=== PATIENT | female | born 1975 | race Caucasian/White ===

== ENCOUNTER → 2017-02-15 | Outpatient (CLI) | payer BC, MEDICAID, OTHER ==
[~2017-02-15] MED LIST: HYDR-757 PO; PREN1TAB39 PO
--- NOTE | 2017-02-19 14:03 | Diagnostic Imaging Report ---
EXAMINATION: Bilateral screening mammogram 2D views with tomosynthesis. The current study was also evaluated with a Computer Aided Detection (CAD) system. INDICATION: Screening. PERSONAL HISTORY: No current complaints stated on the questionnaire. COMPARISON: None. This is a baseline study. FINDINGS: The breasts are composed of scattered fibroglandular densities. There are occasional benign-appearing calcifications. No mass, architectural distortion, or suspicious cluster of calcifications. IMPRESSION: No mammographic evidence of malignancy. Annual screening mammograms are recommended. ACR BI-RADS Category 2: Benign findings. Result letter will be mailed to the patient. Note: At least 10% of breast cancer is not imaged by mammography. Dictated by: Dictated on workstation # [id number]
== END ==
LOC: RAD 14:31
PROVIDERS: ATTEND Nurse Practitioner Family
DX: Z12.31 Encounter for screening mammogram for malignant neoplasm of breast (principal)
CPT/HCPCS: 77067

== ENCOUNTER 2018-07-11 08:28 | Inpatient (IN) | payer SELFPAY ==
[~2018-07-11] VITALS: Ht 154.9 cm; Wt 122.0 kg
[2018-07-11] MEDS ORDERED: NS IV 500 ML 500 ML IV ONE (08:44)
[2018-07-11] MEDS ORDERED: NS IV 1000 ML 1,000 ML IV SCH (08:44)
[2018-07-11] MEDS ORDERED: ONDANSETRON 4 MG/2 ML (SDV) Z0FRAN IV PRN (08:45)
[2018-07-11] MEDS ORDERED: KETOROLAC 30 MG/ML VIAL IVP ONE (08:45)
[2018-07-11] MEDS ORDERED: cefTRIAXone FOR IV USE 1,000 MG in WATER (STERILE) FOR INJECTION 10 ML IV ONE (08:45)
--- NOTE | 2018-07-11 08:53 | ED GU-Female ---
General Chief Complaint: - Urinary Stated Complaint: LOWER ABD/BACK PAIN Source: patient Exam Limitations: no limitations History of Present Illness Date Seen by Provider: Jul 11, 2018 Time Seen by Provider: 08:40 Initial Comments The patient presents to ER by private conveyance with chief complaint of 5 days of left lower quadrant inguinal pain radiating around from her left flank. She is having dysuria, nausea and severe pain. The pain is coming and going worse with movement. She has a history of kidney stones with her last one being about 10 years ago after she had to have lithotripsy. She went to her doctor a few days ago and was put on antibiotic told she had a severe UTI 5 days she's completed those antibiotics but still does not feel any better. She denies any diarrhea or constipation. Allergies and Home Medications Allergies Coded Allergies: clindamycin (Unverified Allergy, Unknown, 07/11/18) Home Medications Nitrofurantoin Monohyd/M-Cryst 100 Mg Capsule, 1 TAB PO BID, (Reported) Patient Home Medication List Home Medication List Reviewed: Yes Review of Systems Review of Systems Constitutional: chills; No fever; malaise EENTM: No ear discharge, No ear pain Respiratory: No cough, No wheezing Cardiovascular: No chest pain, No edema Gastrointestinal: see HPI, abdominal pain; No constipation, No diarrhea; nausea , vomiting Genitourinary: denies discharge, denies dysuria : No Musculoskeletal: see HPI; No back pain, No joint pain Past Lrytszi-Estpos-Kpcowg Hx Patient Social History Alcohol Use: Denies Use Recreational Drug Use: No Smoking Status: Never a Smoker Recent Foreign Travel: No Contact w/Someone Who Travel: No Seasonal Allergies Seasonal Allergies: No Past Medical History Reproductive Disorders: No Physical Exam Vital Signs Vital Signs - First Documented 07/11/18 08:35 Temp 100.7 Pulse 131 Resp 24 B/P (MAP) 125/67 (86) Pulse Ox 96 Capillary Refill : Height, Weight, BMI Height: 5'3" Weight: 200lbs. oz. 90.003899rb; BMI Method:Stated General Appearance: WD/WN, mild distress HEENT: PERRL/EOMI, pharynx normal Cardiovascular: normal peripheral pulses, regular rate, rhythm, no edema, tachycardia Respiratory: lungs clear, normal breath sounds, no respiratory distress, no accessory muscle use Gastrointestinal: normal bowel sounds, soft, tenderness (suprapubic and left lower quadrant tenderness to palpation) Extremities: normal range of motion, non-tender, normal inspection, normal capillary refill Neurologic/Psychiatric: alert, normal mood/affect, oriented x 3 Skin: normal color, warm/dry Focused Exam Lactate Level 07/11/18 08:45: Lactic Acid Level 1.46 Lactic Acid Level Laboratory Tests Test 07/11/18 08:45 Lactic Acid Level 1.46 MMOL/L (0.50-2.00) Progress/Results/Core Measures Suspected Sepsis SIRS Temperature: Pulse: Respiratory Rate: Laboratory Tests 07/11/18 08:45: White Blood Count 31.8*H Blood Pressure / Mean: 07/11/18 08:45: Lactic Acid Level 1.46 Laboratory Tests 07/11/18 08:45: Creatinine 0.75, INR Comment 1.1, Platelet Count 412H, Total Bilirubin 1.0 Results/Orders Lab Results Laboratory Tests Test 07/11/18 08:45 Range/Units White Blood Count 31.8 *H 4.3-11.0 10^3/uL Red Blood Count 4.50 4.35-5.85 10^6/uL Hemoglobin 12.1 11.5-16.0 G/DL Hematocrit 37 35-52 % Mean Corpuscular Volume 83 80-99 FL Mean Corpuscular Hemoglobin 27 25-34 PG Mean Corpuscular Hemoglobin Concent 32 32-36 G/DL Red Cell Distribution Width 14.8 H 10.0-14.5 % Platelet Count 412 H 130-400 10^3/uL Mean Platelet Volume 9.3 7.4-10.4 FL Neutrophils (%) (Auto) 87 H 42-75 % Lymphocytes (%) (Auto) 5 L 12-44 % Monocytes (%) (Auto) 8 0-12 % Eosinophils (%) (Auto) 0 0-10 % Basophils (%) (Auto) 0 0-10 % Neutrophils # (Auto) 27.5 H 1.8-7.8 X 10^3 Lymphocytes # (Auto) 1.7 1.0-4.0 X 10^3 Monocytes # (Auto) 2.6 H 0.0-1.0 X 10^3 Eosinophils # (Auto) 0.0 0.0-0.3 10^3/uL Basophils # (Auto) 0.0 0.0-0.1 10^3/uL Neutrophils % (Manual) 91 % Lymphocytes % (Manual) 5 % Monocytes % (Manual) 4 % Eosinophils % (Manual) 0 % Basophils % (Manual) 0 % Band Neutrophils 0 % Blood Morphology Comment NORMAL Prothrombin Time 14.0 12.2-14.7 SEC INR Comment 1.1 0.8-1.4 Activated Partial Thromboplast Time 37 H 24-35 SEC Urine Color YELLOW Urine Clarity CLEAR Urine pH 7 5-9 Urine Specific [place] 1.005 L 1.016-1.022 Urine Protein 2+ H NEGATIVE Urine Glucose (UA) NEGATIVE NEGATIVE Urine Ketones 3+ H NEGATIVE Urine Nitrite NEGATIVE NEGATIVE Urine Bilirubin NEGATIVE NEGATIVE Urine Urobilinogen NORMAL NORMAL MG/DL Urine Leukocyte Esterase 1+ H NEGATIVE Urine RBC (Auto) 5+ H NEGATIVE Urine RBC 5-10 H /HPF Urine WBC RARE /HPF Urine Squamous Epithelial Cells 2-5 /HPF Urine Crystals NONE /LPF Urine Bacteria NEGATIVE /HPF Urine Casts NONE /LPF Urine Mucus NEGATIVE /LPF Urine Culture Indicated CULTURE PENDING Sodium Level 133 L 135-145 MMOL/L Potassium Level 3.8 3.6-5.0 MMOL/L Chloride Level 98 98-107 MMOL/L Carbon Dioxide Level 23 21-32 MMOL/L Anion Gap 12 5-14 MMOL/L Blood Urea Nitrogen 6 L 7-18 MG/DL Creatinine 0.75 0.60-1.30 MG/DL Estimat Glomerular Filtration Rate > 60 BUN/Creatinine Ratio 8 Glucose Level 162 H 70-105 MG/DL Lactic Acid Level 1.46 0.50-2.00 MMOL/L Calcium Level 9.3 8.5-10.1 MG/DL Corrected Calcium 9.5 8.5-10.1 MG/DL Total Bilirubin 1.0 0.1-1.0 MG/DL Aspartate Amino Transf (AST/SGOT) 12 5-34 U/L Alanine Aminotransferase (ALT/SGPT) 10 0-55 U/L Alkaline Phosphatase 81 40-136 U/L Total Protein 7.5 6.4-8.2 GM/DL Albumin 3.7 3.2-4.5 GM/DL My Orders Orders - CHRISTOPH GIBBS Ua Culture If Indicated (07/11/18 08:34) Urine Bedside (07/11/18 08:34) Ketorolac Injection (Toradol Injection) (07/11/18 08:45) Ct Abd/Pelvis Wo(Kidney Stone) (07/11/18 08:44) Abdomen/Kub 1view (07/11/18 08:44) Cbc With Automated Diff (07/11/18 08:44) Comprehensive Metabolic Panel (07/11/18 08:44) Blood Culture (07/11/18 08:44) Urine Culture (07/11/18 08:44) Protime With Inr (07/11/18 08:44) Partial Thromboplastin Time (07/11/18 08:44) Saline Lock/Iv-Start (07/11/18 08:44) Saline Lock/Iv-Start (07/11/18 08:44) Vital Signs Adult Sepsis Patie Q15M (07/11/18 08:44) Ondansetron Injection (Zofran Injectio (07/11/18 08:45) O2 (07/11/18 08:44) Remove Rings In Anticipation O (07/11/18 08:44) Lactic Acid Analyzer (07/11/18 08:44) Ns Iv 1000 Ml (Sodium Chloride 0.9%) (07/11/18 08:44) Ceftriaxone For Iv Use (Rocephin For I (07/11/18 08:45) Saline Lock/Iv-Start (07/11/18 08:44) Ns Iv 500 Ml (Sodium Chloride 0.9%) (07/11/18 08:44) Manual Differential (07/11/18 08:45) Piperacillin/Tazobactam (Bulk) (Zosyn In (07/11/18 09:30) Medications Given in ED Current Medications Medications Dose Ordered Sig/Carmen Route Start Time Stop Time Status Last Admin Dose Admin Ketorolac Tromethamine 30 mg ONCE ONCE IVP 07/11/18 08:45 07/11/18 08:49 DC 07/11/18 09:02 30 MG Ondansetron HCl 4 mg PRN PRN IV 07/11/18 08:45 07/11/18 09:03 DC 07/11/18 09:02 4 MG Piperacillin Sod/ Tazobactam Sod 4.5 gm/Sodium Chloride 120 ml @ 240 mls/hr ONCE ONCE IV 07/11/18 09:30 07/11/18 09:59 DC 07/11/18 09:42 240 MLS/HR Sodium Chloride 500 ml @ 0 mls/hr Q0M ONCE IV 07/11/18 08:44 07/11/18 08:49 DC 07/11/18 09:45 500 MLS/HR Vital Signs/I&O 07/11/18 08:35 Temp 100.7 Pulse 131 Resp 24 B/P (MAP) 125/67 (86) Pulse Ox 96 Capillary Refill : Progress Note : Time: Progress Note Kidney stone versus pyelonephritis. Get a CT scan, abdominal x-ray, septic workup. We adjusted her body weight to 146 pounds based on an ideal body weight adjustment. This puts a 20 mL/kg bolus at 1500 cc. The plan was initially to give Rocephin but we are going to switch this to Zosyn as it appears to be an intra-abdominal abscess. Diagnostic Imaging Diagonstic Imaging: Xray Plain Films/CT/US/NM/MRI: abdomen (kub) Comments [facility], [place] NAME: SAMMY BRADFORD Michelle [facility] REC#: [id number] PT STATUS: REG ER : 1975 PHYSICIAN: CHRISTOPH GIBBS MD ADMIT DATE: 07/11/18/ER Draft Date of Exam:07/11/18 ABDOMEN/KUB 1VIEW Supine abdomen at 913 hours. INDICATION: Abdominal pain. 2 supine views were obtained. FINDINGS: There is a 4.8 MM calcification overlying the left pelvis and a 3.5 MM calculus overlying the right pelvis. There is also a 5 MM calculus overlying the superior pole of the left kidney and a 2.3 MM calculus overlying the superior pole of the right kidney. None of these calcifications were evident on the prior exam of 07/09/2007. It is possible that the calcifications overlying the kidneys are intrarenal and that the calcifications in the pelvis are within the ureters. Reportedly, CT of the abdomen or pelvis is pending for further study. There is gas in both large and small bowel in a nonspecific fashion. There is no sign of bowel obstruction. There is no mass or organomegaly appreciated. The osseous structures are intact. IMPRESSION: There are calcifications overlying the kidneys in the expected paths of the ureters. Reportedly, CT of the abdomen and pelvis is pending for further study. Dictated on workstation # [id number] Dict: 07/11/18918 Trans: 07/11/18932 [id number] Interpreted by: VAMSI HENDRICKS MD Electronically signed by: Reviewed: Reviewed by Me Diagonstic Imaging: CT (kidney stone study noncontrast) Plain Films/CT/US/NM/MRI: abdomen, pelvis Comments There is a phlegmon of inflammation and at the level of the left side of the uterus and ovary as well as the sigmoid colon. There is diverticula on the sigmoid colon and some free air which would indicate a possible perforated diverticulitis versus tubo-ovarian abscess. There are kidney stones but no ureteral stones. Reviewed: Reviewed by Me, Discussed w/Radiologist (Isaias Romo) Consults Consults : Consulting Physician: EDNA WILLIAM MD Consults Notes Discussed the case with Dr. William surgery nurse and he would come by and see the patient as soon as he is available. 1030: Discussed the case after he is reviewed the images. Dr. Romo from radiology does not feel he could put a pigtail in because is not mature enough yet. He will see the patient up on the floor we will admit to him on IV fluids, antibiotics, pain meds. Departure Communication (Admissions) Time/Spoke to Admitting Phy: 10:30 Dr. William accepts the patient on IV fluids, antibiotics, pain medicines and will see the patient. Impression Primary Impression: Perforation and abscess of large intestine concurrent with and due to diverticulitis Additional Impression: Sepsis Qualified Codes: A41.9 - Sepsis, unspecified organism Disposition: ADMITTED INPATIENT Condition: Stable Admissions Decision to Admit Reason: Admit from ER (General) Decision to Admit/Date: Jul 11, 2018 Time/Decision to Admit Time: 09:32 Departure-Patient Inst. Referrals: [facility] [place] (PCP) Primary Care Physician CHRISTOPH GIBBS Jul 11, 2018 08:52
[2018-07-11 09:02] LABS: BASOPHILS % (AUTO) 0 % (0-10); EOSINOPHILS % (AUTO) 0 % (0-10); HEMATOCRIT 37 % (35-52); HEMOGLOBIN 12.1 G/DL (11.5-16.0); LYMPHOCYTES # (AUTO) 1.7 X 10^3 (1.0-4.0); LYMPHOCYTES % (AUTO) 5 % (12-44); MEAN CORPUSCULAR HEMOGLOBIN 27 PG (25-34); MEAN CORPUSCULAR HGB CONC 32 G/DL (32-36); MEAN CORPUSCULAR VOLUME 83 FL (80-99); MEAN PLATELET VOLUME 9.3 FL (7.4-10.4); MONOCYTES # (AUTO) 2.6 X 10^3 (0.0-1.0); MONOCYTES % (AUTO) 8 % (0-12); NEUTROPHILS # (AUTO) 27.5 X 10^3 (1.8-7.8); NEUTROPHILS % (AUTO) 87 % (42-75); PLATELET COUNT 412 10^3/uL (130-400); RED CELL DISTRIBUTION WIDTH 14.8 % (10.0-14.5)
[2018-07-11 09:04] LABS: WHITE BLOOD COUNT 31.8 10^3/uL (4.3-11.0)
[2018-07-11 09:07] LABS: BILIRUBIN,URINE NEGATIVE (NEGATIVE); GLUCOSE, URINE (UA) NEGATIVE (NEGATIVE); KETONES,URINE 3+ (NEGATIVE); LEUKOCYTE ESTERASE ,URINE 1+ (NEGATIVE); NITRITE,URINE NEGATIVE (NEGATIVE); PH,URINE 7 (5-9); PROTEIN,URINE 2+ (NEGATIVE); UROBILINOGEN,URINE NORMAL (NORMAL)
[2018-07-11 09:19] LABS: BAND NEUTROPHILS 0 %; BASOPHILS % (MANUAL) 0 %; EOSINOPHILS % (MANUAL) 0 %; INR 1.1 (0.8-1.4); LYMPHOCYTES % (MANUAL) 5 %; MONOCYTES % (MANUAL) 4 %; NEUTROPHILS % (MANUAL) 91 %; RBC MORPH NORMAL
[2018-07-11 09:22] LABS: ALANINE AMINOTRANSFERASE 10 U/L (0-55); ALBUMIN 3.7 GM/DL (3.2-4.5); ALKALINE PHOSPHATASE 81 U/L (40-136); BUN/CREATININE RATIO 8; CALCIUM 9.3 MG/DL (8.5-10.1); CARBON DIOXIDE 23 MMOL/L (21-32); CHLORIDE 98 MMOL/L (98-107); CREATININE SERUM 0.75 MG/DL (0.60-1.30); GFR ESTIMATED > 60; GLUCOSE 162 MG/DL (70-105); POTASSIUM 3.8 MMOL/L (3.6-5.0); SODIUM 133 MMOL/L (135-145); TOTAL PROTEIN 7.5 GM/DL (6.4-8.2)
[2018-07-11 09:23] LABS: BACTERIA,URINE NEGATIVE /HPF; CLARITY,URINE CLEAR; COLOR,URINE YELLOW; WBC,URINE RARE /HPF
[2018-07-11] MEDS ORDERED: PIPERACILLIN/TAZOBACTAM (BULK) 4.5 GM in NS (IVPB) 100 ML IV ONE (09:30)
--- NOTE | 2018-07-11 09:34 | Diagnostic Imaging Report ---
Supine abdomen at 913 hours. INDICATION: Abdominal pain. 2 supine views were obtained. FINDINGS: There is a 4.8 MM calcification overlying the left pelvis and a 3.5 MM calculus overlying the right pelvis. There is also a 5 MM calculus overlying the superior pole of the left kidney and a 2.3 MM calculus overlying the superior pole of the right kidney. None of these calcifications were evident on the prior exam of 07/09/2007. It is possible that the calcifications overlying the kidneys are intrarenal and that the calcifications in the pelvis are within the ureters. Reportedly, CT of the abdomen or pelvis is pending for further study. There is gas in both large and small bowel in a nonspecific fashion. There is no sign of bowel obstruction. There is no mass or organomegaly appreciated. The osseous structures are intact. IMPRESSION: There are calcifications overlying the kidneys and the expected paths of the ureters. Reportedly, CT of the abdomen and pelvis is pending for further study. Dictated by: Dictated on workstation # [id number]
[2018-07-11] MEDS ORDERED: NITR-65 PO (09:53)
[2018-07-11] MEDS ORDERED: PHEN-639 PO (09:53)
--- NOTE | 2018-07-11 09:54 | Diagnostic Imaging Report ---
PROCEDURE: CT urinary tract, rule out kidney stone. TECHNIQUE: Multiple contiguous axial images were obtained through the abdomen and pelvis without the use of intravenous contrast. Auto Exposure Controls were utilized during the CT exam to meet ALARA standards for radiation dose reduction. INDICATION: Left lower abdominal pain radiating to the back. The patient does have a history of kidney stones. Correlation is made with prior CT from 06/13/2007. The lung bases are clear of acute infiltrates. The liver and gallbladder are unremarkable. No biliary duct dilatation is seen. The pancreas and spleen are unremarkable. No adrenal mass is detected. Bilateral nonobstructing renal calculi are noted, the largest in the upper pole left kidney measuring approximately 6 mm. No definite ureteral calculi or hydronephrosis is seen. No bladder calculi identified. Aorta is nonaneurysmal. Bowel loops are normal caliber. Marked inflammatory changes are identified in the midline and left hemipelvis. There are some diverticuli within the sigmoid colon. Along the left aspect of the uterine fundus, there is an area of rounded soft tissue which contains some small air bubbles. This measures 4.7 x 3.6 cm. There are additional small air bubbles which are extraluminal located between the uterus and the sigmoid. Marked surrounding inflammatory changes are seen. Inflammatory changes extend deep into the left pelvis. The left ovary is not definitely identified. Right ovary is unremarkable. There is no free fluid identified. IMPRESSION: 1. Bilateral nonobstructing nephrolithiasis. 2. Marked inflammatory changes in the pelvis, as described with small gas bubbles present. While this may merely represent acute diverticulitis with microperforation and phlegmon formation adjacent to the uterine fundus, other etiology would include tubo-ovarian abscess with small gas-forming organisms creating small air bubbles with some adjacent secondary inflammatory changes involving the sigmoid. No well-formed fluid collection is identified at this time. Dictated by: Dictated on workstation # [id number]
--- OUTSIDE RECORDS SUMMARY | 2018-07-11 11:36 | XMS REPORT ---
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 [id number] [place] [address] Feb, Viral upper respiratory tract infection J06.9 and BMI 50.0- 59.9, adult Z68.43 [id number] [place] [id number] August, Low sodium levels E87.1 and Lipid screening Z13.220 [address] [place] [address] [id number] August, Polydipsia R63.1 ; History of gestational diabetes Z86.32 ; Morbid (severe ) obesity due to excess calories E66.01 ; Body mass index (BMI) of 50-59.9 in adult Z68.43 ; Polyphagia R63.2 ; Frequent urination R35.0 and BMI 50.0-59.9, adult Z68.[address] [facility] [address] [id number] [id number] Jun, Strep throat J02.0 and Cough R05 [facility] [address] [address] May, 2018 BMI 50.0-59.9, adult Z68.43 ; Sore throat J02.9 and Strep throat J02.0 [facility] [id number] [id number] Jan, 2017 Well woman exam with routine gynecological exam Z01.419 ; Screening breast examination Z12.31 ; High risk sexual behavior Z72.51 ; Other obesity due to excess calories E66.09 ; Body mass index (BMI) of 50-59.9 in adult Z68.43 ; Tobacco abuse Z72.0 and Tobacco abuse counseling Z71.6 [facility] [id number] [place] [address] May, Sore throat J02.9 [facility] [id number] [place] [address]67 May, [facility] [id number] [place] [address]159[address] Feb, [facility] [id number] [place] [address]5814- [address]26 Jun, [facility] [id number] [place] [address]12[address] 8072 Apr, Ankle pain, left M25.572 [facility] [id number] [place] [address] Apr, [facility] [id number] [place] [address] Apr, Ankle pain, left M25.572 [facility] [id number] [place] [address] 68974- 1340 Dec, ASCUS with positive high risk HPV cervical 795.01 [id number] [place] [address]0982- 8[address] 16 Dec, 2014 Gestational diabetes mellitus, delivered 648.81 [id number] [place] [address]343[address] 14 Dec, 2014 Routine follow-up V24.2 ; General counselling and advice on contraception V25.09 and Gestational diabetes mellitus, delivered 648.81 [place] [id number] [place] [address]31[address] Nov, Oligohydramnios in second trimester 658.03 ; Rupture, membranes, premature 658.10 ; Gestational diabetes 648.80 and Supervision of high-risk of elderly multigravida V23.82 [address] [id number] [place] [address]17[address] 4[address] Oct, Supervision of high-risk of elderly multigravida V23.82 and premature rupture of membranes (PPROM) with unknown onset of labor 658.10 [address] [id number] [place] [address] 03043[address] 9469 Oct, Supervision of high-risk of elderly multigravida V23.82 and premature rupture of membranes (PPROM) with unknown onset of labor 658.10 [place] [id number] [place] [address] 30843[address] 1666 Oct, Supervision of high-risk of elderly multigravida V23.82 ; TDAP DX V06.1 ; Oligohydramnios in second trimester 658.03 ; premature rupture of membranes (PPROM) with unknown onset of labor 658.10 and Gestational diabetes 648.80 [address] [place] [id number] [place] [address]68- 4706 Oct, Oligohydramnios in second trimester 658.03 ; premature rupture of membranes (PPROM) with unknown onset of labor 658.10 ; Supervision of high-risk of elderly multigravida V23.82 and Gestational diabetes 648.80 [facility] [address] [address] Sep, [facility] [id number] [place] [address] 85604- 1096 Sep, Abnormal glucose tolerance in 648.80 [facility] [address] [place] [address] 87051- 4721 Sep, Oligohydramnios in second trimester 658.03 ; Rupture, membranes, premature 658.10 and Supervision of high-risk of elderly multigravida V23.82 [facility] [address] [place] [address] 37111- 7799 Sep, [facility] [id number] [place] [address]86- 2005 Sep, [address] [id number] [place] [address] 85732- 0486 Sep, [facility] [address] [place] [address] 72263- 1114 Sep, [facility] [address] [place] [address] 40382- 5640 Sep, Supervision of high-risk of elderly multigravida V23.82 ; Oligohydramnios in second trimester 658.03 and premature rupture of membranes (PPROM) with unknown onset of labor 658.10 [address] [place] [address] 08187- 8863 August, Supervision of high-risk of elderly multigravida V23.82 [facility] [address] [address] Jul, [facility] [address] [place] [address] 38368- 3911 Jul, [facility] [address] [address] Jun, [facility] [place] [facility] [address] [id number] [place] [address] Jun, [facility] [place] [facility] [address] [id number] [place] [address] Jun, [facility] [place] [facility] [address] [id number] [place] [address] Jun, [facility] [place] [facility] [address] [id number] [place] [address]- 4708 Jun, [facility] [place] [facility] [address] [id number] [place] [address] Jun, [facility] [place] [facility] [address] [id number] [place] [address]- 5330 Jun, [facility] [place] [facility] [address] [facility] [id number] [place] [address] Jun, [facility] [place] [facility] [address] [id number] [place] [address]- 65[address] Jun, [facility] [place] [facility] [address] [id number] [place] [address] 3310 May, [facility] [place] [facility] [address] [id number] [place] [address]- 2292 May, [facility] [place] [facility] [address] [facility] [id number] [place] [address]- 2573 May, [facility] [place] [facility] [address] [id number] [place] [address]- 6543 May, [facility] [place] [facility] [address] [id number] [place] [address]- 5066 May, [facility] [place] [facility] [address] [id number] [place] [address]- 4699 May, [facility] [place] [facility] [address] [facility] [id number] [place] [address]- 47[address] May, [facility] [place] [facility] [address] [facility] [id number] [address] May, 2014 [facility] [address] [facility] [id number] [address] May, 2014 [facility] [place] [facility] [address] [facility] [id number] [address] May, 2014 [facility] [address] [facility] [id number] [address] May, 2014 [facility] [place] [facility] [address] [facility] [id number] [address] May, 2014 [facility] [address] [facility] [id number] [address] May, 2014 [facility] [address] [id number] [id number] Apr, [facility] [address] [address] Apr, [facility] [address] [id number] [place] [id number] Nov, [facility] [address] [id number] [place] [id number] Apr, [facility] [address] [facility] [id number] [place] [id number] Apr, [facility] [place] [facility] [address] [address] Jan, [facility] [place] [facility] [address] [facility] [id number] [address] Jan, [facility] [address] [id number] [place] [id number] Jan, [facility] [address] [id number] RIVER[place] [id number] Dec, [facility] [address] [id number] [place] [id number] Nov, [facility] [address] [id number] [place] [id number] Oct, [facility] [place] [facility] [id number] [address] Mar, [facility] [id number] [address] Mar, [facility] [address] [address] Mar, [facility] [address] [address]67 Sep, [facility] [address] [address] May, [facility] [address] [place] [address] 97450- 6251 Mar, [facility] [address] [address] May, IMMUNIZATIONS Vaccine Route Administration Date Status DEXAMETHASONE 4MG/ML (PER 1 MG) IM Intramuscular Mar 11, 2018 Administered DEPO MEDROL 40 MG/ML IM Intramuscular Mar 11, 2018 Administered SOCIAL HISTORY Never Assessed REASON FOR VISIT sore throat; swallowing hurts on the left side/feels raw - JORDAN Mosley, Taking Tylenol and NyQuil PLAN OF CARE Activity Details Follow Up if not improving with PCP or reg follow up Reason: VITAL SIGNS Height 61 in 2018-03-11 Weight 271.0 lbs 2018-03-11 Temperature 98.1 degrees Fahrenheit 2018-03-11 Heart Rate 80 bpm 2018-03-11 Respiratory Rate 2018-03-11 BMI 51.20 kg/m2 2018-03-11 Blood pressure systolic 130 mmHg 2018-03-11 Blood pressure diastolic 80 mmHg 2018-03-11 MEDICATIONS Medication Instructions Dosage Frequency Start Date End Date Duration Status Tylenol Cold/Flu Severe 3-29-727-325 MG Orally Four times a day 2 tablets as needed 6h Active NyQuil Cold & Flu Active RESULTS No Results PROCEDURES Procedure Date Ordered Result Body Site DEPO MEDROL 40 MG/ML Mar 11, 2018 DEXAMETHASONE 4MG/ML (PER 1 MG) Mar 11, 2018 THER/PROPH/DIAG INJ, SC/IM Mar 11, 2018 INSTRUCTIONS MEDICATIONS ADMINISTERED No Known Medications MEDICAL (GENERAL) HISTORY Type Description Date Medical History hx of Gestational DM Surgical History tubal ligation Surgical History Kidney stones 2006 Hospitalization History child Hospitalization History flu with tiago Ackerman 1992
--- OUTSIDE RECORDS SUMMARY | 2018-07-11 11:37 | XMS REPORT ---
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
--- OUTSIDE RECORDS SUMMARY | 2018-07-11 11:37 | XMS REPORT ---
Author Author KELLY CENTENO eClinicalWorks Address Unknown Phone Unavailable Care Team Providers Care Consulting Technical Director Name Role Phone KELLY CENTENO CP Unavailable Allergies, Adverse Reactions, Alerts Substance Reaction Event Type N.K.D.A. 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 Assessment Routine follow-up V24.2 Active Problem Gestational diabetes mellitus, delivered 648.81 Active Assessment General counselling and advice on contraception V25.09 Active Assessment Gestational diabetes mellitus, delivered 648.81 Active Medications No Known Medications Procedures Procedure Coding System Code Date Office Visit, Est Pt., Level 3 CPT-4 88201 Jan 03, 2015 URINE TEST CPT-4 91084 Jan 03, 2015 Vital Signs Date/Time: Jan 03, 2015 Temperature 98.0 F Weight 261.5 lbs Height 61 in BMI 49.40 Index Blood Pressure Diastolic 76 mmHg Blood Pressure Systolic 130 mmHg Results No Known Results Summary Purpose eClinicalWorks Submission
--- OUTSIDE RECORDS SUMMARY | 2018-07-11 11:37 | XMS REPORT ---
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 204240223 Problem Morbid (severe) obesity due to excess calories E66.01 Active 81610643111470 Problem Polydipsia R63.1 Active 52250804 Problem Body mass index (BMI) of 50-59.9 in adult Z68.43 Active 209019557 Problem Other obesity due to excess calories E66.09 Active 68370630583293 Problem Polyphagia R63.2 Active 535394087 Problem History of gestational diabetes Z86.32 Active 990172985 ALLERGIES Substance Reaction Event Type Date Status Clindamycin HCl hives Drug Allergy Jan, Active ENCOUNTERS Encounter Location Date Diagnosis [facility] [address] [facility] [id number] [id number] August, [address] [id number][place] [id number] August, Polydipsia R63.1 ; History of gestational diabetes Z86.32 ; Morbid (severe ) obesity due to excess calories E66.01 ; Body mass index (BMI) of 50-59.9 in adult Z68.43 ; Polyphagia R63.[address] [facility] [address] [id number] [id number] Jun, Strep throat J02.0 and Cough R05 [facility] [address] [facility] [id number] [address] 07 Feb, 2018 BMI 50.0-59.9, adult Z68.43 ; Sore throat J02.9 and Strep throat J02.0 [facility] [id number] [address] Jan, Well woman exam with routine gynecological exam Z01.419 ; Screening breast examination Z12.31 ; High risk sexual behavior Z72.51 ; Other obesity due to excess calories E66.09 ; Body mass index (BMI) of 50-59.9 in adult Z68.43 ; Tobacco abuse Z72.0 and Tobacco abuse counseling Z71.6 [facility] [id number] [place] [address]47 May, Sore throat J02.9 [place] [id number] [place] [address] 36461- 4748 May, [place] [id number] [place] [address] 89607- 3253 Feb, [facility] [id number] [place] [address] 50333- 8295 Jun, [facility] [id number] [place] [address] 67266- 9799 Apr, Ankle pain, left M25.572 [facility] [id number] [place] [address]94 [address]0696 Apr, [facility] [id number] [place] [address] 21298 [address]6508 Apr, Ankle pain, left M25.572 [facility] [id number] [place] [address] 10096- 5789 21 Dec, 2014 ASCUS with positive high risk HPV cervical 795.01 [place] [id number] [place] [address] 05151- 2864 16 Dec, 2014 Gestational diabetes mellitus, delivered 648.81 [place] [address] [address]- 1652 Dec, Routine follow-up V24.2 ; General counselling and advice on contraception V25.09 and Gestational diabetes mellitus, delivered 648.[address] [address] Nov, Oligohydramnios in second trimester 658.03 ; Rupture, membranes, premature 658.10 ; Gestational diabetes 648.80 and Supervision of high-risk of elderly multigravida V23.[address] [address]- [address]058 Oct, Supervision of high-risk of elderly multigravida V23.82 and premature rupture of membranes (PPROM) with unknown onset of labor 658.[address] [address]- [address]33 Oct, Supervision of high-risk of elderly multigravida V23.82 and premature rupture of membranes (PPROM) with unknown onset of labor 658.[address] [address]74- 4505 Oct, Supervision of high-risk of elderly multigravida V23.82 ; TDAP DX V06.1 ; Oligohydramnios in second trimester 658.03 ; premature rupture of membranes (PPROM) with unknown onset of labor 658.10 and Gestational diabetes 648.[address] [place] [id number] [place] [address] 20413- 2267 Oct, Oligohydramnios in second trimester 658.03 ; premature rupture of membranes (PPROM) with unknown onset of labor 658.10 ; Supervision of high-risk of elderly multigravida V23.82 and Gestational diabetes 648.80 [place] [id number] [place] [address] 50190- 6579 Sep, [address] 33068- 8502 Sep, Abnormal glucose tolerance in 648.80 [place] [address]00565100[place] [address] Sep, Oligohydramnios in second trimester 658.03 ; Rupture, membranes, premature 658.10 and Supervision of high-risk of elderly multigravida V23.82 [facility] [address]00565100[place] [address] 80[address] Sep, [facility] [id number] [place] [address] 01504- 5613 Sep, [facility] [address]00565100[place] [address] 9290 Sep, [facility] [address] [place] [address] 22855- 6851 Sep, [facility] [address] [place] [address] 83313- 2881 Sep, Supervision of high-risk of elderly multigravida V23.82 ; Oligohydramnios in second trimester 658.03 and premature rupture of membranes (PPROM) with unknown onset of labor 658.10 [facility] [address]00565100[place] [address] August, Supervision of high-risk of elderly multigravida V23.82 [facility] [address]00565100[place] [address] 4248 Jul, [facility] [address]005[address]100[place] [address] 89[address] Jul, [facility] [address]00565100[place] [address] 6646 Jun, [facility] [address] [id number] [address] 2810 Jun, [facility] [address]00565100[place] [address] 3860 Jun, [facility] [address] [id number] [address] 5130 Jun, [facility] [place] [facility] [address] [id number] [place] [address] 15[address] Jun, [facility] [place] [facility] [address] [facility] [id number] [place] [address]- 6363 Jun, [facility] [place] [facility] [address] [facility] [id number] [place] [address]- 2203 Jun, [facility] [place] [facility] [address] [id number] [place] [address]- 5097 Jun, [facility] [place] [facility] [address] [id number] [place] [address]- 8911 Jun, [facility] [place] [facility] [address] [facility] [id number] [place] [address]- 1996 May, 2014 [facility] [place] [facility] [address] [facility] [id number] [place] [address] 1952 May, 2014 [facility] [place] [facility] [address] [facility] [id number] [place] [address]- 8754 May, 2014 [facility] [place] [facility] [address] [facility] [id number] [place] [address]- 5675 May, 2014 [facility] [place] [facility] [address] [facility] [id number] [place] [address]- 5607 May, 2014 [facility] [place] [facility] [address] [facility] [id number] [place] [address]- 2622 May, 2014 [facility] [place] [facility] [address] [facility] [id number] [address]- 5585 May, 2014 [facility] [place] [facility] [address] [facility] [id number] [place] [address]- 5177 May, 2014 [facility] [place] [facility] [address] [facility] [id number] [place] [address]- 6536 May, 2014 [facility] [place] [facility] [address] [facility] [id number] [place] [address]- 7078 May, [facility] [address] [facility] [id number] [place] [address]- 0425 May, [facility] [place] [facility] [address] [facility] [id number] [place] [address]- 8011 May, [facility] [place] [facility] [address] [facility] [id number] [place] [address]- 4132 May, [facility] [address] [facility] [id number][place] [id number] Apr, [facility] [address] [facility] [id number] [address]- 5025 Apr, [facility] [id number] [place] [id number] Nov, [facility] [id number] [place] [id number] Apr, [facility] [id number] [place] [address] [id number] Apr, [facility] [address] [facility] [id number] [place] [address] 2386 Jan, [facility] [address] [address]- 0576 Jan, [facility] [id number][place] [address] Jan, [facility] [address] [id number][place] [id number] Dec, [facility] [address] [facility] [id number][place] [phone] Nov, [facility] [address] [facility] [id number][place] [id number] Oct, [facility] [place] [facility] [address] [facility] [id number] [place] [address]- 6543 Mar, [facility] [place] [facility] [address] [facility] [id number] [place] [address]- 0893 Mar, [facility] [place] [facility] [address] [address]- 8326 Mar, [facility] [address] [facility] [id number] [place] [address]- 2546 Sep, [facility] [address] [facility] [id number] [place] [address]- 2546 May, [facility] [address] [facility] [id number] [place] [address]- 2546 Mar, [facility] [address] [facility] [id number] [place] [address]- 2546 May, IMMUNIZATIONS No Known Immunizations SOCIAL HISTORY Never Assessed REASON FOR VISIT Breast exam, PAP Denise RN PLAN OF CARE Activity Details Follow Up 4 Weeks and prn Reason:lab review Pending Test ThinPrep Imaging Pap and HPV mRNA E6/E7 VITAL SIGNS Height 61 in 2017-02-12 Weight 274.8 lbs 2017-02-12 Temperature 97.2 degrees Fahrenheit 2017-02-12 Heart Rate 84 bpm 2017-02-12 Respiratory Rate 18 2017-02-12 BMI 51.92 kg/m2 2017-02-12 Blood pressure systolic 128 mmHg 2017-02-12 Blood pressure diastolic 68 mmHg 2017-02-12 MEDICATIONS Unknown Medications RESULTS No Results PROCEDURES Procedure Date Ordered Result Body Site CHYLMD TRACH, DNA, AMP PROBE Feb 12, 2017 N.GONORRHOEAE, DNA, AMP PROB Feb 12, 2017 VENIPUNCT, ROUTINE* Feb 12, 2017 COMPLETE CBC W/AUTO DIFF WBC Feb 12, 2017 COMPREHEN METABOLIC PANEL Feb 12, 2017 TRICHOMONAS ASSAY W/OPTIC Feb 12, 2017 Bacterial Vaginosis In House Feb 12, 2017 LIPID PANEL Feb 12, 2017 ASSAY THYROID STIM HORMONE Feb 12, 2017 CULTURE, BACTERIA, OTHER Feb 12, 2017 SPECIMEN HANDLING Feb 12, 2017 INSTRUCTIONS MEDICATIONS ADMINISTERED No Known Medications MEDICAL (GENERAL) HISTORY Type Description Date Medical History hx of Gestational DM Surgical History tubal ligation Surgical History Kidney stones 2006 Hospitalization History child Hospitalization History flu with tiago Ackerman 1992
--- OUTSIDE RECORDS SUMMARY | 2018-07-11 11:37 | XMS REPORT ---
Author Author SOULEYMANE DE LA CRUZ Organization 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 603790637 Problem Morbid (severe) obesity due to excess calories E66.01 Active 13989300147621 Problem Polydipsia R63.1 Active 04451245 Problem Body mass index (BMI) of 50-59.9 in adult Z68.43 Active 083965725 Problem Other obesity due to excess calories E66.09 Active 35811439222069 Problem Polyphagia R63.2 Active 793558979 Problem History of gestational diabetes Z86.32 Active 410192288 ALLERGIES Substance Reaction Event Type Date Status Clindamycin HCl hives Drug Allergy August, Active ENCOUNTERS Encounter Location Date Diagnosis [address] [id number] [id number] August, Low sodium levels E87.1 and Lipid screening Z13.220 [address]00565[address] [id number] August, Polydipsia R63.1 ; History of gestational diabetes Z86.32 ; Morbid (severe ) obesity due to excess calories E66.01 ; Body mass index (BMI) of 50-59.9 in adult Z68.43 ; Polyphagia R63.2 ; Frequent urination R35.0 and BMI 50.0-59.9, adult Z68.[address] [facility] [address] [id number] [id number] Jun, Strep throat J02.0 and Cough R05 [facility] [address] [id number], [place] [address] 07 May, 2018 BMI 50.0-59.9, adult Z68.43 ; Sore throat J02.9 and Strep throat J02.0 [facility] [id number], [place] [address] 24 Jan, 2017 Well woman exam with routine gynecological exam Z01.419 ; Screening breast examination Z12.31 ; High risk sexual behavior Z72.51 ; Other obesity due to excess calories E66.09 ; Body mass index (BMI) of 50-59.9 in adult Z68.43 ; Tobacco abuse Z72.0 and Tobacco abuse counseling Z71.6 [facility] [address] [place] [address]75 -6848 22 May, 2016 Sore throat J02.9 [place] [address] [id number] [place] [address] 46529- 5981 May, [facility] [id number] [place] [address] 85774- 0081 Feb, [facility] [place] [id number] [place] [address] 29238- 1926 Jun, [facility] [place] [id number] [place] [address] 36341- 7239 Apr, Ankle pain, left M25.572 [facility] [id number] [place] [address] 37579 -7748 14 Apr, 2015 [facility] [address] [place] [address] 48458 -1719 Apr, Ankle pain, left M25.572 [facility] [place] [id number] [place] [address] 13343- 3860 21 Dec, 2014 ASCUS with positive high risk HPV cervical 795.01 [facility] [place] [id number] [place] [address] 86189- 2539 16 Dec, 2014 Gestational diabetes mellitus, delivered 648.81 [place] [id number] [place] [address] 47412- 2242 14 Dec, 2014 Routine follow-up V24.2 ; General counselling and advice on contraception V25.09 and Gestational diabetes mellitus, delivered 648.81 [place] [id number] [place] [address] 50998- 3576 Nov, Oligohydramnios in second trimester 658.03 ; Rupture, membranes, premature 658.10 ; Gestational diabetes 648.80 and Supervision of high-risk of elderly multigravida V23.82 [place] [id number] [place] [address] 23363- 8624 Oct, Supervision of high-risk of elderly multigravida V23.82 and premature rupture of membranes (PPROM) with unknown onset of labor 658.10 [place] [id number] [place] [address] 59373- 9756 Oct, Supervision of high-risk of elderly multigravida V23.82 and premature rupture of membranes (PPROM) with unknown onset of labor 658.10 [place] [id number] [place] [address] 21325- 7907 Oct, Supervision of high-risk of elderly multigravida V23.82 ; TDAP DX V06.1 ; Oligohydramnios in second trimester 658.03 ; premature rupture of membranes (PPROM) with unknown onset of labor 658.10 and Gestational diabetes 648.80 [place] [address] [place] [address] 91385- 7486 Oct, Oligohydramnios in second trimester 658.03 ; premature rupture of membranes (PPROM) with unknown onset of labor 658.10 ; Supervision of high-risk of elderly multigravida V23.82 and Gestational diabetes 648.80 [place] [id number] [place] [address] 44581- 7969 Sep, [place] [address] [place] [address]- 7672 Sep, Abnormal glucose tolerance in 648.80 [facility] [place] [id number] [place] [address] 16754- 4358 Sep, Oligohydramnios in second trimester 658.03 ; Rupture, membranes, premature 658.10 and Supervision of high-risk of elderly multigravida V23.82 [facility] [place] [id number] [place] [address] 42142- 7569 Sep, [facility] [place] [id number] [place] [address] 75121- 9181 Sep, [facility] [place] [id number] [place] [address] 73383- 3723 Sep, [facility] [place] [id number] [place] [address] 95667- 5180 Sep, [facility] [place] [id number] [place] [address] 93611- 6852 Sep, Supervision of high-risk of elderly multigravida V23.82 ; Oligohydramnios in second trimester 658.03 and premature rupture of membranes (PPROM) with unknown onset of labor 658.10 [facility] [place] [address], [place] [address]- 3688 August, Supervision of high-risk of elderly multigravida V23.82 [facility] [place] [address] [place] [address] 81490- 3169 Jul, [facility] [place] [address] [place] [address] 67167- 4853 Jul, [facility] [place] [id number] [place] [address] [id number]- 7989 Jun, [facility] [place] [address], [place] [address]- 5555 Jun, [facility] [place] [id number] [place] [address] 96556- 0284 Jun, [facility] [place] [facility] [address] [id number] [place] [address]- 1411 Jun, [facility] [place] [facility] [address] [id number] [place] [address]- 3019 Jun, [facility] [place] [facility] [address] [facility] [id number] [place] [address]- 8085 Jun, [facility] [place] [facility] [address] [facility] [id number] [place] [address]- 7245 Jun, [facility] [place] [facility] [address] [id number] [place] [address]- 5804 Jun, [facility] [place] [facility] [address] [facility] [id number] [place] [address]- 3821 Jun, [facility] [place] [facility] [address] [facility] [id number] [place] [address]- 2817 May, [facility] [place] [facility] [address] [facility] [id number] [place] [address]- 0765 May, [facility] [place] [facility] [address] [facility] [id number] [place] [address]- 8191 May, [facility] [place] [facility] [address] [facility] [id number] [place] [address]- 0242 May, [facility] [place] [facility] [address] [facility] [id number] [place] [address]- 3407 May, 2014 [facility] [place] [facility] [address] [facility] [id number], [place] [address]- 2843 May, 2014 [facility] [place] [facility] [address] [facility] [id number], [place] [address]- 8167 May, 2014 [facility] [place] [facility] [address] [facility] [id number], [place] [address]- 9895 May, 2014 [facility] [place] [facility] [address] [facility] [id number], [place] [address]- 8011 May, 2014 [facility] [place] [facility] [address] [facility] [id number] [place] [address]- 9702 May, 2014 [facility] [place] [facility] [address] [facility] [id number] [place] [address]- 7631 May, 2014 [facility] [place] [facility] [address] [facility] [id number] [place] [address]- 4417 May, 2014 [facility] [place] [facility] [address] [id number], [place] [address]- 5210 May, [facility] [address] [facility] [id number] [id number] Apr, [facility] [address], [place] [address]- 0475 Apr, [facility] [address] [id number], [place] [id number] Nov, [facility] [id number] [place] [address] [id number] Apr, [facility] [address] [id number][place] [id number] Apr, [facility] [address], [place] [address]- 9709 Jan, [facility] [address], [place] [address]- 2498 Jan, [facility] [address] [id number], [place] [id number] Jan, [facility] [address] [id number][place] [id number] Dec, [facility] [address] [id number], [place] [id number] Nov, [facility] [address] [facility] [id number][place] [id number] Oct, [facility] [place] [facility] [address] [facility] [id number], [place] [address] Mar, [facility] [id number], [place] [address] Mar, [facility], [place] [address] [facility] [id number] [place] [address] Mar, [facility], [place] [address] [facility] [id number][place] [address] Sep, [facility], [place] [address] [facility] [id number], [place] [address] May, [facility], [place] [address] [facility] [id number][place] [address] Mar, [facility], [place] [address] [facility] [id number][place] [address] May, IMMUNIZATIONS No Known Immunizations SOCIAL HISTORY Never Assessed REASON FOR VISIT woke up this am, stating that she "felt weird". She had had gestational diabetes 2-3 years ago, so she checked her blood sugar at 7:45 am and it was 78. She thought this was to low, so she ate several pieces of candy. Checked it again at 9 am and it was 141. Still does feel good. Also wanting more contour testing strips. keo Bernardo PLAN OF CARE Activity Details Follow Up 1-2 weeks to [facility] Reason: VITAL SIGNS Height 61 in 2017-09-04 Weight 277.4 lbs 2017-09-04 Temperature 98.2 degrees Fahrenheit 2017-09-04 Heart Rate 86 bpm 2017-09-04 Respiratory Rate 16 2017-09-04 BMI 52.41 kg/m2 2017-09-04 Blood pressure systolic 132 mmHg 2017-09-04 Blood pressure diastolic 80 mmHg 2017-09-04 MEDICATIONS Unknown Medications RESULTS No Results PROCEDURES Procedure Date Ordered Result Body Site URINALYSIS, AUTO, W/O SCOPE September 04, 2017 Hemoglobin Test Send Out 0 dollar September 04, 2017 URINE CULTURE/COLONY COUNT September 04, 2017 VENIPUNCT, ROUTINE* September 04, 2017 LIPID PANEL September 04, 2017 COMPLETE CBC W/AUTO DIFF WBC September 04, 2017 COMPREHEN METABOLIC PANEL September 04, 2017 ASSAY THYROID STIM HORMONE September 04, 2017 INSTRUCTIONS MEDICATIONS ADMINISTERED No Known Medications MEDICAL (GENERAL) HISTORY Type Description Date Medical History hx of Gestational DM Surgical History tubal ligation Surgical History Kidney stones 2007 Hospitalization History child Hospitalization History flu with tiago Ackerman Jinny
--- OUTSIDE RECORDS SUMMARY | 2018-07-11 11:37 | XMS REPORT ---
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 Active 579964523 Problem Morbid (severe) obesity due to excess calories E66.01 Active 62241581510471 Problem Polydipsia R63.1 Active 92847127 Problem Body mass index (BMI) of 50-59.9 in adult Z68.43 Active 527398251 Problem Other obesity due to excess calories E66.09 Active 05350963200131 Problem Polyphagia R63.2 Active 931983091 Problem History of gestational diabetes Z86.32 Active 270361589 ALLERGIES Substance Reaction Event Type Date Status Clindamycin HCl hives Drug Allergy Jun, Active ENCOUNTERS Encounter Location Date Diagnosis [address] [id number] [id number] August, Low sodium levels E87.1 and Lipid screening Z13.220 [facility] [address] [id number] [address] August, Polydipsia R63.1 ; History of gestational diabetes Z86.32 ; Morbid (severe ) obesity due to excess calories E66.01 ; Body mass index (BMI) of 50-59.9 in adult Z68.43 ; Polyphagia R63.2 ; Frequent urination R35.0 and BMI 50.0-59.9, adult Z68.43 [facility] [address] [id number] [id number] Jun, Strep throat J02.0 and Cough R05 [facility] [address] [id number], [place] [address] 07 May, 2018 BMI 50.0-59.9, adult Z68.43 ; Sore throat J02.9 and Strep throat J02.0 [facility] [address] [id number] [address] 24 Jan, 2017 Well woman exam with routine gynecological exam Z01.419 ; Screening breast examination Z12.31 ; High risk sexual behavior Z72.51 ; Other obesity due to excess calories E66.09 ; Body mass index (BMI) of 50-59.9 in adult Z68.43 ; Tobacco abuse Z72.0 and Tobacco abuse counseling Z71.6 [facility] [address] [place] [address]60 -0419 May, Sore throat J02.9 [id number] [place] [address] 10051- 9014 May, [place] [id number] [place] [address] 04376- 6229 Feb, [facility] [id number] [place] [address] 37828- 7704 Jun, [place] [id number] [place] [address] 15626- 1722 Apr, Ankle pain, left M25.572 [facility] [place] [id number] [place] [address] 23391 -0673 Apr, [facility] [address] [place] [address] 23134 -0370 Apr, Ankle pain, left M25.572 [place] [address] 8[address]72- 1197 Dec, ASCUS with positive high risk HPV cervical 795.01 [place] [id number] [place] [address] 76762- 2419 16 Dec, 2014 Gestational diabetes mellitus, delivered 648.81 [place] [id number] [place] [address] 30914- 4250 14 Dec, 2014 Routine follow-up V24.2 ; General counselling and advice on contraception V25.09 and Gestational diabetes mellitus, delivered 648.81 [place] [id number] [place] [address] 66043- 2545 Nov, Oligohydramnios in second trimester 658.03 ; Rupture, membranes, premature 658.10 ; Gestational diabetes 648.80 and Supervision of high-risk of elderly multigravida V23.82 [place] [id number] [place] [address] 10725- 9346 Oct, Supervision of high-risk of elderly multigravida V23.82 and premature rupture of membranes (PPROM) with unknown onset of labor 658.10 [place] [id number] [place] [address] 40803- 0643 Oct, Supervision of high-risk of elderly multigravida V23.82 and premature rupture of membranes (PPROM) with unknown onset of labor 658.10 [place] [id number] [place] [address] 93679- 6242 Oct, Supervision of high-risk of elderly multigravida V23.82 ; TDAP DX V06.1 ; Oligohydramnios in second trimester 658.03 ; premature rupture of membranes (PPROM) with unknown onset of labor 658.10 and Gestational diabetes 648.80 [place] [address] [place] [address] 82086- 0626 Oct, Oligohydramnios in second trimester 658.03 ; premature rupture of membranes (PPROM) with unknown onset of labor 658.10 ; Supervision of high-risk of elderly multigravida V23.82 and Gestational diabetes 648.80 [place] [id number] [place] [address] 44913- 1758 Sep, [place] [address] 18661- 0172 Sep, Abnormal glucose tolerance in 648.80 [facility] [address] [place] [address] 10074- 1300 Sep, Oligohydramnios in second trimester 658.03 ; Rupture, membranes, premature 658.10 and Supervision of high-risk of elderly multigravida V23.82 [facility] [address] [place] [address] 42971- 1194 Sep, [facility] [id number] [place] [address] 51408- 8504 Sep, [facility] [id number] [place] [address] 51244- 5011 Sep, [facility] [id number] [place] [address] 78735- 4983 Sep, [facility] [id number] [place] [address] 42380- 6412 Sep, Supervision of high-risk of elderly multigravida V23.82 ; Oligohydramnios in second trimester 658.03 and premature rupture of membranes (PPROM) with unknown onset of labor 658.10 [facility] [address] [place] [address] 96756- 0967 August, Supervision of high-risk of elderly multigravida V23.82 [facility] [address], [place] [address] Jul, [facility] [address] [place] [address] 00593- 7976 Jul, [facility] [id number] [place] [address] 590456- 9212 Jun, [facility] [address], [place] [address] 7[address] Jun, [facility] [id number] [place] [address] 91650- 3519 Jun, [facility] [place] [facility] [address] [id number] [place] [address]- 9926 Jun, [facility] [place] [facility] [address] [id number] [place] [address]- 2322 Jun, [facility] [place] [facility] [address] [id number] [place] [address]- 9530 Jun, [facility] [place] [facility] [address] [id number] [place] [address]- 2030 Jun, [facility] [place] [facility] [address] [id number] [place] [address]- 4548 Jun, [facility] [place] [facility] [address] [id number] [place] [address]- 8236 Jun, [facility] [place] [facility] [address] [facility] [id number] [place] [address]- 5110 May, [facility] [place] [facility] [address] [id number] [place] [address]- 7896 May, [facility] [place] [facility] [address] [id number] [place] [address]- 8022 May, [facility] [place] [facility] [address] [facility] [id number] [place] [address]- 6993 May, [facility] [place] [facility] [address] [facility] [id number] [place] [address]- 2255 May, 2014 [facility] [place] [facility] [address] [id number] [place] [address]- 2971 May, 2014 [facility] [place] [facility] [address] [id number] [place] [address]- 8069 May, 2014 [facility] [place] [facility] [address] [facility] [id number] [place] [address]- 7317 May, 2014 [facility] [place] [facility] [address] [facility] [id number] [place] 9413 May, 2014 [facility] [place] [facility] [address] [facility] [id number], [place] [address]- 8246 May, 2014 [facility] [place] [facility] [address] [facility] [id number] [place] [address]- 6416 May, 2014 [facility] [place] [facility] [address] [facility] [id number] [place] [address]- 7890 May, 2014 [facility] [place] [facility] [address] [facility] [id number] [place] [address]- 6935 May, 2014 [facility] [address] [id number] [address] Apr, [facility] [address] [facility] [id number] [place] [address]- 9686 Apr, [facility] [address] [id number][place] [address] Nov, [facility] [address] [id number][place] [address] Apr, [facility] [address] [id number][place] [address] Apr, [facility] [address] [facility] [id number], [place] [address]- 4746 Jan, [facility] [place] [facility] [address] [facility] [id number], [place] [address]- 2546 Jan, [facility] [address] [id number][place] [address] Jan, [facility] [address] [id number], [place] [address] Dec, [facility] [address] [id number], [place] [id number] Nov, [facility] [address] [id number] [place] [address] Oct, [facility] [place] [facility] [address] [facility] [id number], [place] [address]- 2546 Mar, [facility] [place] [facility] [address] [facility] [id number], [place] [address]- 8922 Mar, [facility] [address] [facility] [id number][place] [address]- 3366 Mar, [facility] [address] [id number], [place] [address] 2546 Sep, [facility] [address] [facility] [id number], [place] [address] 2546 May, [facility] [address] [facility] [id number], [place] [address] 2546 Mar, [facility] [address] [facility] [id number], [place] [address]- 7996 May, IMMUNIZATIONS No Known Immunizations SOCIAL HISTORY Never Assessed REASON FOR VISIT sore throat, body aches daniella grubbs PLAN OF CARE Activity Details Follow Up prn Reason: VITAL SIGNS Height 61 in 2017-07-01 Weight 284.9 lbs 2017-07-01 Temperature 100.9 degrees Fahrenheit 2017-07-01 Heart Rate 97 bpm 2017-07-01 Respiratory Rate 20 2017-07-01 Oximetry 94 % 2017-07-01 BMI 53.83 kg/m2 2017-07-01 Blood pressure systolic 163 mmHg 2017-07-01 Blood pressure diastolic 79 mmHg 2017-07-01 MEDICATIONS Medication Instructions Dosage Frequency Start Date End Date Duration Status Augmentin 875-125 MG Orally every 12 hrs 1 tablet 12h Jun,Jun 10 day(s) Active PredniSONE 20 mg Orally Once a day 2 tablet 24h Jun, Jun, 05 days Active Amoxicillin 500 MG Orally every 12 hrs 1 capsule 12h 10 day(s) Not- Taking RESULTS Name Result Date Reference Range STREP A (IN HOUSE) STREP A POS Control POS Lot # [id number] Exp date 10/2019 PROCEDURES Procedure Date Ordered Result Body Site STREP A ASSAY W/OPTIC July 01, 2017 INSTRUCTIONS MEDICATIONS ADMINISTERED No Known Medications MEDICAL (GENERAL) HISTORY Type Description Date Medical History hx of Gestational DM Surgical History tubal ligation Surgical History Kidney stones 2006 Hospitalization History child Hospitalization History flu with tiago Ackerman 1992
--- OUTSIDE RECORDS SUMMARY | 2018-07-11 11:37 | XMS REPORT ---
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
--- OUTSIDE RECORDS SUMMARY | 2018-07-11 11:37 | XMS REPORT ---
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 Active 864893501 Problem Morbid (severe) obesity due to excess calories E66.01 Active 91110748745606 Problem Polydipsia R63.1 Active 85016155 Problem Body mass index (BMI) of 50-59.9 in adult Z68.43 Active 416130889 Problem Other obesity due to excess calories E66.09 Active 93128618242143 Problem Polyphagia R63.2 Active 284050176 Problem History of gestational diabetes Z86.32 Active 431546033 ALLERGIES No Information ENCOUNTERS Encounter Location Date Diagnosis [address] [id number] August, Low sodium levels E87.1 and Lipid screening Z13.220 [address] [address] August, Polydipsia R63.1 ; History of gestational diabetes Z86.32 ; Morbid (severe ) obesity due to excess calories E66.01 ; Body mass index (BMI) of 50-59.9 in adult Z68.43 ; Polyphagia R63.2 ; Frequent urination R35.0 and BMI 50.0-59.9, adult Z68.43 [facility] [address] [id number] [id number] Jun, Strep throat J02.0 and Cough R05 [facility] [address] [address] 07 May, 2018 BMI 50.0-59.9, adult Z68.43 ; Sore throat J02.9 and Strep throat J02.0 [facility] [address] [id number] [address] 24 Jan, 2017 Well woman exam with routine gynecological exam Z01.419 ; Screening breast examination Z12.31 ; High risk sexual behavior Z72.51 ; Other obesity due to excess calories E66.09 ; Body mass index (BMI) of 50-59.9 in adult Z68.43 ; Tobacco abuse Z72.0 and Tobacco abuse counseling Z71.[address] [facility] [address] [place] [address] 35227 -6052 May, Sore throat J02.9 [place] [id number] [place] [address] 50452- 4247 May, [facility] [id number] [place] [address] 28526- 9774 Feb, [facility] [id number] [place] [address] 05072- 3385 Jun, [facility] [id number] [place] [address] 47157- 4300 Apr, Ankle pain, left M25.572 [facility] [address] [place] [address] 83861 -8990 Apr, [facility] [id number] [place] [address] 87806 -9698 Apr, Ankle pain, left M25.572 [facility] [id number] [place] [address] 67469- 8917 21 Dec, 2014 ASCUS with positive high risk HPV cervical 795.01 [place] [address] [place] [address] 86449- 4829 16 Dec, 2014 Gestational diabetes mellitus, delivered 648.81 [place] [id number] [place] [address] 41354- 9235 Dec, Routine follow-up V24.2 ; General counselling and advice on contraception V25.09 and Gestational diabetes mellitus, delivered 648.81 [place] [id number] [place] [address] 82094- 3415 Nov, Oligohydramnios in second trimester 658.03 ; Rupture, membranes, premature 658.10 ; Gestational diabetes 648.80 and Supervision of high-risk of elderly multigravida V23.82 [place] [id number] [place] [address] 54590- 5612 Oct, Supervision of high-risk of elderly multigravida V23.82 and premature rupture of membranes (PPROM) with unknown onset of labor 658.10 [id number] [place] [address] 82469- 6150 Oct, Supervision of high-risk of elderly multigravida V23.82 and premature rupture of membranes (PPROM) with unknown onset of labor 658.10 [id number] [place] [address] 15261- 3535 Oct, Supervision of high-risk of elderly multigravida V23.82 ; TDAP DX V06.1 ; Oligohydramnios in second trimester 658.03 ; premature rupture of membranes (PPROM) with unknown onset of labor 658.10 and Gestational diabetes 648.80 [place] [id number] [place] [address] 94687- 8894 Oct, Oligohydramnios in second trimester 658.03 ; premature rupture of membranes (PPROM) with unknown onset of labor 658.10 ; Supervision of high-risk of elderly multigravida V23.82 and Gestational diabetes 648.80 [place] [id number] [place] [address] 01266- 1658 Sep, [address] [address]08- 1731 Sep, Abnormal glucose tolerance in 648.80 [facility] [address] [address]- 4796 Sep, Oligohydramnios in second trimester 658.03 ; Rupture, membranes, premature 658.10 and Supervision of high-risk of elderly multigravida V23.82 [facility] [address] [id number] [address]- 6764 Sep, [facility] [id number] [place] [address] 70228- 5052 Sep, [facility] [id number] [place] [address] 73562- 9187 Sep, [facility] [id number] [place] [address] 37938- 1133 Sep, [facility] [id number] [place] [address] 55947- 1636 Sep, Supervision of high-risk of elderly multigravida V23.82 ; Oligohydramnios in second trimester 658.03 and premature rupture of membranes (PPROM) with unknown onset of labor 658.10 [facility] [id number] [place] [address] 15280- 2406 August, Supervision of high-risk of elderly multigravida V23.82 [facility] [address] [address]- 6144 Jul, [facility] [address] [place] [address] 93849- 1464 Jul, [facility] [id number] [place] [address] 83370- 1594 Jun, [facility] [id number] [place] [address] 43014- 1020 Jun, [facility] [address] [id number] [address]- 7710 Jun, [facility] [place] [facility] [address] [id number] [place] [address]- 9953 Jun, [facility] [place] [facility] [address] [id number] [place] [address]- 0119 Jun, [facility] [place] [facility] [address] [id number] [place] [address]- 5686 Jun, [facility] [place] [facility] [address] [id number] [place] [address]- 3132 Jun, [facility] [place] [facility] [address] [id number] [place] [address]- 2231 Jun, [facility] [place] [facility] [address] [id number] [place] [address]- 1251 Jun, [facility] [place] [facility] [address] [id number] [place] [address]- 2684 May, [facility] [place] [facility] [address] [id number] [place] [address]- 3953 May, [facility] [place] [facility] [address] [id number] [place] [address]- 9251 May, [facility] [place] [facility] [address] [facility] [id number] [place] [address]- 1785 May, [facility] [place] [facility] [address] [facility] [id number] [place] [address]- 3192 May, [facility] [place] [facility] [address] [id number] [place] [address]- 8096 May, 2014 [facility] [place] [facility] [address] [id number] [place] [address]- 2547 May, [facility] [place] [facility] [address] [id number] [place] [address]- 3389 May, [facility] [place] [facility] [address] [facility] [id number] [place] 1412 May, 2014 [facility] [place] [facility] [address] [id number] [place] [address]- 9262 May, [facility] [place] [facility] [address] [address]- 9059 May, [facility] [place] [facility] [address] [id number] [address]- 5794 May, [facility] [place] [facility] [address] [address]- 1852 May, [facility] [address] [id number] [address] Apr, [facility] [place] [facility] [address] [address]- 7036 Apr, [facility] [address] [id number] [address] Nov, [facility] [id number] [place] [address] Apr, [facility] [id number] [address] Apr, [facility] [place] [facility] [address] [address]- 2067 Jan, [facility] [place] [facility] [address] [address]- 4754 Jan, [facility] [address] [id number] [place] [address] Jan, [facility] [id number] [place] [address] Dec, [facility] [id number] [place] [address] Nov, [facility] [address] [id number] [place] [address] Oct, [facility] [place] [facility] [address] [id number] [address]- 3818 Mar, [facility] [place] [facility] [id number] [address] Mar, [facility] [address] [id number] [id number] Mar, [facility] [id number] [address] Sep, [facility] [id number] [address] May, [facility] [id number] [address] Mar, [facility] [id number] [address] May, 2008 IMMUNIZATIONS No Known Immunizations SOCIAL HISTORY Never Assessed REASON FOR VISIT phone call PLAN OF CARE VITAL SIGNS MEDICATIONS Unknown Medications RESULTS No Results PROCEDURES No Known procedures INSTRUCTIONS MEDICATIONS ADMINISTERED No Known Medications MEDICAL (GENERAL) HISTORY Type Description Date Medical History hx of Gestational DM Surgical History tubal ligation Surgical History Kidney stones 2006 Hospitalization History child Hospitalization History flu with tiago Ackerman 1992
--- OUTSIDE RECORDS SUMMARY | 2018-07-11 11:37 | XMS REPORT ---
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 Active 410276439 ALLERGIES Substance Reaction Event Type Date Status Clindamycin HCl hives Drug Allergy May, Active SOCIAL HISTORY Never Assessed PLAN OF CARE VITAL SIGNS Height 61 in 2016-06-13 Weight 275.2 lbs 2016-06-13 Temperature 97.6 degrees Fahrenheit 2016-06-13 Heart Rate 96 bpm 2016-06-13 Respiratory Rate 20 2016-06-13 BMI 51.99 kg/m2 2016-06-13 Blood pressure systolic 120 mmHg 2016-06-13 Blood pressure diastolic 60 mmHg 2016-06-13 MEDICATIONS Medication Instructions Dosage Frequency Start Date End Date Duration Status Amoxicillin 500 mg Orally 3 times a day 1 capsule 8h May, Jun, 10 day(s) Active RESULTS Name Result Date Reference Range STREP A (IN HOUSE) 2016-06-13 STREP A positive Control + Lot # [id number] Exp date [id number] PROCEDURES Procedure Date Ordered Result Body Site STREP A ASSAY W/OPTIC Jun 13, 2016 IMMUNIZATIONS No Known Immunizations MEDICAL (GENERAL) HISTORY Type Description Date Medical History hx of Gestational DM Surgical History tubal ligation Surgical History Kidney stones 2006 Hospitalization History child Hospitalization History flu with tiago Ackerman 1992
--- OUTSIDE RECORDS SUMMARY | 2018-07-11 11:37 | XMS REPORT ---
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
--- OUTSIDE RECORDS SUMMARY | 2018-07-11 11:37 | XMS REPORT ---
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
--- OUTSIDE RECORDS SUMMARY | 2018-07-11 11:38 | XMS REPORT ---
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
--- NOTE | 2018-07-11 11:45 | NUR ---
Sammy Bradford] admitted to room 409-1, with an admitting diagnosis of diverticulitis, on 07/11/18 from ED via wheelchair, accompanied by staff .SAMMY BRADFORD introduced to surroundings, call light, bed controls, phone, TV, temperature control, lights, meal times, smoking policy, visitor policy, side rail policy, bathrooms and showers. Patient Rights given to patient in the handbook. SAMMY BRADFORD verbalizes understanding that [facility] is not responsible for the loss or damage to any personal effects or valuables that are kept in the patients possession during their hospitalization. The following Patient Care Plans were discussed with the : Discharge Planning, medications, pain management, and dehydration. SAMMY BRADFORD verbalizes understanding of Interdisciplinary Patient Education. Patient and/or family were informed about the Rapid Response Team and its purpose.
[2018-07-11 11:54] VITALS: BP 98/70
[2018-07-11] MEDS ORDERED: fentaNYL INJECTION 100 MCG/2 ML AMP IV PRN (12:30)
[2018-07-11] MEDS ORDERED: CATHETER FLUSH 10 ML SYR IV PRN (12:30)
[2018-07-11] MEDS ORDERED: KETOROLAC 15 MG/ML VIAL IV PRN (12:30)
[2018-07-11] MEDS: LACTATED RINGERS 1,000 ML IV SCH ×2 (12:35→18:52)
[2018-07-11] MEDS: fentaNYL INJECTION 100 MCG/2 ML AMP IV PRN ×2 (14:31→19:52)
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
[2018-07-11 15:20] VITALS: BP 125/79
[2018-07-11] MEDS: PIPERACILLIN/TAZO 4.5 GM/NS 100 ML IV SCH ×2 (16:46)
[2018-07-11 19:28] VITALS: BP 123/57
[2018-07-11] MEDS ORDERED: ACETAMINOPHEN 325 MG TABLET ONE (19:48)
[2018-07-11] MEDS: ACETAMINOPHEN 325 MG TABLET PO PRN (19:52)
[2018-07-12] VITALS (7 sets, daily range): BP systolic 111–136; BP diastolic 55–83
[2018-07-12] MEDS: PIPERACILLIN/TAZO 4.5 GM/NS 100 ML IV SCH ×6 (00:24→16:09)
[2018-07-12] MEDS: LACTATED RINGERS 1,000 ML IV SCH ×4 (01:21→20:37)
[2018-07-12] MEDS: fentaNYL INJECTION 100 MCG/2 ML AMP IV PRN ×4 (04:33→19:50)
--- NOTE | 2018-07-12 04:49 | NUR ---
pt removed her ring, placed it in her wallet, & requested the items be locked up the financial compliance manager her room.
[2018-07-12 06:19] LABS: BASOPHILS % (AUTO) 0 % (0-10); EOSINOPHILS % (AUTO) 0 % (0-10); HEMATOCRIT 32 % (35-52); HEMOGLOBIN 9.9 G/DL (11.5-16.0); LYMPHOCYTES # (AUTO) 2.2 X 10^3 (1.0-4.0); LYMPHOCYTES % (AUTO) 10 % (12-44); MEAN CORPUSCULAR HEMOGLOBIN 27 PG (25-34); MEAN CORPUSCULAR HGB CONC 31 G/DL (32-36); MEAN CORPUSCULAR VOLUME 86 FL (80-99); MEAN PLATELET VOLUME 9.8 FL (7.4-10.4); MONOCYTES % (AUTO) 9 % (0-12); NEUTROPHILS # (AUTO) 17.8 X 10^3 (1.8-7.8); NEUTROPHILS % (AUTO) 81 % (42-75); PLATELET COUNT 301 10^3/uL (130-400); RED CELL DISTRIBUTION WIDTH 14.7 % (10.0-14.5); WHITE BLOOD COUNT 22.1 10^3/uL (4.3-11.0)
[2018-07-12 06:39] LABS: BUN/CREATININE RATIO 8; CALCIUM 8.7 MG/DL (8.5-10.1); CARBON DIOXIDE 23 MMOL/L (21-32); CHLORIDE 104 MMOL/L (98-107); CREATININE SERUM 0.61 MG/DL (0.60-1.30); GFR ESTIMATED > 60; GLUCOSE 107 MG/DL (70-105); POTASSIUM 3.8 MMOL/L (3.6-5.0); SODIUM 135 MMOL/L (135-145)
[2018-07-12] MEDS: ACETAMINOPHEN 325 MG TABLET PO PRN ×2 (07:51→14:50)
--- NOTE | 2018-07-12 11:02 | Progress Note (SOAP) ---
Subjective Date Seen by a Provider: Jul 12, 2018 Time Seen by a Provider: 09:10 Subjective/Events-last exam patient reports pain over the left lower quadrant of the abdomen. Temperature zeke to 10 1F last night, currently afebrile. Review of Systems General: Chills HEENT: No Head Aches, No Eye Pain, No Ear Pain, No Dysphasia, No Sinus Congestion, No Post Nasal Drip, No Sore Throat Pulmonary: No Dyspnea, No Cough, No Pleuritic Chest Pain Cardiovascular: No: Chest Pain, Palpitations, Orthopnea, Paroxysmal Noc. Dyspnea, Edema, Lt Headedness Gastrointestinal: Abdominal Pain Genitourinary: Frequency Musculoskeletal: No: other, neck pain, shoulder pain, arm pain, back pain, hand pain, leg pain, foot pain Neurological: No: Weakness, Numbness, Incoordination, Change in speech, Confusion, Seizures, Other Focused Exam Lactate Level 07/11/18 08:45: Lactic Acid Level 1.46 Objective Exam Vital Signs Date Time Temp Pulse Resp B/P (MAP) Pulse Ox O2 Delivery O2 Flow Rate FiO2 07/12/18 08:00 101.4 100 20 136/83 (100) 95 Room Air 07/12/18 04:48 100.1 104 20 113/62 (79) 93 Room Air 07/12/18 00:41 98.6 94 20 111/55 (73) 92 Room Air 07/11/18 20:30 100.0 07/11/18 20:00 Room Air 07/11/18 19:52 101.0 07/11/18 19:28 101.8 112 18 123/57 (79) 94 Room Air 07/11/18 15:20 102.0 112 18 125/79 (94) 95 Room Air 07/11/18 11:54 98.2 103 18 98/70 (79) 93 Room Air 07/11/18 11:45 93 Room Air 07/11/18 11:26 98.1 91 18 125/67 (86) 96 I & O 07/12/18 07:00 Intake Total 4280 ml Balance 4280 ml Capillary Refill : Less Than 3 Seconds General Appearance: No Apparent Distress Neck: Normal Inspection Respiratory: Lungs Clear Cardiovascular: Regular Rate, Rhythm Gastrointestinal: tenderness Extremity: Normal Inspection Neurologic/Psychiatric: Alert, Oriented x3 Skin: Warm/Dry Other comments tenderness over the left lower quadrant. Results Lab Laboratory Tests 07/12/18 05:43: White Blood Count 22.1H, Red Blood Count 3.69L, Hemoglobin 9.9L, Hematocrit 32L , Mean Corpuscular Volume 86, Mean Corpuscular Hemoglobin 27, Mean Corpuscular Hemoglobin Concent 31L, Red Cell Distribution Width 14.7H, Platelet Count 301, Mean Platelet Volume 9.8, Neutrophils (%) (Auto) 81H, Lymphocytes (%) (Auto) 10L , Monocytes (%) (Auto) 9, Eosinophils (%) (Auto) 0, Basophils (%) (Auto) 0, Neutrophils # (Auto) 17.8H, Lymphocytes # (Auto) 2.2, Monocytes # (Auto) 2.0H, Eosinophils # (Auto) 0.0, Basophils # (Auto) 0.0, Sodium Level 135, Potassium Level 3.8, Chloride Level 104, Carbon Dioxide Level 23, Anion Gap 8, Blood Urea Nitrogen 5L, Creatinine 0.61, Estimat Glomerular Filtration Rate > 60, BUN/ Creatinine Ratio 8, Glucose Level 107H, Calcium Level 8.7 Assessment/Plan Assessment/Plan Assess & Plan/Chief Complaint lady with possible pericolic abscess. White cell count decreasing. CT will be repeated with rectal and IV contrast on Saturday Final Diagnosis pericolic abscess Clinical Quality Measures Admission Status Admission Dx Lady with leucocytosis and possibly a pericolic abscess in evolution. Will continue IV antibiotis and repeat CT with rectal and IV contrast following the weekend. DVT/VTE Risk/Contraindication: Risk Factor Score Per Nursin RFS Level Per Nursing on Admit: 4+=Very High EDNA WILLIAM MD Jul 12, 2018 11:02
--- NOTE | 2018-07-12 20:10 | NUR ---
PT TEMP 102.1. NOTIFIED AND NEW ORDERS RECEIVED
[2018-07-12] MEDS: IBUPROFEN TABLET 200 MG TAB PO PRN (20:34)
[2018-07-13] MEDS: PIPERACILLIN/TAZO 4.5 GM/NS 100 ML IV SCH ×8 (00:12→23:56)
[2018-07-13] MEDS: LACTATED RINGERS 1,000 ML IV SCH ×4 (02:50→20:45)
[2018-07-13] MEDS: fentaNYL INJECTION 100 MCG/2 ML AMP IV PRN ×8 (02:50→21:03)
[2018-07-13 04:20] VITALS: BP 125/83
[2018-07-13 08:00] VITALS: BP 139/79
[2018-07-13] MEDS: ACETAMINOPHEN 325 MG TABLET PO PRN ×3 (08:08→23:56)
[2018-07-13 11:13] LABS: BASOPHILS % (AUTO) 0 % (0-10); EOSINOPHILS # (AUTO) 0.1 10^3/uL (0.0-0.3); EOSINOPHILS % (AUTO) 0 % (0-10); HEMATOCRIT 28 % (35-52); HEMOGLOBIN 8.8 G/DL (11.5-16.0); LYMPHOCYTES # (AUTO) 2.4 X 10^3 (1.0-4.0); LYMPHOCYTES % (AUTO) 11 % (12-44); MEAN CORPUSCULAR HEMOGLOBIN 27 PG (25-34); MEAN CORPUSCULAR HGB CONC 31 G/DL (32-36); MEAN CORPUSCULAR VOLUME 86 FL (80-99); MEAN PLATELET VOLUME 9.6 FL (7.4-10.4); MONOCYTES # (AUTO) 1.7 X 10^3 (0.0-1.0); MONOCYTES % (AUTO) 8 % (0-12); NEUTROPHILS # (AUTO) 17.7 X 10^3 (1.8-7.8); NEUTROPHILS % (AUTO) 81 % (42-75); PLATELET COUNT 291 10^3/uL (130-400); RED CELL DISTRIBUTION WIDTH 14.8 % (10.0-14.5); WHITE BLOOD COUNT 21.9 10^3/uL (4.3-11.0)
[2018-07-13 12:00] VITALS: BP 144/73
--- NOTE | 2018-07-13 12:16 | Progress Note (SOAP) ---
Subjective Date Seen by a Provider: Jul 13, 2018 Time Seen by a Provider: 10:40 Subjective/Events-last exam Temperature spike to 101 overnight. Patient reports decreased abdominal pain. Having liquid bowel movements. Review of Systems General: No Chills, No Night Sweats, No Fatigue, No Malaise HEENT: No Head Aches, No Eye Pain, No Ear Pain, No Dysphasia, No Sinus Congestion, No Post Nasal Drip, No Sore Throat Pulmonary: No Dyspnea, No Cough, No Pleuritic Chest Pain Cardiovascular: No: Chest Pain, Palpitations, Orthopnea, Paroxysmal Noc. Dyspnea, Edema, Lt Headedness Gastrointestinal: No: Nausea, Vomiting, Abdominal Pain, Diarrhea, Constipation , Melena, Hematochezia Genitourinary: No Dysuria, No Frequency, No Incontinence, No Hematuria, No Retention Musculoskeletal: No: other, neck pain, shoulder pain, arm pain, back pain, hand pain, leg pain, foot pain Neurological: No: Weakness, Numbness, Incoordination, Change in speech, Confusion, Seizures, Other Focused Exam Lactate Level 07/11/18 08:45: Lactic Acid Level 1.46 Objective Exam Vital Signs Date Time Temp Pulse Resp B/P (MAP) Pulse Ox O2 Delivery O2 Flow Rate FiO2 07/13/18 08:08 101.4 07/13/18 08:00 101.4 100 18 139/79 (99) 96 Room Air 07/13/18 08:00 Room Air 07/13/18 04:20 99.2 99 18 125/83 (97) 95 Room Air 07/12/18 23:03 99.6 99 18 120/55 (76) 97 Room Air 07/12/18 22:42 100.0 07/12/18 21:10 101.6 07/12/18 20:34 102.1 07/12/18 20:00 Room Air 07/12/18 19:12 101.0 101 18 130/65 (86) 95 Room Air 07/12/18 15:57 100.6 106 20 133/61 (85) 93 Room Air 07/12/18 15:20 100.2 07/12/18 14:52 102.6 07/12/18 14:50 102.6 I & O 07/13/18 07:00 Intake Total 2214 ml Balance 2214 ml Capillary Refill : Less Than 3 Seconds General Appearance: No Apparent Distress HEENT: Normal ENT Inspection Neck: Normal Inspection Respiratory: Lungs Clear Cardiovascular: Regular Rate, Rhythm Gastrointestinal: tenderness Extremity: Normal Inspection Neurologic/Psychiatric: Alert, Oriented x3 Skin: Warm/Dry Other comments mild tenderness over the left lower quadrant Results Lab Laboratory Tests 07/13/18 10:52: White Blood Count 21.9H, Red Blood Count 3.26L, Hemoglobin 8.8L, Hematocrit 28L , Mean Corpuscular Volume 86, Mean Corpuscular Hemoglobin 27, Mean Corpuscular Hemoglobin Concent 31L, Red Cell Distribution Width 14.8H, Platelet Count 291, Mean Platelet Volume 9.6, Neutrophils (%) (Auto) 81H, Lymphocytes (%) (Auto) 11L , Monocytes (%) (Auto) 8, Eosinophils (%) (Auto) 0, Basophils (%) (Auto) 0, Neutrophils # (Auto) 17.7H, Lymphocytes # (Auto) 2.4, Monocytes # (Auto) 1.7H, Eosinophils # (Auto) 0.1, Basophils # (Auto) 0.0 Microbiology 07/11/18 Blood Culture - Preliminary, Resulted Coryneform bacteria See Comments 07/11/18 Urine Culture - Final, Complete 3 or more isolates Assessment/Plan Assessment/Plan Assess & Plan/Chief Complaint lady with possible pericolic abscess. White cell count decreasing. CT will be repeated with rectal and IV contrast on Saturday lady with pericolic abscess. Repeat CT scan pending. If a drainable abscess encountered, CT-guided percutaneous drainage would be arranged. Final Diagnosis pericolic abscess Clinical Quality Measures Admission Status Admission Dx Lady with leucocytosis and possibly a pericolic abscess in evolution. Will continue IV antibiotis and repeat CT with rectal and IV contrast following the weekend. DVT/VTE Risk/Contraindication: Risk Factor Score Per Nursin RFS Level Per Nursing on Admit: 4+=Very High EDNA WILLIAM MD Jul 13, 2018 12:16
--- NOTE | 2018-07-13 14:26 | Diagnostic Imaging Report ---
PROCEDURE: CT abdomen and pelvis with contrast. TECHNIQUE: Multiple contiguous axial images were obtained through the abdomen and pelvis after administration of intravenous contrast. Auto Exposure Controls were utilized during the CT exam to meet ALARA standards for radiation dose reduction. INDICATION: Paracolonic abscess. Pain. CORRELATION STUDY: 07/11/2018 FINDINGS: Marked inflammatory change of left lower quadrant is again demonstrated. This is again inseparable from the sigmoid colon as well as left adnexal structures. The amount of gas and fluid has increased from prior study. More superior component of fluid and gas measuring approximately 7.0 x 5.5 cm, previously measured 4.7 x 3.6 cm. The more anterior and inferior component measuring 5.8 x 5.7 cm. This is inseparable from the fundal aspect of the uterus. There is contrast within the adjacent colon. No definitive filling of this fluid collection with contrast. Calcification of the left adnexal region is present. The remainder of the gastrointestinal tract unremarkable. Lung bases are clear. There is low-attenuation throughout the liver parenchyma suggestive of hepatic steatosis without focal lesion. Gallbladder, spleen, pancreas, gallbladder and adrenal glands unremarkable. Kidneys normal enhancement. No hydronephrosis. There is been the development and/or progression of the central retroperitoneal and scattered mesenteric lymph nodes likely reactive. Apart from the abscess in the left lower quadrant, no significant free intraperitoneal air. Urinary bladder relatively decompressed. Os structures demonstrate no acute abnormality. IMPRESSION: 1. Marked inflammatory change of the left lower quadrant. The amount of gas and fluid most compatible with abscess formation appears increased in size from prior study. This again noted, blurs inseparably with the sigmoid colon and left adnexal structures. This could reflect ruptured acute diverticulitis. Tubo-ovarian abscess does definitely remain in the differential at this time. Dictated by: Dictated on workstation # [id number]
[2018-07-13 16:09] VITALS: BP 135/62
[2018-07-13 19:31] VITALS: BP 137/76
[2018-07-13] MEDS: ONDANSETRON 4 MG/2 ML (SDV) Z0FRAN IV PRN (19:55)
[2018-07-13] MEDS: IBUPROFEN TABLET 200 MG TAB PO PRN (19:56)
[2018-07-13 23:15] VITALS: BP 134/65
[2018-07-14] VITALS (11 sets, daily range): BP systolic 107–179; BP diastolic 59–100
[2018-07-14] MEDS: LACTATED RINGERS 1,000 ML IV SCH ×4 (03:10→22:28)
[2018-07-14] MEDS: fentaNYL INJECTION 100 MCG/2 ML AMP IV PRN ×8 (03:23→21:43)
[2018-07-14] MEDS: ACETAMINOPHEN 325 MG TABLET PO PRN (08:21)
[2018-07-14] MEDS: PIPERACILLIN/TAZO 4.5 GM/NS 100 ML IV SCH ×6 (08:22→23:46)
[2018-07-14] MEDS: ONDANSETRON 4 MG/2 ML (SDV) Z0FRAN IV PRN ×2 (08:35→14:08)
[2018-07-14 08:59] LABS: BASOPHILS % (AUTO) 0 % (0-10); EOSINOPHILS # (AUTO) 0.1 10^3/uL (0.0-0.3); EOSINOPHILS % (AUTO) 0 % (0-10); HEMATOCRIT 30 % (35-52); HEMOGLOBIN 9.2 G/DL (11.5-16.0); LYMPHOCYTES # (AUTO) 1.9 X 10^3 (1.0-4.0); LYMPHOCYTES % (AUTO) 8 % (12-44); MEAN CORPUSCULAR HEMOGLOBIN 27 PG (25-34); MEAN CORPUSCULAR HGB CONC 31 G/DL (32-36); MEAN CORPUSCULAR VOLUME 86 FL (80-99); MEAN PLATELET VOLUME 9.3 FL (7.4-10.4); MONOCYTES % (AUTO) 9 % (0-12); NEUTROPHILS # (AUTO) 19.1 X 10^3 (1.8-7.8); NEUTROPHILS % (AUTO) 83 % (42-75); PLATELET COUNT 307 10^3/uL (130-400); RED CELL DISTRIBUTION WIDTH 14.7 % (10.0-14.5); WHITE BLOOD COUNT 23.1 10^3/uL (4.3-11.0)
[2018-07-14] MEDS ORDERED: MIDAZOLAM 2 MG/2 ML (VERSED) VIAL IVP ONE (09:00)
[2018-07-14] MEDS ORDERED: fentaNYL INJECTION 100 MCG/2 ML AMP IVP ONE (09:00)
[2018-07-14] MEDS ORDERED: LIDOCAINE 1% INJ 20 ML 20 ML VIAL INJ ONE (09:00)
[2018-07-14 09:24] LABS: INR 1.3 (0.8-1.4); PROTHROMBIN TIME PATIENT 16.5 SEC (12.2-14.7)
--- NOTE | 2018-07-14 11:15 | NUR ---
Patient off floor at this time to CT.
--- NOTE | 2018-07-14 12:04 | Pre-Op Note & Conscious Sedat ---
Pre-Operative Progress Note H&P Reviewed The H&P was reviewed, patient examined and no changes noted. Date H&P Reviewed: Jul 14, 2018 Time H&P Reviewed: 10:00 Pre-Op Diagnosis: abdominal abscess Conscious Sedation Pre-Proced Time 10:00 ASA Score 2 For ASA 3 and 4: Consider anesthesia and medical clearance. Also, for patients with a history of failed moderate sedation consider anesthesia. Airway Lungs Heart ASA score ASA 1: a normal healthy patient ASA 2: a patient with a mild systemic disease (mid diabetes, controlled hypertension, obesity ASA 3: a patient with a severe systemic disease that limits activity (angina , COPD, prior Myocardial infarction) ASA 4: a patient with an incapacitating disease that is a constant threat to life (CHF, renal failure) ASA 5: a moribund patient not expected to survive 24 hrs. (ruptured aneurysm) ASA 6: a declared brain- patient whose organs are being harvested. For emergent operations, add the letter E after the classification Mallampati Classification Grade 2 Sedation Plan Analgesia, Amnesia, Plan communicated to team members, Discussed options with patient/fam, Discussed risks with patient/fam The patient is an appropriate candidate to undergo the planned procedure, sedation, and anesthesia. The patient immediately re-assessed prior to indication. EDITA CHANDRA MD Jul 14, 2018 12:04
--- NOTE | 2018-07-14 12:10 | NUR ---
Patient returned from CT, report received from Kayleen MAGALLANES. Drainage tube present with purulent drainage, op site covering on L lower abdomen.
[2018-07-14] MEDS ORDERED: PHEN-827 PO (12:16)
--- NOTE | 2018-07-14 12:16 | NUR ---
SPOKE WITH THE PATIENT ABOUT HER MEDICATIONS. SHE STATES SHE WAS ON MACROBID AND PYRIDIUM WHEN SHE WAS ADMITTED BUT SHE NORMALLY DOES NOT TAKE ANY MEDICATION ON A REGULAR BASIS. [facility] FILLED: 07-07-18 MACROBID 100MG BID X 7 DAYS 07-07-18 PYRIDIUM 200MG TID 06-30-18 AMOXIL 500MG Q12H X 10 DAYS (FINISHED)
--- NOTE | 2018-07-14 12:44 | Progress Note (SOAP) ---
Subjective Date Seen by a Provider: Jul 14, 2018 Time Seen by a Provider: 12:42 Subjective/Events-last exam temperature spikes. Pericolic abscess drained percutaneously under CT guidance by the radiologist. Patient reasonably comfortable. Review of Systems General: Chills HEENT: No Head Aches, No Eye Pain, No Ear Pain, No Dysphasia, No Sinus Congestion, No Post Nasal Drip, No Sore Throat Pulmonary: No Dyspnea, No Cough, No Pleuritic Chest Pain Cardiovascular: No: Chest Pain, Palpitations, Orthopnea, Paroxysmal Noc. Dyspnea, Edema, Lt Headedness Gastrointestinal: Abdominal Pain Genitourinary: No Dysuria, No Frequency, No Incontinence, No Hematuria, No Retention Musculoskeletal: No: other, neck pain, shoulder pain, arm pain, back pain, hand pain, leg pain, foot pain Neurological: No: Weakness, Numbness, Incoordination, Change in speech, Confusion, Seizures, Other Objective Exam Vital Signs Date Time Temp Pulse Resp B/P (MAP) Pulse Ox O2 Delivery O2 Flow Rate FiO2 07/14/18 11:54 99 12 168/91 96 Nasal Cannula 4.00 07/14/18 11:50 101 16 168/91 94 Nasal Cannula 4.00 07/14/18 11:45 106 17 171/70 96 Nasal Cannula 4.00 07/14/18 11:40 101 15 145/100 97 Nasal Cannula 4.00 07/14/18 11:35 99 21 143/78 97 Nasal Cannula 4.00 07/14/18 11:30 100 27 139/86 95 Nasal Cannula 4.00 07/14/18 08:21 101.4 07/14/18 08:00 Room Air 07/14/18 08:00 101.4 108 18 179/79 (112) 95 Room Air 07/14/18 04:30 97.8 88 20 126/59 (81) 97 Room Air 07/13/18 23:15 98.6 103 18 134/65 (88) 93 Room Air 07/13/18 20:45 100.9 07/13/18 20:00 Room Air 07/13/18 19:56 102.0 07/13/18 19:31 102.1 103 18 137/76 (96) 95 Room Air 07/13/18 16:21 100.8 07/13/18 16:09 100.8 107 16 135/62 (86) 94 Room Air 07/13/18 15:51 101.4 I & O 07/14/18 06:59 Intake Total 2960 ml Balance 2960 ml Capillary Refill : Less Than 3 Seconds General Appearance: Moderate Distress Neck: Normal Inspection Gastrointestinal: soft, tenderness Neurologic/Psychiatric: Alert, Oriented x3 Skin: Warm/Dry Other comments percutaneous drain coming out of the suprapubic region. Local tenderness around this. No evidence of peritonitis. Results Lab Laboratory Tests 07/14/18 08:50: White Blood Count 23.1H, Red Blood Count 3.45L, Hemoglobin 9.2L, Hematocrit 30L , Mean Corpuscular Volume 86, Mean Corpuscular Hemoglobin 27, Mean Corpuscular Hemoglobin Concent 31L, Red Cell Distribution Width 14.7H, Platelet Count 307, Mean Platelet Volume 9.3, Neutrophils (%) (Auto) 83H, Lymphocytes (%) (Auto) 8L , Monocytes (%) (Auto) 9, Eosinophils (%) (Auto) 0, Basophils (%) (Auto) 0, Neutrophils # (Auto) 19.1H, Lymphocytes # (Auto) 1.9, Monocytes # (Auto) 2.0H, Eosinophils # (Auto) 0.1, Basophils # (Auto) 0.0, Prothrombin Time 16.5H, INR Comment 1.3 Microbiology 07/11/18 Blood Culture - Preliminary, Resulted Coryneform bacteria See Comments 07/11/18 Urine Culture - Final, Complete 3 or more isolates Assessment/Plan Assessment/Plan Assess & Plan/Chief Complaint lady with possible pericolic abscess. White cell count decreasing. CT will be repeated with rectal and IV contrast on Saturday lady with pericolic abscess. Repeat CT scan pending. If a drainable abscess encountered, CT-guided percutaneous drainage would be arranged. lady with pericolic abscess, possibly due to diverticular disease. CT guided drainage completed. Will advance diet and continue antibiotics. Final Diagnosis pericolic abscess due to diverticular disease Clinical Quality Measures Admission Status Admission Dx Lady with leucocytosis and possibly a pericolic abscess in evolution. Will continue IV antibiotis and repeat CT with rectal and IV contrast following the weekend. DVT/VTE Risk/Contraindication: Risk Factor Score Per Nursin RFS Level Per Nursing on Admit: 4+=Very High EDAN WILLIAM MD Jul 14, 2018 12:44
--- NOTE | 2018-07-14 13:06 | Diagnostic Imaging Report ---
INDICATION: Abdominal abscess. Patient presents for CT-guided drain placement. TECHNIQUE: Patient was brought to the CT suite, placed on table in the supine position. Axial imaging through the abdomen and pelvis was performed to evaluate appropriate entry site. The procedure was performed utilizing conscious sedation with radiology nursing and constant patient monitoring. The patient was administered a total of 50 mcg of fentanyl intravenously and 1 mg of Versed intravenously. Total procedure time is 10 minutes. FINDINGS: Preliminary images again demonstrate two fluid collections in the midline/left paramidline of the pelvis. The most inferior gas and fluid collection is adjacent to the uterine fundus. Both collections likely communicate with one another. The more inferior component was percutaneously punctured with a Yueh needle. The needle was exchanged over an 0.35 guidewire. Tract was dilated with 6 [place] and 8 [place] dilators. An 8.5 [place] All-Purpose pigtail drain was then advanced over the wire into the fluid collection. Wire was removed. Pigtail was formed. The drainage catheter was placed to Janina drain. Small amount of purulent fluid was aspirated for laboratory analysis. IMPRESSION: Successful CT-guided percutaneous drain placement into the pelvic abscess, utilizing conscious sedation. Patient tolerated the procedure well. Dictated by: Dictated on workstation # [id number]
[2018-07-14] MEDS: HYDROcodone/APAP 5 MG/325 MG (LORTAB) TAB PO PRN ×2 (15:04→23:45)
[2018-07-14] MEDS ORDERED: FLU QUADRIvalent (5+ YOA) 2018-2019 (AFLURIA) 0.5 ML IM ONE (16:45)
[2018-07-14] MEDS: IBUPROFEN TABLET 200 MG TAB PO PRN (23:45)
[2018-07-15] VITALS (7 sets, daily range): BP systolic 69–137; BP diastolic 56–79
[2018-07-15] MEDS: LACTATED RINGERS 1,000 ML IV SCH ×2 (01:52→08:28)
[2018-07-15 06:11] LABS: BASOPHILS % (AUTO) 0 % (0-10); EOSINOPHILS % (AUTO) 0 % (0-10); HEMATOCRIT 30 % (35-52); HEMOGLOBIN 9.2 G/DL (11.5-16.0); LYMPHOCYTES % (AUTO) 16 % (12-44); MEAN CORPUSCULAR HEMOGLOBIN 26 PG (25-34); MEAN CORPUSCULAR HGB CONC 31 G/DL (32-36); MEAN CORPUSCULAR VOLUME 85 FL (80-99); MEAN PLATELET VOLUME 9.7 FL (7.4-10.4); MONOCYTES # (AUTO) 1.4 X 10^3 (0.0-1.0); MONOCYTES % (AUTO) 7 % (0-12); NEUTROPHILS # (AUTO) 14.2 X 10^3 (1.8-7.8); NEUTROPHILS % (AUTO) 76 % (42-75); PLATELET COUNT 334 10^3/uL (130-400); RED CELL DISTRIBUTION WIDTH 14.9 % (10.0-14.5); WHITE BLOOD COUNT 18.6 10^3/uL (4.3-11.0)
[2018-07-15] MEDS: PIPERACILLIN/TAZO 4.5 GM/NS 100 ML IV SCH ×6 (08:01→23:32)
[2018-07-15] MEDS: fentaNYL INJECTION 100 MCG/2 ML AMP IV PRN (08:09)
[2018-07-15] MEDS ORDERED: CATHETER FLUSH 10 ML SYR IV PRN (09:45)
[2018-07-15] MEDS: HYDROcodone/APAP 5 MG/325 MG (LORTAB) TAB PO PRN ×2 (12:10→15:59)
--- NOTE | 2018-07-15 13:07 | Progress Note-Standard ---
Standard Progress Note Progress Notes/Assess & Plan Date Seen by a Provider: Jul 15, 2018 Time Seen by a Provider: 12:15 Progress/Assessment & Plan suprapubic pain much improved. Temperature decreased to 99F. White cell count 18,000. Feculent and purulent output from the drain consistent with diverticular pericolic abscess. Drug sensitivity pending and antibiotics would be tailored accordingly. Education about managing the drain at home would be initiated. Possible discharge on oral antibiotics in 1-2 days. Final Diagnosis pericolic abscess EDNA WILLIAM MD Jul 15, 2018 13:07
[2018-07-15] MEDS: CATHETER FLUSH 10 ML SYR IV SCH ×2 (15:58→20:44)
[2018-07-15] MEDS: IBUPROFEN TABLET 200 MG TAB PO PRN (20:57)
[2018-07-16 00:20] VITALS: BP 102/66
[2018-07-16] MEDS: HYDROcodone/APAP 5 MG/325 MG (LORTAB) TAB PO PRN ×2 (03:58→15:06)
[2018-07-16 04:38] VITALS: BP 120/77
[2018-07-16] MEDS: CATHETER FLUSH 10 ML SYR IV SCH (05:23)
[2018-07-16 08:00] VITALS: BP 125/58
--- NOTE | 2018-07-16 10:44 | Progress Note (SOAP) ---
Subjective Date Seen by a Provider: Jul 16, 2018 Time Seen by a Provider: 10:39 Subjective/Events-last exam Fever and pain improved. Minimal output from the drain. Review of Systems General: Chills HEENT: Head Aches Pulmonary: Dyspnea Cardiovascular: No: Chest Pain, Palpitations, Orthopnea, Paroxysmal Noc. Dyspnea, Edema, Lt Headedness Gastrointestinal: Abdominal Pain Genitourinary: No Dysuria, No Frequency, No Incontinence, No Hematuria, No Retention Musculoskeletal: No: other, neck pain, shoulder pain, arm pain, back pain, hand pain, leg pain, foot pain Neurological: No: Weakness, Numbness, Incoordination, Change in speech, Confusion, Seizures, Other Objective Exam Vital Signs Date Time Temp Pulse Resp B/P (MAP) Pulse Ox O2 Delivery O2 Flow Rate FiO2 07/16/18 08:00 99.0 94 20 125/58 (80) 93 Room Air 07/16/18 04:38 99.1 93 20 120/77 (91) 93 Room Air 07/16/18 00:20 97.2 90 20 102/66 (78) 92 Room Air 07/15/18 21:30 100.0 07/15/18 20:57 100.7 07/15/18 20:00 Room Air 07/15/18 19:21 99.8 99 17 116/78 (91) 93 Room Air 07/15/18 16:30 99.8 07/15/18 16:06 99.1 103 18 69/56 (60) 93 Room Air 07/15/18 15:59 97.8 07/15/18 12:10 97.8 07/15/18 11:25 97.8 93 18 137/63 (87) 94 Room Air I & O 07/16/18 07:00 Intake Total 1700 ml Output Total 75 ml Balance 1625 ml Capillary Refill : Less Than 3 Seconds General Appearance: Anxious Neck: Normal Inspection Gastrointestinal: non tender, soft Neurologic/Psychiatric: Alert, Oriented x3 Skin: Warm/Dry Results Lab Microbiology 07/11/18 Blood Culture - Preliminary, Resulted Coryneform bacteria See Comments 07/11/18 Urine Culture - Final, Complete 3 or more isolates 07/14/18 Gram Stain - Final, Resulted 07/14/18 Anaerobic Culture, Resulted Pending 07/14/18 Surgical Culture - Preliminary, Resulted Usual Fecal Liseth Assessment/Plan Assessment/Plan Assess & Plan/Chief Complaint lady with possible pericolic abscess. White cell count decreasing. CT will be repeated with rectal and IV contrast on Saturday lady with pericolic abscess. Repeat CT scan pending. If a drainable abscess encountered, CT-guided percutaneous drainage would be arranged. lady with pericolic abscess, possibly due to diverticular disease. CT guided drainage completed. Will advance diet and continue antibiotics. Pericolic abscess due to diverticular disease. Could be discharged home today with oral antibiotics and education on J.P care. Her continued care has been transferred to Dr. Lopez consequent upon my departure and I've made her aware of the transition with reassurance that she would continue to receive the appropriate care. I've spoken to Dr. Lopez personally and he's agreed to take over her management. Final Diagnosis Pericolic abscess Clinical Quality Measures Admission Status Admission Dx Lady with leucocytosis and possibly a pericolic abscess in evolution. Will continue IV antibiotis and repeat CT with rectal and IV contrast following the weekend. DVT/VTE Risk/Contraindication: Risk Factor Score Per Nursin RFS Level Per Nursing on Admit: 4+=Very High EDNA WILLIAM MD Jul 16, 2018 10:44
[2018-07-16] MEDS ORDERED: ACHD5005 PO (10:48)
--- NOTE | 2018-07-16 10:48 | Discharge Summary ---
Diagnosis/Chief Complaint Date of Admission Jul 11, 2018 at 11:31 Date of Discharge 07/16/18 Discharge Date: Jul 16, 2018 Discharge Time: 14:00 Admission Diagnosis Admission Diagnosis Phlegmon in the LLQ of abdomen Discharge Diagnosis Pericolic abscess due to diverticular disease of sigmoid colon Reason Hospital Visit Suprapubic pain and fever, preceded by diarrhea of 5 days duration. No contrast CT shows a phlegmon around the sigmoid colon, adjacent to the left ovary. Follow up CT with contrast confirmed a pericolic abscess due to sigmoid diverticular disease. Managed by percutaneous drainage under CT guidance. Symptoms have improved with decrease of fever and leucocytosis. Education on managing the drain at home with documentation of accurate output given. Will f/ u with and be prepared for elective resection (one stage) Discharge Summary Discharge Physical Examination Allergies: Coded Allergies: clindamycin (Unverified Allergy, Unknown, 07/11/18) Vitals & I&Os Vital Signs Date Time Temp Pulse Resp B/P (MAP) Pulse Ox O2 Delivery O2 Flow Rate FiO2 07/16/18 08:00 99.0 94 20 125/58 (80) 93 Room Air 07/14/18 11:54 4.00 Hospital Course Labs (last 24 hrs) Laboratory Tests 07/11/18 08:45: White Blood Count 31.8*H, Red Blood Count 4.50, Hemoglobin 12.1, Hematocrit 37, Mean Corpuscular Volume 83, Mean Corpuscular Hemoglobin 27, Mean Corpuscular Hemoglobin Concent 32, Red Cell Distribution Width 14.8H, Platelet Count 412H, Mean Platelet Volume 9.3, Neutrophils (%) (Auto) 87H, Lymphocytes (%) (Auto) 5L , Monocytes (%) (Auto) 8, Eosinophils (%) (Auto) 0, Basophils (%) (Auto) 0, Neutrophils # (Auto) 27.5H, Lymphocytes # (Auto) 1.7, Monocytes # (Auto) 2.6H, Eosinophils # (Auto) 0.0, Basophils # (Auto) 0.0, Neutrophils % (Manual) 91, Lymphocytes % (Manual) 5, Monocytes % (Manual) 4, Eosinophils % (Manual) 0, Basophils % (Manual) 0, Band Neutrophils 0, Blood Morphology Comment NORMAL, Prothrombin Time 14.0, INR Comment 1.1, Activated Partial Thromboplast Time 37H , Urine Color YELLOW, Urine Clarity CLEAR, Urine pH 7, Urine Specific [place] 1.005L, Urine Protein 2+H, Urine Glucose (UA) NEGATIVE, Urine Ketones 3+H, Urine Nitrite NEGATIVE, Urine Bilirubin NEGATIVE, Urine Urobilinogen NORMAL, Urine Leukocyte Esterase 1+H, Urine RBC (Auto) 5+H, Urine RBC 5-10H, Urine WBC RARE, Urine Squamous Epithelial Cells 2-5, Urine Crystals NONE, Urine Bacteria NEGATIVE, Urine Casts NONE, Urine Mucus NEGATIVE, Urine Culture Indicated CULTURE PENDING, Sodium Level 133L, Potassium Level 3.8, Chloride Level 98, Carbon Dioxide Level 23, Anion Gap 12, Blood Urea Nitrogen 6L, Creatinine 0.75, Estimat Glomerular Filtration Rate > 60, BUN/Creatinine Ratio 8, Glucose Level 162H, Lactic Acid Level 1.46, Calcium Level 9.3, Corrected Calcium 9.5, Total Bilirubin 1.0, Aspartate Amino Transf (AST/SGOT) 12, Alanine Aminotransferase ( ALT/SGPT) 10, Alkaline Phosphatase 81, Total Protein 7.5, Albumin 3.7 07/11/18 11:31: Lab Scanned Report Referred Lab Report 07/12/18 05:43: White Blood Count 22.1H, Red Blood Count 3.69L, Hemoglobin 9.9L, Hematocrit 32L , Mean Corpuscular Volume 86, Mean Corpuscular Hemoglobin 27, Mean Corpuscular Hemoglobin Concent 31L, Red Cell Distribution Width 14.7H, Platelet Count 301, Mean Platelet Volume 9.8, Neutrophils (%) (Auto) 81H, Lymphocytes (%) (Auto) 10L , Monocytes (%) (Auto) 9, Eosinophils (%) (Auto) 0, Basophils (%) (Auto) 0, Neutrophils # (Auto) 17.8H, Lymphocytes # (Auto) 2.2, Monocytes # (Auto) 2.0H, Eosinophils # (Auto) 0.0, Basophils # (Auto) 0.0, Sodium Level 135, Potassium Level 3.8, Chloride Level 104, Carbon Dioxide Level 23, Anion Gap 8, Blood Urea Nitrogen 5L, Creatinine 0.61, Estimat Glomerular Filtration Rate > 60, BUN/ Creatinine Ratio 8, Glucose Level 107H, Calcium Level 8.7 07/13/18 10:52: White Blood Count 21.9H, Red Blood Count 3.26L, Hemoglobin 8.8L, Hematocrit 28L , Mean Corpuscular Volume 86, Mean Corpuscular Hemoglobin 27, Mean Corpuscular Hemoglobin Concent 31L, Red Cell Distribution Width 14.8H, Platelet Count 291, Mean Platelet Volume 9.6, Neutrophils (%) (Auto) 81H, Lymphocytes (%) (Auto) 11L , Monocytes (%) (Auto) 8, Eosinophils (%) (Auto) 0, Basophils (%) (Auto) 0, Neutrophils # (Auto) 17.7H, Lymphocytes # (Auto) 2.4, Monocytes # (Auto) 1.7H, Eosinophils # (Auto) 0.1, Basophils # (Auto) 0.0 07/14/18 08:50: White Blood Count 23.1H, Red Blood Count 3.45L, Hemoglobin 9.2L, Hematocrit 30L , Mean Corpuscular Volume 86, Mean Corpuscular Hemoglobin 27, Mean Corpuscular Hemoglobin Concent 31L, Red Cell Distribution Width 14.7H, Platelet Count 307, Mean Platelet Volume 9.3, Neutrophils (%) (Auto) 83H, Lymphocytes (%) (Auto) 8L , Monocytes (%) (Auto) 9, Eosinophils (%) (Auto) 0, Basophils (%) (Auto) 0, Neutrophils # (Auto) 19.1H, Lymphocytes # (Auto) 1.9, Monocytes # (Auto) 2.0H, Eosinophils # (Auto) 0.1, Basophils # (Auto) 0.0, Prothrombin Time 16.5H, INR Comment 1.3 07/15/18 05:30: White Blood Count 18.6H, Red Blood Count 3.49L, Hemoglobin 9.2L, Hematocrit 30L , Mean Corpuscular Volume 85, Mean Corpuscular Hemoglobin 26, Mean Corpuscular Hemoglobin Concent 31L, Red Cell Distribution Width 14.9H, Platelet Count 334, Mean Platelet Volume 9.7, Neutrophils (%) (Auto) 76H, Lymphocytes (%) (Auto) 16 , Monocytes (%) (Auto) 7, Eosinophils (%) (Auto) 0, Basophils (%) (Auto) 0, Neutrophils # (Auto) 14.2H, Lymphocytes # (Auto) 3.0, Monocytes # (Auto) 1.4H, Eosinophils # (Auto) 0.0, Basophils # (Auto) 0.0 Microbiology 07/11/18 Blood Culture - Preliminary, Resulted Coryneform bacteria See Comments 07/11/18 Urine Culture - Final, Complete 3 or more isolates 07/14/18 Gram Stain - Final, Resulted 07/14/18 Anaerobic Culture, Resulted Pending 07/14/18 Surgical Culture - Preliminary, Resulted Usual Fecal Liseth Pending Labs Microbiology Date/Time Source Procedure Growth Status 07/11/18 09:38 Peripheral Lt Ac Blood Culture - Preliminary Coryneform bacteria See Comments Resulted 07/11/18 08:45 Peripheral Rt Ac Blood Culture - Preliminary No growth Resulted 07/11/18 08:45 Urine Clean Catch Urine Culture - Final 3 or more isolates Complete 07/14/18 11:43 Abscess Diverticuli Gram Stain - Final Resulted 07/14/18 11:43 Abscess Diverticuli Anaerobic Culture Pending Resulted 07/14/18 11:43 Surgical Culture - Preliminary Usual Fecal Liseth Resulted Laboratory Tests 07/11/18 08:45: White Blood Count 31.8, Red Blood Count 4.50, Hemoglobin 12.1, Hematocrit 37, Mean Corpuscular Volume 83, Mean Corpuscular Hemoglobin 27, Mean Corpuscular Hemoglobin Concent 32, Red Cell Distribution Width 14.8, Platelet Count 412, Mean Platelet Volume 9.3, Neutrophils (%) (Auto) 87, Lymphocytes (%) (Auto) 5, Monocytes (%) (Auto) 8, Eosinophils (%) (Auto) 0, Basophils (%) (Auto) 0, Neutrophils # (Auto) 27.5, Lymphocytes # (Auto) 1.7, Monocytes # (Auto) 2.6, Eosinophils # (Auto) 0.0, Basophils # (Auto) 0.0, Neutrophils % (Manual) 91, Lymphocytes % (Manual) 5, Monocytes % (Manual) 4, Eosinophils % (Manual) 0, Basophils % (Manual) 0, Band Neutrophils 0, Blood Morphology Comment NORMAL, Prothrombin Time 14.0, INR Comment 1.1, Activated Partial Thromboplast Time 37, Urine Color YELLOW, Urine Clarity CLEAR, Urine pH 7, Urine Specific [place] 1.005, Urine Protein 2+, Urine Glucose (UA) NEGATIVE, Urine Ketones 3+, Urine Nitrite NEGATIVE, Urine Bilirubin NEGATIVE, Urine Urobilinogen NORMAL, Urine Leukocyte Esterase 1+, Urine RBC (Auto) 5+, Urine RBC 5-10, Urine WBC RARE, Urine Squamous Epithelial Cells 2-5, Urine Crystals NONE, Urine Bacteria NEGATIVE, Urine Casts NONE, Urine Mucus NEGATIVE, Urine Culture Indicated CULTURE PENDING, Sodium Level 133, Potassium Level 3.8, Chloride Level 98, Carbon Dioxide Level 23, Anion Gap 12, Blood Urea Nitrogen 6, Creatinine 0.75, Estimat Glomerular Filtration Rate > 60, BUN/Creatinine Ratio 8, Glucose Level 162, Lactic Acid Level 1.46, Calcium Level 9.3, Corrected Calcium 9.5, Total Bilirubin 1.0, Aspartate Amino Transf (AST/SGOT) 12, Alanine Aminotransferase ( ALT/SGPT) 10, Alkaline Phosphatase 81, Total Protein 7.5, Albumin 3.7 07/11/18 11:31: Lab Scanned Report Referred Lab Report 07/12/18 05:43: White Blood Count 22.1, Red Blood Count 3.69, Hemoglobin 9.9, Hematocrit 32, Mean Corpuscular Volume 86, Mean Corpuscular Hemoglobin 27, Mean Corpuscular Hemoglobin Concent 31, Red Cell Distribution Width 14.7, Platelet Count 301, Mean Platelet Volume 9.8, Neutrophils (%) (Auto) 81, Lymphocytes (%) (Auto) 10, Monocytes (%) (Auto) 9, Eosinophils (%) (Auto) 0, Basophils (%) (Auto) 0, Neutrophils # (Auto) 17.8, Lymphocytes # (Auto) 2.2, Monocytes # (Auto) 2.0, Eosinophils # (Auto) 0.0, Basophils # (Auto) 0.0, Sodium Level 135, Potassium Level 3.8, Chloride Level 104, Carbon Dioxide Level 23, Anion Gap 8, Blood Urea Nitrogen 5, Creatinine 0.61, Estimat Glomerular Filtration Rate > 60, BUN/ Creatinine Ratio 8, Glucose Level 107, Calcium Level 8.7 07/13/18 10:52: White Blood Count 21.9, Red Blood Count 3.26, Hemoglobin 8.8, Hematocrit 28, Mean Corpuscular Volume 86, Mean Corpuscular Hemoglobin 27, Mean Corpuscular Hemoglobin Concent 31, Red Cell Distribution Width 14.8, Platelet Count 291, Mean Platelet Volume 9.6, Neutrophils (%) (Auto) 81, Lymphocytes (%) (Auto) 11, Monocytes (%) (Auto) 8, Eosinophils (%) (Auto) 0, Basophils (%) (Auto) 0, Neutrophils # (Auto) 17.7, Lymphocytes # (Auto) 2.4, Monocytes # (Auto) 1.7, Eosinophils # (Auto) 0.1, Basophils # (Auto) 0.0 07/14/18 08:50: White Blood Count 23.1, Red Blood Count 3.45, Hemoglobin 9.2, Hematocrit 30, Mean Corpuscular Volume 86, Mean Corpuscular Hemoglobin 27, Mean Corpuscular Hemoglobin Concent 31, Red Cell Distribution Width 14.7, Platelet Count 307, Mean Platelet Volume 9.3, Neutrophils (%) (Auto) 83, Lymphocytes (%) (Auto) 8, Monocytes (%) (Auto) 9, Eosinophils (%) (Auto) 0, Basophils (%) (Auto) 0, Neutrophils # (Auto) 19.1, Lymphocytes # (Auto) 1.9, Monocytes # (Auto) 2.0, Eosinophils # (Auto) 0.1, Basophils # (Auto) 0.0, Prothrombin Time 16.5, INR Comment 1.3 07/15/18 05:30: White Blood Count 18.6, Red Blood Count 3.49, Hemoglobin 9.2, Hematocrit 30, Mean Corpuscular Volume 85, Mean Corpuscular Hemoglobin 26, Mean Corpuscular Hemoglobin Concent 31, Red Cell Distribution Width 14.9, Platelet Count 334, Mean Platelet Volume 9.7, Neutrophils (%) (Auto) 76, Lymphocytes (%) (Auto) 16, Monocytes (%) (Auto) 7, Eosinophils (%) (Auto) 0, Basophils (%) (Auto) 0, Neutrophils # (Auto) 14.2, Lymphocytes # (Auto) 3.0, Monocytes # (Auto) 1.4, Eosinophils # (Auto) 0.0, Basophils # (Auto) 0.0 Discharge Home Medications: Active Scripts Active Reported Phenazopyridine HCl 200 Mg Tablet 200 Mg PO TID PRN FILLED 07-07-18 Macrobid 100 mg Capsule (Nitrofurantoin Monohyd/M-Cryst) 100 Mg Capsule 1 Tab PO BID 7 Days 7 DAY SUPPLY FILLED 07-07-18 Instructions to patient/family Please see electronic discharge instructions given to patient. Clinical Quality Measures DVT/VTE Risk/Contraindication: Risk Factor Score Per Nursin RFS Level Per Nursing on Admit: 4+=Very High EDNA WILLIAM MD Jul 16, 2018 10:47
[2018-07-16] MEDS ORDERED: AMOX-358 PO (10:49)
--- NOTE | 2018-07-16 10:50 | Discharge Inst-Simple/Standard ---
Discharge Inst-Standard Discharge Medications New, Converted or Re-Newed RX: RX on Chart Patient Instructions/Follow Up Plan of Care/Instructions/FU: Education on J.P care. August show. F/U with Dr. Lopez on Saturday, the 22 of July Activity as Tolerated: Yes Discharge Diet: Soft Diet EDNA WILLIAM MD Jul 16, 2018 10:50
[2018-07-16 11:01] LABS: BASOPHILS # (AUTO) 0.1 10^3/uL (0.0-0.1); BASOPHILS % (AUTO) 1 % (0-10); EOSINOPHILS # (AUTO) 0.2 10^3/uL (0.0-0.3); EOSINOPHILS % (AUTO) 1 % (0-10); HEMATOCRIT 30 % (35-52); HEMOGLOBIN 9.1 G/DL (11.5-16.0); LYMPHOCYTES # (AUTO) 2.6 X 10^3 (1.0-4.0); LYMPHOCYTES % (AUTO) 16 % (12-44); MEAN CORPUSCULAR HEMOGLOBIN 26 PG (25-34); MEAN CORPUSCULAR HGB CONC 31 G/DL (32-36); MEAN CORPUSCULAR VOLUME 86 FL (80-99); MEAN PLATELET VOLUME 9.6 FL (7.4-10.4); MONOCYTES # (AUTO) 1.1 X 10^3 (0.0-1.0); MONOCYTES % (AUTO) 7 % (0-12); NEUTROPHILS # (AUTO) 12.2 X 10^3 (1.8-7.8); NEUTROPHILS % (AUTO) 76 % (42-75); PLATELET COUNT 354 10^3/uL (130-400); RED CELL DISTRIBUTION WIDTH 14.9 % (10.0-14.5); WHITE BLOOD COUNT 16.1 10^3/uL (4.3-11.0)
[2018-07-16] MEDS: PIPERACILLIN/TAZO 4.5 GM/NS 100 ML IV SCH ×2 (11:15)
[2018-07-16] MEDS: IBUPROFEN TABLET 200 MG TAB PO PRN (11:23)
[2018-07-16 12:00] VITALS: BP 148/66
--- NOTE | 2018-07-17 10:23 | Physician Query Clarification ---
PQ-Conflicting Diagnosis Admission/Discharge Admission Date: Jul 11, 2018 at 11:31 Discharge Date: Jul 16, 2018 at 14:35 The medical record reflects the following clinical scenario: History/Risk Factors: abscess Clinical Findings: elevated WBC Treatment: IV fluids, antibiotics Question: Do you agree with the impression of the sepsis per Dr. Clark? Please document a response below. PHYSICIAN RESPONSE Do you agree w/Consulting Dx?: Yes In responding to this query, please exercise your independent professional judgment. The purpose of this communication is to more accurately reflect the complexity of your patients condition. The fact that a question is asked does not imply that any particular answer is desired or expected. Thank you for your timely response to this clarification. Requestors name: [ ] Phone # [ ] THIS PHYSICIAN QUERY FORM IS A PERMANENT PART OF THE MEDICAL RECORD HERACLIO PERRIN Jul 17, 2018 10:23 EDNA WILLIAM MD Jul 17, 2018 12:01
== END 2018-07-16 14:35 | disposition home or self-care (01) | DRG 872 ==
LOC: EDUNIT# 08:28 → ER 08:29 → 4TH 11:31
PROVIDERS: ADMIT Surgery; ATTEND Surgery
PROC: 0D9N30Z Drainage of Sigmoid Colon with Drainage Device, Percutaneous Approach (ICD-10-PCS; principal; 2018-07-14)
DX: A41.9 Sepsis, unspecified organism (principal); K57.20 Diverticulitis of large intestine with perforation and abscess without bleeding; K57.30 Diverticulosis of large intestine without perforation or abscess without bleeding; Z87.442 Personal history of urinary calculi; Z87.440 Personal history of urinary (tract) infections
CPT/HCPCS: 36415; 74018; 74176; 74177; 77012; 80048; 80053; 81000; 83605; 84703; 85007; 85025; 85027; 85610; 85730; 87040; 87070; 87075; 87076; 87088; 87185; 87205; 96361; 96374; 96375; 99156

== ENCOUNTER 2018-07-18 08:08 | Inpatient (IN) | payer SELFPAY ==
[~2018-07-18] VITALS: Ht 154.9 cm; Wt 128.5 kg
[~2018-07-18 08:08] MED LIST changes: +ACHD5005 PO; +AMOX-358 PO; +NITR-65 PO; +PHEN-639 PO; +PHEN-827 PO
--- OUTSIDE RECORDS SUMMARY | 2018-07-18 08:13 | XMS REPORT ---
Author Author Migration, Doctor Organization 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 629811748 Problem Gestational diabetes mellitus, delivered 648.81 Active 86019368 Problem Polydipsia R63.1 Active 42881111 Problem Morbid (severe) obesity due to excess calories E66.01 Active 32095164018746 Problem Other obesity due to excess calories E66.09 Active 50016713700237 Problem Body mass index (BMI) of 50-59.9 in adult Z68.43 Active 884314925 Problem History of gestational diabetes Z86.32 Active 910985813 Problem Polyphagia R63.2 Active 180832794 ALLERGIES No Information ENCOUNTERS Encounter Location Date Diagnosis [place] [id number] [place] [id number] Jun, Morbid obesity E66.01 and Acute cystitis with hematuria N30.01 [place] [id number] [place] [id number] Jun, Strep pharyngitis J02.0 ; Sore throat J02.9 ; Fever, unspecified R50.9 and Morbid obesity E66.01 [facility] [id number] [place] [address] Apr, Sore throat J02.9 and Acute nasopharyngitis J00 [facility] [address] [place] [id number] [place] [address] Feb, Viral upper respiratory tract infection J06.9 and BMI 50.0- 59.9, adult Z68.[address] [id number] August, Low sodium levels E87.1 and Lipid screening Z13.220 [facility] [address] [facility] [id number] [id number] August, 2018 Polydipsia R63.1 ; History of gestational diabetes Z86.32 ; Morbid (severe ) obesity due to excess calories E66.01 ; Body mass index (BMI) of 50-59.9 in adult Z68.43 ; Polyphagia R63.2 ; Frequent urination R35.0 and BMI 50.0-59.9, adult Z68.[address] [id number] [id number] Jun, Strep throat J02.0 and Cough R05 [facility] [place] [id number] [place] [address] 07 May, 2018 BMI 50.0-59.9, adult Z68.43 ; Sore throat J02.9 and Strep throat J02.0 [facility] [address] [facility] [id number] [id number] Jan, 2017 Well woman exam with routine gynecological exam Z01.419 ; Screening breast examination Z12.31 ; High risk sexual behavior Z72.51 ; Other obesity due to excess calories E66.09 ; Body mass index (BMI) of 50-59.9 in adult Z68.43 ; Tobacco abuse Z72.0 and Tobacco abuse counseling Z71.6 [facility] [address] [place] [address] May, Sore throat J02.9 [place] [address] [place] [id number] [place] [address] May, [place] [address] [place] [id number] [place] [address] Feb, [place] [address] [address] Jun, [place] [address] [place] [id number] [place] [address] Apr, Ankle pain, left M25.572 [facility] [address] [place] [address]58 [address] 14 Apr, 2015 [facility] [address] [place] [id number] [place] [address] Apr, Ankle pain, left M25.572 [place] [address] [place] [id number] [place] [address] 36992- 8[address] 21 Dec, 2014 ASCUS with positive high risk HPV cervical 795.01 [place] [address] [place] [id number] [place] [address]69- 46[address] 16 Dec, 2014 Gestational diabetes mellitus, delivered 648.81 [place] [address] [address] 14 Dec, 2014 Routine follow-up V24.2 ; General counselling and advice on contraception V25.09 and Gestational diabetes mellitus, delivered 648.81 [place] [address] [address] Nov, Oligohydramnios in second trimester 658.03 ; Rupture, membranes, premature 658.10 ; Gestational diabetes 648.80 and Supervision of high-risk of elderly multigravida V23.82 [place] [address] [place] [id number] [place] [address]68[address] Oct, Supervision of high-risk of elderly multigravida V23.82 and premature rupture of membranes (PPROM) with unknown onset of labor 658.10 [place] [address] [place] [id number] [place] [address] Oct, Supervision of high-risk of elderly multigravida V23.82 and premature rupture of membranes (PPROM) with unknown onset of labor 658.10 [place] [address] [place] [id number] [place] [address] 7985 Oct, Supervision of high-risk of elderly multigravida V23.82 ; TDAP DX V06.1 ; Oligohydramnios in second trimester 658.03 ; premature rupture of membranes (PPROM) with unknown onset of labor 658.10 and Gestational diabetes 648.80 [place] [address] [address] Oct, Oligohydramnios in second trimester 658.03 ; premature rupture of membranes (PPROM) with unknown onset of labor 658.10 ; Supervision of high-risk of elderly multigravida V23.82 and Gestational diabetes 648.80 [place] [address] [place] [address]07[address] Sep, [place] [address] [place] [id number] [place] [address]28- 9173 Sep, Abnormal glucose tolerance in 648.80 [place] [address] [place] [id number] [place] [address] Sep, Oligohydramnios in second trimester 658.03 ; Rupture, membranes, premature 658.10 and Supervision of high-risk of elderly multigravida V23.82 [place] [address] [place] [address]11- 3428 Sep, [place] [address] [place] [id number] [place] [address]25[address] Sep, [facility] [address] [address] Sep, [place] [address] [place] [id number] [place] [address] 86171[address] 8620 Sep, [facility] [address] [place] [address]703[address] Sep, Supervision of high-risk of elderly multigravida V23.82 ; Oligohydramnios in second trimester 658.03 and premature rupture of membranes (PPROM) with unknown onset of labor 658.10 [place] [address] [address] August, Supervision of high-risk of elderly multigravida V23.82 [facility] [place] [facility] [address] [id number] [place] [address] 14 Jul, 2014 [facility] [place] [facility] [address] [id number] [place] [address] Jul, [facility] [place] [facility] [address] [id number] [place] [address] 30 Jun, 2014 [facility] [place] [facility] [address] [id number] [place] [address] Jun, [facility] [place] [facility] [address] [id number] [place] [address] Jun, [facility] [place] [facility] [address] [id number] [place] [address] Jun, [facility] [place] [facility] [address] [facility] [id number] [place] [address] Jun, [facility] [place] [facility] [address] [facility] [id number] [place] [address] 7[address] Jun, [facility] [place] [facility] [address] [id number] [place] [address] 9[address] Jun, [facility] [place] [facility] [address] [facility] [id number] [place] [address]45 Jun, [facility] [place] [facility] [address] [id number] [place] [address] 5765 Jun, [facility] [place] [facility] [address] [id number], [place] [address] May, [facility] [place] [facility] [address] [id number] [place] [address] 555[address] May, [facility] [place] [facility] [address] [id number], [place] [address] May, [facility] [place] [facility] [address] [facility] [id number] [place] [address] 5130 May, [facility] [place] [facility] [address] [facility] [id number], [place] [address] May, 2014 [facility] [address] [facility] [id number] [place] [address] May, 2014 [facility] [place] [facility] [address] [facility] [id number] [place] May, 2014 [facility] [place] [facility] [address] [facility] [id number] [place] [address]- 2630 May, 2014 [facility] [place] [facility] [address] [facility] [id number] [place] [address]- 9[address] May, 2014 [facility] [place] [facility] [address] [facility] [id number] [place] [address]- 4768 May, 2014 [facility] [place] [facility] [address] [facility] [id number] [place] [address] 6086 May, 2014 [facility] [place] [facility] [address] [id number] [address] May, 2014 [facility] [address] [place] [id number] [address] May, [facility] [id number] [id number] Apr, [facility] [address] [facility] [id number], [place] [address] Apr, [facility] [address] [id number] [id number] Nov, [facility] [address] [id number] [id number] Apr, [facility] [address] [facility] [id number][place] [address] Apr, [facility] [place] [facility] [address] [facility] [id number], [place] [address] Jan, [facility] [place] [facility] [address] [facility] [id number], [place] [address] Jan, [facility] [address] [id number] [id number] Jan, [facility] [address] [id number] [id number] Dec, [facility] [address] [id number] [id number] Nov, [facility] [address] [id number] [address] Oct, [facility] [address], [place] [address] Mar, [facility] [address], [place] [address] Mar, [facility] [address] [place] [id number] [place] [address]- 8298 Mar, [facility] [address] [place] [id number] [place] [address]- 5775 Sep, [facility] [address], [place] [address] May, [facility] [address], [place] [address] Mar, [facility] [address] [address] May, IMMUNIZATIONS No Known Immunizations SOCIAL HISTORY Never Assessed REASON FOR VISIT EMR-[facility] [place] PLAN OF CARE VITAL SIGNS MEDICATIONS Unknown Medications RESULTS No Results PROCEDURES No Known procedures INSTRUCTIONS MEDICATIONS ADMINISTERED No Known Medications MEDICAL (GENERAL) HISTORY Type Description Date Medical History hx of Gestational DM Surgical History tubal ligation Surgical History Kidney stones 2007 Hospitalization History child Hospitalization History flu with tiago Ackerman 1992
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
[2018-07-18] MEDS ORDERED: ONDANSETRON 4 MG/2 ML (SDV) Z0FRAN IVP ONE (08:45)
[2018-07-18 09:12] LABS: BASOPHILS # (AUTO) 0.1 10^3/uL (0.0-0.1); BASOPHILS % (AUTO) 0 % (0-10); EOSINOPHILS # (AUTO) 0.1 10^3/uL (0.0-0.3); EOSINOPHILS % (AUTO) 0 % (0-10); HEMATOCRIT 32 % (35-52); HEMOGLOBIN 9.9 G/DL (11.5-16.0); LYMPHOCYTES # (AUTO) 2.4 X 10^3 (1.0-4.0); LYMPHOCYTES % (AUTO) 11 % (12-44); MEAN CORPUSCULAR HEMOGLOBIN 27 PG (25-34); MEAN CORPUSCULAR HGB CONC 31 G/DL (32-36); MEAN CORPUSCULAR VOLUME 85 FL (80-99); MEAN PLATELET VOLUME 9.3 FL (7.4-10.4); MONOCYTES # (AUTO) 2.1 X 10^3 (0.0-1.0); MONOCYTES % (AUTO) 10 % (0-12); NEUTROPHILS # (AUTO) 17.5 X 10^3 (1.8-7.8); NEUTROPHILS % (AUTO) 79 % (42-75); PLATELET COUNT 425 10^3/uL (130-400); RED CELL DISTRIBUTION WIDTH 15.2 % (10.0-14.5); WHITE BLOOD COUNT 22.2 10^3/uL (4.3-11.0)
[2018-07-18 09:24] LABS: INR 1.1 (0.8-1.4); PROTHROMBIN TIME PATIENT 14.9 SEC (12.2-14.7)
--- NOTE | 2018-07-18 09:34 | Diagnostic Imaging Report ---
INDICATION: Drain leaking and fever. TIME OF EXAMINATION: 9:15 AM. COMPARISON: No prior studies are available for comparison. FINDINGS: The heart size is normal. The pulmonary vascularity is unremarkable. The lungs are clear. No infiltrate, effusion, or pneumothorax is detected. IMPRESSION: No acute cardiopulmonary process is detected. Dictated by: Dictated on workstation # [id number]
[2018-07-18 09:36] LABS: ALANINE AMINOTRANSFERASE 11 U/L (0-55); ALBUMIN 2.8 GM/DL (3.2-4.5); ALKALINE PHOSPHATASE 56 U/L (40-136); BILIRUBIN,TOTAL 0.3 MG/DL (0.1-1.0); BUN/CREATININE RATIO 5; CALCIUM 8.5 MG/DL (8.5-10.1); CARBON DIOXIDE 30 MMOL/L (21-32); CHLORIDE 98 MMOL/L (98-107); CREATININE SERUM 0.62 MG/DL (0.60-1.30); GFR ESTIMATED > 60; GLUCOSE 117 MG/DL (70-105); POTASSIUM 3.1 MMOL/L (3.6-5.0); SODIUM 140 MMOL/L (135-145); TOTAL PROTEIN 6.9 GM/DL (6.4-8.2)
[2018-07-18 09:37] LABS: BAND NEUTROPHILS 7 %; BASOPHILS % (MANUAL) 0 %; EOSINOPHILS % (MANUAL) 0 %; LYMPHOCYTES % (MANUAL) 15 %; MONOCYTES % (MANUAL) 7 %; NEUTROPHILS % (MANUAL) 71 %
[2018-07-18 09:38] LABS: ANISOCYTOSIS SLIGHT
[2018-07-18] MEDS ORDERED: IOHEXOL 350 MG/ML 100 ML (OMNIPAQUE 350) VIAL IV ONE (09:45)
[2018-07-18] MEDS ORDERED: HOLD METFORMIN - RECEIVED CONTRAST 20 ML VIAL IV SCH (09:45)
[2018-07-18 09:47] LABS: BILIRUBIN,URINE NEGATIVE (NEGATIVE); CLARITY,URINE CLEAR; COLOR,URINE YELLOW; GLUCOSE, URINE (UA) NEGATIVE (NEGATIVE); KETONES,URINE 2+ (NEGATIVE); LEUKOCYTE ESTERASE ,URINE NEGATIVE (NEGATIVE); NITRITE,URINE NEGATIVE (NEGATIVE); PH,URINE 8 (5-9); PROTEIN,URINE NEGATIVE (NEGATIVE); UROBILINOGEN,URINE NORMAL (NORMAL)
[2018-07-18 09:54] LABS: BACTERIA,URINE NEGATIVE /HPF; RBC,URINE RARE /HPF; WBC,URINE 0-2 /HPF
[2018-07-18] MEDS ORDERED: AZITHROMYCIN 250 MG TAB (ZITHROMAX) PO ONE (10:00)
--- NOTE | 2018-07-18 10:19 | Diagnostic Imaging Report ---
PROCEDURE: CT abdomen and pelvis with contrast. TECHNIQUE: Multiple contiguous axial images were obtained through the abdomen and pelvis after administration of intravenous contrast. Auto Exposure Controls were utilized during the CT exam to meet ALARA standards for radiation dose reduction. INDICATION: Pelvic abscess, status post percutaneous drain placement. Patient presents to the ER and states her drain bag is leaking. COMPARISON: 07/13/2018 and 07/14/2018. FINDINGS: There has been development of small bilateral pleural effusions with some associated infiltrates or atelectasis in both bases. The liver and gallbladder are unremarkable. There is no biliary ductal dilatation. The pancreas and spleen are unremarkable. There no adrenal mass. A calculus in the upper pole of the left kidney is again seen. The right kidney is unremarkable. There is no hydronephrosis. The aorta is nonaneurysmal. The multiloculated gas and fluid collection in the left paramidline pelvis has improved. The more inferior component adjacent to the fundus of the uterus is approximately 3.6 x 2.8 cm compared with 5.8 x 5.7 cm. The pigtail drain is located within this inferior component. Just slightly more cephalad and posterior, there is a second component which contains some fluid and gas and is likely inseparable from the left ovary. This portion also has decreased in size measuring approximately 4.2 x 5.1 cm compared with 5.5 x 7.0 cm. A small amount of fluid in the left gutter is noted which was not present on the prior exam. Trace fluid between the uterus and bladder on the right side is also seen, not present on the prior exam. There is no free air. IMPRESSION: 1. Development of small bilateral pleural effusions and bibasilar infiltrate/atelectasis. 2. The pelvic gas and fluid collections have decreased in size since the prior CT from 07/13/2018, status post percutaneous drain placement. The percutaneous drain appears to be appropriately centered in the more inferior loculation. No new collection is seen. There is some minimal free fluid, as described. No bowel obstruction is identified. Dictated by: Dictated on workstation # [id number]
--- NOTE | 2018-07-18 11:34 | NUR ---
PT UPDATED THAT EVERYTHING WAS BACK ET WE WERE WAITING ON DR TO LOOK OVER EVERYTHING.
--- NOTE | 2018-07-18 11:41 | NUR ---
IN TALKING TO PT AT THIS TIME.
[2018-07-18] MEDS ORDERED: PIPERACILLIN/TAZOBACTAM (BULK) 4.5 GM in NS (IVPB) 100 ML IV ONE (11:45)
[2018-07-18] MEDS ORDERED: PIPERACILLIN/TAZO 4.5 GM VIAL (ZOSYN) IV ONE (11:58)
[2018-07-18] MEDS ORDERED: NS (IVPB) 100 ML ONE (11:58)
--- NOTE | 2018-07-18 12:13 | NUR ---
DR MCLAIN HERE TO SEE PT.
--- NOTE | 2018-07-18 12:19 | ED General ---
General Chief Complaint: Catheter/Drain/Tube Problems Stated Complaint: DRAIN BAG IS LEAKING Nursing Triage Note: ARRIVED VIA WC TO ROOM 07 WITH COMPLAINTS OF DRAIN LEAKING AND FEVER. Nursing Sepsis Screen: Possible Sepsis Risk Source of Information: Patient, Old Records Exam Limitations: No Limitations History of Present Illness Date Seen by Provider: Jul 18, 2018 Time Seen by Provider: 08:10 Initial Comments This 42-year-old woman presents to the emergency room with complaints of fever, drainage around a DANIEL drain from her abdomen, and abdominal pain. She had been admitted from July 11 through July 16. She had percutaneous drainage of an abscess from a sigmoid colon perforation. She reports her temperature at home has been up to 103.9 despite using Augmentin as prescribed. She is nauseated without vomiting. She continues to have a brown slightly purulent appearing drainage from her drain. There is some leaking around the periphery of the insertion site. Pain is worse with movement and deep inspiration. She has had some cough over the past couple days. Surgery was performed by Dr. William. She is to follow-up with Dr. Lopez. Allergies and Home Medications Allergies Coded Allergies: clindamycin (Unverified Allergy, Unknown, 07/18/18) Home Medications Amoxicillin/Potassium Clav 1 Each Tablet, 1 EACH PO Q12H Prescribed by: EDNA WILLIAM on 07/16/18 1049 Hydrocodone Bit/Acetaminophen 1 Tab Tab, 1-2 TAB PO Q6H PRN for PAIN-MODERATE Prescribed by: EDNA WILLIAM on 07/16/18 1048 Patient Home Medication List Home Medication List Reviewed: Yes Review of Systems Review of Systems Constitutional: see HPI EENTM: no symptoms reported Respiratory: no symptoms reported Cardiovascular: no symptoms reported Gastrointestinal: see HPI Genitourinary: no symptoms reported : No Musculoskeletal: no symptoms reported Skin: no symptoms reported Psychiatric/Neurological: No Symptoms Reported Hematologic/Lymphatic: No Symptoms Reported Immunological/Allergic: no symptoms reported Past Nuyvbqk-Hsosov-Zpuvwu Hx Past Med/Social Hx: Reviewed and Corrections made Patient Social History Alcohol Use: Denies Use Recreational Drug Use: No Smoking Status: Current Everyday Smoker Type Used: Cigarettes Recent Foreign Travel: No Contact w/Someone Who Travel: No Recent Infectious Disease Expo: No Recent Hopitalizations: No Seasonal Allergies Seasonal Allergies: No Past Medical History Surgeries: Yes Bowel Surgery, Tubal Ligation Respiratory: Yes Cardiac: No Neurological: No Reproductive Disorders: No Genitourinary: Yes Kidney Stones Gastrointestinal: No Musculoskeletal: No Endocrine: No HEENT: No Cancer: No Psychosocial: No Integumentary: No Blood Disorders: No Family Medical History Abdominal aortic aneurysm 19 MOTHER Asthma 19 FATHER G8 BROTHER Physical Exam Vital Signs Vital Signs - First Documented 07/18/18 07/18/18 07/18/18 08:20 13:10 18:22 Temp 100.2 Pulse 95 Resp 16 B/P (MAP) 139/75 (96) Pulse Ox 91 O2 Delivery Room Air O2 Flow Rate 2.00 FiO2 21 Capillary Refill : Less Than 3 Seconds Height, Weight, BMI Height: 5'1.00" Weight: 269lbs. 0.0oz. 122.538209sw; BMI Method:Stated General Appearance: WD/WN, Mild Distress HEENT: PERRL/EOMI, Normal ENT Inspection Neck: Normal Inspection Respiratory: Lungs Clear, Normal Breath Sounds, No Accessory Muscle Use, No Respiratory Distress, Other (mild splinting with respirations) Cardiovascular: No Edema, No Murmur, Tachycardia Gastrointestinal: Normal Bowel Sounds, Soft; No Distended; Tenderness ( generalized), Other (brown and slightly purulent appearing drainage in the and drain tube and collection canister. 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 Skin: Normal Color, Warm/Dry Focused Exam Lactate Level Lactic Acid Level Progress/Results/Core Measures Suspected Sepsis Recent Fever Within 48 Hours: Yes Infection Criteria Present: Suspected New Infection New/Unexplained Altered Menta: No Sepsis Screen: Possible Sepsis Risk SIRS Temperature:100.2 Pulse: 95 Respiratory Rate: 16 Laboratory Tests 07/19/18 04:50: White Blood Count 14.3H 07/20/18 06:05: White Blood Count 9.6 Blood Pressure 139 /75 Mean: 96 Laboratory Tests 07/19/18 04:50: Creatinine 0.57L, Platelet Count 396, Total Bilirubin 0.3 07/20/18 06:05: Creatinine 0.54L, Platelet Count 435H Results/Orders Lab Results Laboratory Tests Test 07/20/18 06:05 Range/Units White Blood Count 9.6 4.3-11.0 10^3/uL Red Blood Count 2.94 L 4.35-5.85 10^6/uL Hemoglobin 7.6 L 11.5-16.0 G/DL Hematocrit 25 L 35-52 % Mean Corpuscular Volume 86 80-99 FL Mean Corpuscular Hemoglobin 26 25-34 PG Mean Corpuscular Hemoglobin Concent 30 L 32-36 G/DL Red Cell Distribution Width 15.2 H 10.0-14.5 % Platelet Count 435 H 130-400 10^3/uL Mean Platelet Volume 9.5 7.4-10.4 FL Sodium Level 140 135-145 MMOL/L Potassium Level 3.2 L 3.6-5.0 MMOL/L Chloride Level 102 98-107 MMOL/L Carbon Dioxide Level 27 21-32 MMOL/L Anion Gap 11 5-14 MMOL/L Blood Urea Nitrogen 4 L 7-18 MG/DL Creatinine 0.54 L 0.60-1.30 MG/DL Estimat Glomerular Filtration Rate > 60 BUN/Creatinine Ratio 7 Glucose Level 91 70-105 MG/DL Calcium Level 8.1 L 8.5-10.1 MG/DL My Orders Medications Given in ED Vital Signs/I&O 07/21/18 07/21/18 07/21/18 07/21/18 15:17 16:00 19:50 21:06 Temp 98.8 Pulse 84 Resp 18 B/P (MAP) 152/70 (97) Pulse Ox 93 96 93 O2 Delivery Room Air Room Air Room Air Room Air 07/21/18 23:59 Temp 97.8 Pulse 92 Resp 20 B/P (MAP) 132/83 (99) Pulse Ox 95 O2 Delivery Room Air Capillary Refill : Less Than 3 Seconds Blood Pressure Mean: 96 Progress Note : Progress Note Septic workup was pursued. CT of the abdomen and pelvis was obtained and showed no discrete changes in the abdomen. There did appear to be some possible pneumonia developing in the lower lungs. Patient was started on Zosyn after collection of blood cultures. Dr. Lopez presented to the emergency room personally to assess the patient. He agreed to admit the patient and wrote orders. Diagnostic Imaging Diagonstic Imaging: CT Plain Films/CT/US/NM/MRI: abdomen, pelvis Comments CT abdomen and pelvis viewed by me and report reviewed. See report below: NAME: SAMMY BRADFORD [facility] REC#: [id number] PT STATUS: REG ER : 1975 PHYSICIAN: LAUREL GLASS MD ADMIT DATE: 07/18/18/ER Signed Date of Exam: 07/18/18 CT ABDOMEN/PELVIS W PROCEDURE: CT abdomen and pelvis with contrast. TECHNIQUE: Multiple contiguous axial images were obtained through the abdomen and pelvis after administration of intravenous contrast. Auto Exposure Controls were utilized during the CT exam to meet ALARA standards for radiation dose reduction. INDICATION: Pelvic abscess, status post percutaneous drain placement. Patient presents to the ER and states her drain bag is leaking. COMPARISON: 07/13/2018 and 07/14/2018. FINDINGS: There has been development of small bilateral pleural effusions with some associated infiltrates or atelectasis in both bases. The liver and gallbladder are unremarkable. There is no biliary ductal dilatation. The pancreas and spleen are unremarkable. There no adrenal mass. A calculus in the upper pole of the left kidney is again seen. The right kidney is unremarkable. There is no hydronephrosis. The aorta is nonaneurysmal. The multiloculated gas and fluid collection in the left paramidline pelvis has improved. The more inferior component adjacent to the fundus of the uterus is approximately 3.6 x 2.8 cm compared with 5.8 x 5.7 cm. The pigtail drain is located within this inferior component. Just slightly more cephalad and posterior, there is a second component which contains some fluid and gas and is likely inseparable from the left ovary. This portion also has decreased in size measuring approximately 4.2 x 5.1 cm compared with 5.5 x 7.0 cm. A small amount of fluid in the left gutter is noted which was not present on the prior exam. Trace fluid between the uterus and bladder on the right side is also seen, not present on the prior exam. There is no free air. IMPRESSION: 1. Development of small bilateral pleural effusions and bibasilar infiltrate/atelectasis. 2. The pelvic gas and fluid collections have decreased in size since the prior CT from 07/13/2018, status post percutaneous drain placement. The percutaneous drain appears to be appropriately centered in the more inferior loculation. No new collection is seen. There is some minimal free fluid, as described. No bowel obstruction is identified. Dictated by: Dictated on workstation # [id number] Dict: 07/18/18 1005 Trans: 07/18/18 1143 Interpreted by: EDITA CHANDRA MD Electronically signed by: EDITA CHANDRA MD 07/18/18 1143 Diagonstic Imaging: Xray Plain Films/CT/US/NM/MRI: chest Comments Chest x-ray viewed by me and report reviewed. See report below: NAME: SAMMY BRADFORD [facility] REC#: [id number] PT STATUS: ADM IN : 1975 PHYSICIAN: LAUREL GLASS MD ADMIT DATE: 07/18/18/ Signed Date of Exam: 07/18/18 CHEST 1 VIEW, AP/PA ONLY INDICATION: Drain leaking and fever. TIME OF EXAMINATION: 9:15 AM. COMPARISON: No prior studies are available for comparison. FINDINGS: The heart size is normal. The pulmonary vascularity is unremarkable. The lungs are clear. No infiltrate, effusion, or pneumothorax is detected. IMPRESSION: No acute cardiopulmonary process is detected. Dictated by: Dictated on workstation # [id number] Dict: 07/18/18 0931 Trans: 07/18/18 1500 Interpreted by: EDITA CHANDRA MD Electronically signed by: EDITA CHANDRA MD 07/18/18 1500 Departure Communication (Admissions) Time/Spoke to Admitting Phy: 12:00 Dr. Lopez Impression Primary Impression: Sepsis Qualified Codes: A41.9 - Sepsis, unspecified organism Additional Impressions: Pneumonia Qualified Codes: J18.1 - Lobar pneumonia, unspecified organism Bowel perforation Disposition: ADMITTED INPATIENT Condition: Improved Admissions Decision to Admit Reason: Admit from ER (General) Decision to Admit/Date: Aug 18, 2018 Time/Decision to Admit Time: 12:00 Departure-Patient Inst. Referrals: [facility] (PCP/Family) Primary Care Physician LAUREL GLASS MD Jul 18, 2018 12:19
[2018-07-18] MEDS ORDERED: PIPERACILLIN/TAZOBACTAM (BULK) 4.5 GM in NS (IVPB) 100 ML IV SCH (12:45)
[2018-07-18] MEDS ORDERED: morphine INJ 10 MG/ML 1ML (SYR OR VIAL) IVP PRN (12:45)
[2018-07-18] MEDS ORDERED: ONDANSETRON 4 MG/2 ML (SDV) Z0FRAN IVP PRN (12:45)
--- NOTE | 2018-07-18 12:50 | History & Physical-Surgical ---
History of Present Illness History of Present Illness Reason for visit/HPI HPI: Pt is a 42 yo female who was just discharged from the hospital after treatment for Abdominal abscess; while here she had CT and then drain placed. She had improved enough to go home and I believe she was just sent home yesterday. She states at home she was feeling weak and having abdominal pain with fever. She was also concerned about fluid coming out around the drain that was placed. She is hungry, but mostly thirsty and asking for something to drink. She rates her pain as 4-5 out of 10. Pain is suprapubic and LLQ. She has a cough, non-productive but is not having trouble breathing. She reports a temp at home of 103.9 and is nauseous. Date of Admission Jul 18, 2018 at 12:24 Time Seen by a Provider: 12:11 I consulted on this patient on 07/18/18 12:41 Attending Physician Mannie Lopez DO Admitting Physician [place] Consult Allergies and Home Medications Allergies Coded Allergies: clindamycin (Unverified Allergy, Unknown, 07/11/18) Home Medications Amoxicillin/Potassium Clav 1 Each Tablet, 1 EACH PO Q12H Prescribed by: EDNA WILLIAM on 07/16/18 1049 Hydrocodone Bit/Acetaminophen 1 Tab Tab, 1-2 TAB PO Q6H PRN for PAIN-MODERATE Prescribed by: EDNA WILLIAM on 07/16/18 1048 Patient Home Medication List Home Medication List Reviewed: Yes Past Kerrpbe-Froicb-Xhhgym Hx Patient Social History Alcohol Use: Denies Use Recreational Drug Use: No Smoking Status: Current Everyday Smoker Type Used: Cigarettes Recent Foreign Travel: No Contact w/Someone Who Travel: No Recent Infectious Disease Expo: No Recent Hopitalizations: No Seasonal Allergies Seasonal Allergies: No Surgeries History of Surgeries: Yes Surgeries: Bowel Surgery, Tubal Ligation Respiratory History of Respiratory Disorde: Yes Cardiovascular History of Cardiac Disorders: No Neurological History of Neurological Disord: No Reproductive System Hx Reproductive Disorders: No Genitourinary Genitourinary Disorders: Kidney Stones Gastrointestinal History of Gastrointestinal Di: No Musculoskeletal History of Musculoskeletal Dis: No Endocrine History of Endocrine Disorders: No HEENT History of HEENT Disorders: No Cancer History of Cancer: No Psychosocial History of Psychiatric Problem: No Integumentary History of Skin or Integumenta: No Blood Transfusions History of Blood Disorders: No Family Medical History Significant Family History: Asthma (father and brother) Family Medial History: Abdominal aortic aneurysm 19 MOTHER Asthma 19 FATHER G8 BROTHER Review of Systems Constitutional: chills, diaphoresis, malaise, weakness EENTM: No blurred vision, No dental problems, No mouth swelling, No epistaxis, No throat swelling Respiratory: cough; No dyspnea on exertion, No hemoptysis, No orthopnea, No phlegm Cardiovascular: No chest pain, No edema, No palpitations Gastrointestinal: abdominal pain, diarrhea; No hematemesis; nausea; No vomiting Genitourinary: No dysuria, No frequency, No hematuria Musculoskeletal: back pain, joint pain, muscle stiffness Skin: No change in color, No change in hair/nails Psychiatric/Neurological: Denies Anxiety, Denies Depressed, Denies Seizure, Denies Tremors pt denies any abnormal bleeding or bruising, no heat or cold intolerance Physical Exam Vital Signs Vital Signs - First Documented 07/18/18 08:20 Temp 100.2 Pulse 95 Resp 16 B/P (MAP) 139/75 (96) Pulse Ox 91 O2 Delivery Room Air Capillary Refill : Less Than 3 Seconds Height, Weight, BMI Height: 5'1.00" Weight: 269lbs. 0.0oz. [id number]; BMI Method:Stated General Appearance: Mild Distress, Obese Eyes: Bilateral Eye PERRL, Bilateral Eye EOMI HEENT: Pharynx Normal; No Pale Conjunctivae (L), No Pale Conjunctivae (R) Neck: Full Range of Motion, Supple; No Thyromegaly Respiratory: Chest Non Tender, No Accessory Muscle Use, Crackles (at bases), Decreased Breath Sounds (at bases) Cardiovascular: Regular Rate, Rhythm, No Edema, Normal Peripheral Pulses Gastrointestinal: Normal Bowel Sounds, No Organomegaly, Tenderness (LLQ and around drain site) Back: No CVA Tenderness, No Vertebral Tenderness Extremity: Normal Capillary Refill, Normal Inspection, Normal Range of Motion, Non Tender, No Calf Tenderness, No Pedal Edema Neurologic/Psychiatric: Alert, Oriented x3, No Motor/Sensory Deficits, Normal 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, 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 Skin: Normal Color, Warm/Dry Lymphatic: No Adenopathy (neck, axilla or groin) Data Review Labs Laboratory Tests 07/18/18 09:05: White Blood Count 22.2H, Red Blood Count 3.74L, Hemoglobin 9.9L, Hematocrit 32L , Mean Corpuscular Volume 85, Mean Corpuscular Hemoglobin 27, Mean Corpuscular Hemoglobin Concent 31L, Red Cell Distribution Width 15.2H, Platelet Count 425H, Mean Platelet Volume 9.3, Neutrophils (%) (Auto) 79H, Lymphocytes (%) (Auto) 11L , Monocytes (%) (Auto) 10, Eosinophils (%) (Auto) 0, Basophils (%) (Auto) 0, Neutrophils # (Auto) 17.5H, Lymphocytes # (Auto) 2.4, Monocytes # (Auto) 2.1H, Eosinophils # (Auto) 0.1, Basophils # (Auto) 0.1, Neutrophils % (Manual) 71, Lymphocytes % (Manual) 15, Monocytes % (Manual) 7, Eosinophils % (Manual) 0, Basophils % (Manual) 0, Band Neutrophils 7, Anisocytosis SLIGHT, Prothrombin Time 14.9H, INR Comment 1.1, Activated Partial Thromboplast Time 40H, Sodium Level 140, Potassium Level 3.1L, Chloride Level 98, Carbon Dioxide Level 30, Anion Gap 12, Blood Urea Nitrogen 3L, Creatinine 0.62, Estimat Glomerular Filtration Rate > 60, BUN/Creatinine Ratio 5, Glucose Level 117H, Lactic Acid Level 0.94, Calcium Level 8.5, Corrected Calcium 9.5, Total Bilirubin 0.3, Aspartate Amino Transf (AST/SGOT) 18, Alanine Aminotransferase (ALT/SGPT) 11, Alkaline Phosphatase 56, C-Reactive Protein High Sensitivity 24.52H, Total Protein 6.9, Albumin 2.8L 07/18/18 09:40: Urine Color YELLOW, Urine Clarity CLEAR, Urine pH 8, Urine Specific [place] 1.010L, Urine Protein NEGATIVE, Urine Glucose (UA) NEGATIVE, Urine Ketones 2+H, Urine Nitrite NEGATIVE, Urine Bilirubin NEGATIVE, Urine Urobilinogen NORMAL, Urine Leukocyte Esterase NEGATIVE, Urine RBC (Auto) 1+H, Urine RBC RARE, Urine WBC 0-2, Urine Squamous Epithelial Cells 2-5, Urine Crystals NONE, Urine Bacteria NEGATIVE, Urine Casts NONE, Urine Mucus NEGATIVE, Urine Culture Indicated NO Assessment/Plan Assessment/Plan Admission Diagonsis Pneumonia Sepsis Intrabdominal Abscess Admission Status: Inpatient Order (span 2 midnights) Reason for Inpatient Admission: Pt is going to need IV ABX for her pneumonia and to continue treatment of the abdominal abscess and she may need to go to the OR; all of which will take longer than 2 midnights Assessment/Plan Pneumonia Sepsis Intrabdominal Abscess Pt will be admitted with IV ABX, blood cultures pending, will order sputum culture, IV fluids, pain control, anti-emetics and can be on a clear liquid diet. I did discuss with the pt and her the 3 options 1) Treat medically and hopefully do 1 stage surgery as outpt 2) Diagnostic Laparoscopy with washout and drain placement, possible conversion to open 3) Straight open surgery with possible temporary Colostomy (I am still not convinced this is Diverticular could by Tubo-Ovarian abscess). She was told she will need to ambulate, use IS 10 x Q 1hour while awake and unfortunately just wait and hope her body starts fighting off infection better. If she gets worse will have to look at option 2 vs option 3. All questions answered to their satisfaction. MANNIE LOPEZ DO Jul 18, 2018 12:50
--- NOTE | 2018-07-18 12:51 | NUR ---
WATER GIVEN PER DR MCLAIN VERBAL ORDER
[2018-07-18] MEDS ORDERED: morphine INJ 10 MG/ML 1ML (SYR OR VIAL) ONE (12:57)
--- NOTE | 2018-07-18 12:58 | NUR ---
PATIENT RECENTLY DISCHARGED, REVIEWED MED REC MEDS WERE ORDERED AT THAT TIME.
--- NOTE | 2018-07-18 13:07 | NUR ---
TEMP 102.8 ET NOTIFIED..
[2018-07-18] MEDS ORDERED: ACETAMINOPHEN 500 MG TAB (TYLENOL) PO ONE (13:15)
--- NOTE | 2018-07-18 13:40 | NUR ---
ATTEMPT TO CALL 4TH FLOOR FOR REPORT ET NO ANSWER.
--- NOTE | 2018-07-18 13:46 | NUR ---
REPORT TAKEN FROM Marta SLATER RN AT THIS TIME. THIS RN WILL ASSUME CARE OF THIS PATIENT WHEN SHE ARRIVES TO 4TH FLOOR.
[2018-07-18 14:45] VITALS: BP 141/60
--- NOTE | 2018-07-18 15:08 | NUR ---
PERCUTANEOUS DRAIN FLUSHED WITH 50 MLS OF NORMAL SALINE PER DR. MCLAIN'S ORDERS. THIS RN WILL CONT TO MONITOR THIS PATIENT AND THE PATENCY OF THIS DRAIN.
[2018-07-18] MEDS: LACTATED RINGERS 1,000 ML IV SCH ×2 (15:26→23:04)
[2018-07-18] MEDS ORDERED: FLU QUADRIvalent (5+ YOA) 2018-2019 (AFLURIA) 0.5 ML IM ONE (15:30)
[2018-07-18] MEDS ORDERED: CATHETER FLUSH 10 ML SYR IV PRN (15:30)
[2018-07-18 16:00] VITALS: BP 141/60
[2018-07-18] MEDS: PIPERACILLIN/TAZOBACTAM (BULK) 4.5 GM in NS (IVPB) 100 ML IV SCH (17:40)
[2018-07-18 18:22] VITALS: BP 139/75
[2018-07-18] MEDS ORDERED: RT-ALBUTEROL/IPRATROPIUM 3 ML (DUONEB) VIAL INH PRN (18:45)
[2018-07-18] MEDS: RT-ALBUTEROL/IPRATROPIUM 3 ML (DUONEB) VIAL INH SCH (19:38)
[2018-07-18 20:01] VITALS: BP 120/56
[2018-07-18] MEDS: morphine INJ 4 MG/ML 1 ML (VIAL/SYRINGE) IV PRN (22:23)
[2018-07-19] VITALS (7 sets, daily range): BP systolic 105–127; BP diastolic 53–81
[2018-07-19] MEDS: PIPERACILLIN/TAZOBACTAM (BULK) 4.5 GM in NS (IVPB) 100 ML IV SCH ×3 (01:05→17:10)
[2018-07-19] MEDS: morphine INJ 4 MG/ML 1 ML (VIAL/SYRINGE) IV PRN (03:53)
[2018-07-19] MEDS: LACTATED RINGERS 1,000 ML IV SCH ×2 (04:41→16:04)
[2018-07-19 05:04] LABS: BASOPHILS % (AUTO) 0 % (0-10); EOSINOPHILS # (AUTO) 0.2 10^3/uL (0.0-0.3); EOSINOPHILS % (AUTO) 1 % (0-10); HEMATOCRIT 25 % (35-52); LYMPHOCYTES # (AUTO) 2.4 X 10^3 (1.0-4.0); LYMPHOCYTES % (AUTO) 17 % (12-44); MEAN CORPUSCULAR HEMOGLOBIN 27 PG (25-34); MEAN CORPUSCULAR HGB CONC 32 G/DL (32-36); MEAN CORPUSCULAR VOLUME 85 FL (80-99); MEAN PLATELET VOLUME 9.4 FL (7.4-10.4); MONOCYTES # (AUTO) 1.3 X 10^3 (0.0-1.0); MONOCYTES % (AUTO) 9 % (0-12); NEUTROPHILS # (AUTO) 10.5 X 10^3 (1.8-7.8); NEUTROPHILS % (AUTO) 73 % (42-75); PLATELET COUNT 396 10^3/uL (130-400); RED CELL DISTRIBUTION WIDTH 15.4 % (10.0-14.5); WHITE BLOOD COUNT 14.3 10^3/uL (4.3-11.0)
[2018-07-19 05:21] LABS: ALANINE AMINOTRANSFERASE 8 U/L (0-55); ALBUMIN 2.3 GM/DL (3.2-4.5); ALKALINE PHOSPHATASE 48 U/L (40-136); BILIRUBIN,TOTAL 0.3 MG/DL (0.1-1.0); BUN/CREATININE RATIO 7; CALCIUM 8.1 MG/DL (8.5-10.1); CARBON DIOXIDE 27 MMOL/L (21-32); CHLORIDE 101 MMOL/L (98-107); CREATININE SERUM 0.57 MG/DL (0.60-1.30); GFR ESTIMATED > 60; GLUCOSE 99 MG/DL (70-105); POTASSIUM 3.1 MMOL/L (3.6-5.0); SODIUM 138 MMOL/L (135-145)
[2018-07-19] MEDS: RT-ALBUTEROL/IPRATROPIUM 3 ML (DUONEB) VIAL INH SCH ×4 (07:44→19:33)
--- NOTE | 2018-07-19 11:45 | Diagnostic Imaging Report ---
EXAMINATION: CHEST (PA AND LATERAL) CLINICAL INDICATION: 42-year-old female, shortness of breath, pneumonia. COMPARISON: CT abdomen and pelvis July 18, 2018. Chest radiograph July 18, 2018. FINDINGS: Heart size and mediastinal contours are unremarkable. There are streaky opacities in the left lung base. There is no identified sizable pleural effusion. There is note however of small pleural effusions on prior CT abdomen and pelvis. IMPRESSION: 1. Linear opacities in the left lung base which may relate to atelectasis and/or infiltrate. 2. Previously noted small pleural effusion seen on prior CT abdomen of July 18, 2018 are not well appreciated radiographically. Dictated by: Dictated on workstation # [id number]
[2018-07-19] MEDS: fentaNYL INJECTION 100 MCG/2 ML AMP IVP PRN ×2 (15:11→21:01)
--- NOTE | 2018-07-19 21:09 | Progress Note ---
Subjective Date Seen by a Provider: Jul 19, 2018 Time Seen by a Provider: 09:41 Subjective/Events-last exam a she has been ambulating. Patient states that pain in the left lower quadrant abdomen is improved. She states she is not having nausea or vomiting. Patient feeling better than yesterday. She denies any fever sweats chills shortness of breath or chest pain. Focused Exam Lactate Level 07/18/18 09:05: Lactic Acid Level 0.94 Objective Exam Vital Signs Date Time Temp Pulse Resp B/P (MAP) Pulse Ox O2 Delivery O2 Flow Rate FiO2 07/19/18 19:33 95 Nasal Cannula 1.00 07/19/18 19:31 98.5 77 16 112/58 (76) 96 Nasal Cannula 1.00 07/19/18 16:08 97.7 82 20 126/60 (82) 95 Nasal Cannula 1.00 07/19/18 15:16 86 Room Air 07/19/18 12:00 99.2 84 20 124/60 (81) 93 Room Air 07/19/18 11:22 93 Nasal Cannula 1.00 07/19/18 08:00 97.3 88 20 105/53 (70) 96 Nasal Cannula 1.00 07/19/18 08:00 95 Nasal Cannula 2.00 07/19/18 07:57 Nasal Cannula 1.00 07/19/18 07:44 96 Nasal Cannula 2.00 07/19/18 04:45 99.0 84 22 111/54 (73) 97 Nasal Cannula 2.00 07/19/18 00:30 100.1 83 24 127/81 (96) 96 Nasal Cannula 2.00 I & O 07/19/18 07:00 Intake Total 2880 ml Output Total 1610 ml Balance 1270 ml Capillary Refill : Less Than 3 Seconds General Appearance: No Apparent Distress, Obese HEENT: PERRL/EOMI, Pharynx Normal; No Pale Conjunctivae (L), No Pale Conjunctivae (R) Neck: Full Range of Motion, Supple; No Thyromegaly Respiratory: Chest Non Tender, No Accessory Muscle Use, Crackles (at bases), Decreased Breath Sounds (at bases) Cardiovascular: Regular Rate, Rhythm, No Edema, Normal Peripheral Pulses Gastrointestinal: tenderness (left lower quadrant no guarding or rebounding, drain in left lower quadrant brownish purulent material in drain) Extremity: Normal Capillary Refill, Normal Inspection, Normal Range of Motion, Non Tender, No Calf Tenderness, No Pedal Edema Neurologic/Psychiatric: Alert, Oriented x3, No Motor/Sensory Deficits, Normal Mood/Affect, 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 Norm as Tested Skin: Normal Color, Warm/Dry Lymphatic: No Adenopathy Results Lab Laboratory Tests 07/19/18 04:50: White Blood Count 14.3H, Red Blood Count 2.99L, Hemoglobin 8.0L, Hematocrit 25L , Mean Corpuscular Volume 85, Mean Corpuscular Hemoglobin 27, Mean Corpuscular Hemoglobin Concent 32, Red Cell Distribution Width 15.4H, Platelet Count 396, Mean Platelet Volume 9.4, Neutrophils (%) (Auto) 73, Lymphocytes (%) (Auto) 17, Monocytes (%) (Auto) 9, Eosinophils (%) (Auto) 1, Basophils (%) (Auto) 0, Neutrophils # (Auto) 10.5H, Lymphocytes # (Auto) 2.4, Monocytes # (Auto) 1.3H, Eosinophils # (Auto) 0.2, Basophils # (Auto) 0.0, Sodium Level 138, Potassium Level 3.1L, Chloride Level 101, Carbon Dioxide Level 27, Anion Gap 10, Blood Urea Nitrogen 4L, Creatinine 0.57L, Estimat Glomerular Filtration Rate > 60, BUN /Creatinine Ratio 7, Glucose Level 99, Calcium Level 8.1L, Corrected Calcium 9.5 , Total Bilirubin 0.3, Aspartate Amino Transf (AST/SGOT) 20, Alanine Aminotransferase (ALT/SGPT) 8, Alkaline Phosphatase 48, Total Protein 6.0L, Albumin 2.3L Microbiology 07/18/18 Blood Culture - Preliminary, Resulted No growth 07/18/18 Urine Culture - Final, Complete See Report Assessment/Plan Assessment/Plan Assessment/Plan Pneumonia Sepsis Intrabdominal Abscess patient feeling better today. Her white blood cell count is decreasing. Pain is decreasing. Patient ambulating. Patient to continue with current care plan. Clinical Quality Measures DVT/VTE Risk/Contraindication: Risk Factor Score Per Nursin RFS Level Per Nursing on Admit: 4+=Very High TARUN WHITESIDE DO Jul 19, 2018 21:09
[2018-07-20] MEDS: LACTATED RINGERS 1,000 ML IV SCH ×4 (01:53→19:47)
[2018-07-20] MEDS: PIPERACILLIN/TAZOBACTAM (BULK) 4.5 GM in NS (IVPB) 100 ML IV SCH ×3 (01:53→18:23)
[2018-07-20 07:04] LABS: HEMOGLOBIN 7.6 G/DL (11.5-16.0); MEAN PLATELET VOLUME 9.5 FL (7.4-10.4); RED CELL DISTRIBUTION WIDTH 15.2 % (10.0-14.5); WHITE BLOOD COUNT 9.6 10^3/uL (4.3-11.0)
[2018-07-20 07:24] LABS: BUN/CREATININE RATIO 7; CALCIUM 8.1 MG/DL (8.5-10.1); CARBON DIOXIDE 27 MMOL/L (21-32); CHLORIDE 102 MMOL/L (98-107); CREATININE SERUM 0.54 MG/DL (0.60-1.30); GFR ESTIMATED > 60; GLUCOSE 91 MG/DL (70-105); POTASSIUM 3.2 MMOL/L (3.6-5.0); SODIUM 140 MMOL/L (135-145)
[2018-07-20] MEDS: RT-ALBUTEROL/IPRATROPIUM 3 ML (DUONEB) VIAL INH SCH ×4 (07:28→19:26)
[2018-07-20] MEDS: fentaNYL INJECTION 100 MCG/2 ML AMP IVP PRN ×2 (07:50→19:47)
[2018-07-20 08:00] VITALS: BP 116/53
--- NOTE | 2018-07-20 08:00 | NUR ---
FENTANYL 50 IV PRIOR TO DRAIN FLUSH. DRAIN LEFT ABD FLUSHED WITH 50CC NS. VINICIO WELL.
--- NOTE | 2018-07-20 12:05 | Progress Note ---
Subjective Date Seen by a Provider: Jul 20, 2018 Time Seen by a Provider: 12:03 Subjective/Events-last exam Patient feeling little better than yesterday. Drain in place. WBC decreasing. Denies n/v fever sweats chills shortness of breath or chest pain. Focused Exam Lactate Level 07/18/18 09:05: Lactic Acid Level 0.94 Objective Exam Vital Signs Date Time Temp Pulse Resp B/P (MAP) Pulse Ox O2 Delivery O2 Flow Rate FiO2 07/20/18 11:07 90 Nasal Cannula 1.00 07/20/18 08:00 92 Nasal Cannula 1.00 07/20/18 08:00 98.3 88 16 116/53 (74) 92 Nasal Cannula 1.00 07/20/18 07:29 92 Nasal Cannula 1.00 07/19/18 23:47 98.7 76 18 118/55 (76) 96 Nasal Cannula 1.00 07/19/18 20:00 96 Nasal Cannula 1.00 07/19/18 19:33 95 Nasal Cannula 1.00 07/19/18 19:31 98.5 77 16 112/58 (76) 96 Nasal Cannula 1.00 07/19/18 16:08 97.7 82 20 126/60 (82) 95 Nasal Cannula 1.00 07/19/18 15:16 86 Room Air I & O 07/20/18 07:00 Intake Total 4080 ml Output Total 165 ml Balance 3915 ml Capillary Refill : Less Than 3 SecondsLess Than 3 Seconds General Appearance: No Apparent Distress, Obese HEENT: PERRL/EOMI, Pharynx Normal; No Pale Conjunctivae (L), No Pale Conjunctivae (R) Neck: Full Range of Motion, Supple; No Thyromegaly Respiratory: Chest Non Tender, No Accessory Muscle Use, Crackles (at bases), Decreased Breath Sounds (at bases) Cardiovascular: Regular Rate, Rhythm, No Edema, Normal Peripheral Pulses Gastrointestinal: tenderness (left lower quadrant no guarding or rebounding, drain in left lower quadrant brownish purulent material in drain) Extremity: Normal Capillary Refill, Normal Inspection, Normal Range of Motion, Non Tender, No Calf Tenderness, No Pedal Edema Neurologic/Psychiatric: Alert, Oriented x3, No Motor/Sensory Deficits, Normal Mood/Affect, wringer and setter II-XII Norm as Tested Skin: Normal Color, Warm/Dry Lymphatic: No Adenopathy Results Lab Laboratory Tests 07/20/18 06:05: White Blood Count 9.6, Red Blood Count 2.94L, Hemoglobin 7.6L, Hematocrit 25L, Mean Corpuscular Volume 86, Mean Corpuscular Hemoglobin 26, Mean Corpuscular Hemoglobin Concent 30L, Red Cell Distribution Width 15.2H, Platelet Count 435H, Mean Platelet Volume 9.5, Sodium Level 140, Potassium Level 3.2L, Chloride Level 102, Carbon Dioxide Level 27, Anion Gap 11, Blood Urea Nitrogen 4L, Creatinine 0.54L, Estimat Glomerular Filtration Rate > 60, BUN/Creatinine Ratio 7, Glucose Level 91, Calcium Level 8.1L Microbiology 07/18/18 Blood Culture - Preliminary, Resulted No growth 07/18/18 Urine Culture - Final, Complete See Report Assessment/Plan Assessment/Plan Assessment/Plan Pneumonia Sepsis Intrabdominal Abscess still feels improving. Her white blood cell count is decreasing. Pain is decreasing. Patient ambulating. Patient to continue with current care plan. No changes at this time. Clinical Quality Measures DVT/VTE Risk/Contraindication: Risk Factor Score Per Nursin RFS Level Per Nursing on Admit: 4+=Very High TARUN WHITESIDE DO Jul 20, 2018 12:05
[2018-07-20 16:09] VITALS: BP 126/72
[2018-07-20 23:41] VITALS: BP 135/83
[2018-07-21] MEDS: PIPERACILLIN/TAZOBACTAM (BULK) 4.5 GM in NS (IVPB) 100 ML IV SCH ×3 (01:38→17:08)
[2018-07-21] MEDS: LACTATED RINGERS 1,000 ML IV SCH ×3 (04:07→16:31)
[2018-07-21] MEDS: fentaNYL INJECTION 100 MCG/2 ML AMP IVP PRN (06:36)
[2018-07-21] MEDS: RT-ALBUTEROL/IPRATROPIUM 3 ML (DUONEB) VIAL INH SCH ×4 (07:37→21:06)
[2018-07-21 08:00] VITALS: BP 128/67
--- NOTE | 2018-07-21 13:39 | NUR ---
CM/SS, initial visit to explore post hospital needs. Patient was IP 07/11-07/16/18 and was readmitted 07/18/18. Her plan is to return home when medically released where she resides with her 18 year old and 3 year old. 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 HHC: Recommend HHC at discharge to monitor catheter drain and recovery from intra-abdominal abscess infection. Patient is uninsured, she understands that [facility] would be best option for services due to inability to pay. UNINSURED: Patient has completed a financial assistance application with [employer]. Continue intermittent review to finalize patient appropriate services.
[2018-07-21 16:00] VITALS: BP 152/70
--- NOTE | 2018-07-21 17:11 | NUR ---
CHANGED TO HL ORDERED.
[2018-07-21] MEDS ORDERED: NS IV 500 ML 500 ML IV SCH (17:12)
[2018-07-21] MEDS ORDERED: diphenhydrAMINE 50 MG/ML INJ (BENADRYL) IV PRN (17:15)
[2018-07-21] MEDS ORDERED: IRON DEXTRAN INJECTION 25 MG in NS (IVPB) 5.75 ML IV ONE (17:15)
[2018-07-21] MEDS ORDERED: EPINEPHrine INJECTION 1 MG/ML AMP IM PRN (17:15)
[2018-07-21] MEDS ORDERED: HYDROCORTISONE 100 MG/2 ML (Solu-CORTEF) VIAL IV PRN (17:15)
[2018-07-21] MEDS ORDERED: RT-ALBUTEROL SULF 2.5 MG/3 ML PRE-MIX VIAL IH PRN (17:15)
--- NOTE | 2018-07-21 17:24 | Progress Note ---
Subjective Time Seen by a Provider: 16:55 Subjective/Events-last exam Pt seen and examined, states she is hungry and hates the drain. She reports that when they try to flush it, nothing comes out and it hurts. She also says that there is still fluid leaking around the drain. She is having loose BM's; "everytime I stand up to walk". Denies SOB. Nurse states pt is refusing to walk and get up to go to the bathroom. Review of Systems General: No Chills, No Night Sweats Pulmonary: No Dyspnea, No Cough Cardiovascular: No: Chest Pain, Palpitations Gastrointestinal: Abdominal Pain; No: Nausea, Vomiting Genitourinary: No Dysuria Objective Exam Vital Signs Date Time Temp Pulse Resp B/P (MAP) Pulse Ox O2 Delivery O2 Flow Rate FiO2 07/21/18 15:17 93 Room Air 07/21/18 09:02 92 Nasal Cannula 1.00 07/21/18 08:00 98.6 84 20 128/67 (87) 91 Room Air 07/21/18 07:37 92 Room Air 07/20/18 23:41 99.0 86 16 135/83 (100) 97 Room Air 07/20/18 20:00 Room Air 07/20/18 19:26 Room Air I & O 07/21/18 07:00 Intake Total 4990 ml Output Total 40 ml Balance 4950 ml Capillary Refill : Less Than 3 SecondsLess Than 3 Seconds General Appearance: No Apparent Distress, Obese HEENT: PERRL/EOMI, Pharynx Normal; No Pale Conjunctivae (L), No Pale Conjunctivae (R) Neck: Full Range of Motion, Supple; No Thyromegaly Respiratory: Chest Non Tender, No Accessory Muscle Use, Crackles (at bases), Decreased Breath Sounds (at bases) Cardiovascular: Regular Rate, Rhythm, No Edema, Normal Peripheral Pulses Gastrointestinal: tenderness (left lower quadrant no guarding or rebounding, drain in left lower quadrant brownish purulent material in drain) Extremity: Normal Capillary Refill, No Calf Tenderness, No Pedal Edema Neurologic/Psychiatric: Alert, Oriented x3, Normal Mood/Affect, 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 Patient was told she must start ambulating more. Will replace K+ and do iron infusion. Pt probably needs colonoscopy' prior to any surgery. I again talked to her about current plan vs Diagnostic Lap with washout vs straight to open surgery with probable temporary colostomy. With anemia and hypokalemia I think it is even more important to get her better prior to any surgical plan and she agrees. Hopefully we can get her home in the next couple of days and then maybe repeat CT next week. Clinical Quality Measures DVT/VTE Risk/Contraindication: Risk Factor Score Per Nursin RFS Level Per Nursing on Admit: 4+=Very High CAMMIE MCLAIN DO Jul 21, 2018 17:24
--- NOTE | 2018-07-21 17:25 | NUR ---
NEW ORDER FOR INFED INFUSION. IV ZOSYN INFUSING AT THIS TIME. WILL PASS TO NEXT SHIFT FOR ADMINISTRATION.
[2018-07-21] MEDS ORDERED: KCL 20 MEQ POWDER FOR ORAL SOLUTION PO SCH (17:27)
[2018-07-21] MEDS ORDERED: IRON DEXTRAN INJECTION 1,000 MG in NS (IVPB) 250 ML IV NR (17:30)
--- NOTE | 2018-07-21 17:47 | Diagnostic Imaging Report ---
INDICATION: Pneumonia. FINDINGS: Two views of the chest show normal heart size and vascularity. There is basilar discoid atelectasis. No alveolar infiltrate is seen. There is no effusion or pneumothorax. IMPRESSION: There is basilar discoid atelectasis with improved aeration of the lung bases since 07/19/2018. Dictated by: Dictated on workstation # [id number]
[2018-07-21] MEDS ORDERED: HYDROcodone/APAP 5 MG/325 MG (LORTAB) TAB ONE (19:57)
[2018-07-21] MEDS: KCL 20 MEQ TAB (K-DUR) PO SCH (20:00)
[2018-07-21] MEDS: HYDROcodone/APAP 5 MG/325 MG (LORTAB) TAB PO PRN (20:01)
[2018-07-21 23:59] VITALS: BP 132/83
[2018-07-22] MEDS: PIPERACILLIN/TAZOBACTAM (BULK) 4.5 GM in NS (IVPB) 100 ML IV SCH ×2 (02:21→09:34)
[2018-07-22 08:00] VITALS: BP 136/63
[2018-07-22] MEDS: RT-ALBUTEROL/IPRATROPIUM 3 ML (DUONEB) VIAL INH SCH ×3 (08:13→14:44)
[2018-07-22] MEDS: KCL 20 MEQ TAB (K-DUR) PO SCH (09:33)
--- NOTE | 2018-07-22 14:15 | NUR ---
THIS RN WITH ASSISTANCE FROM Leonidas DE LA ROSA RN FLUSHED THE LEFT LOW QUADRANT DRAIN ORDERED BY THE SURGEON.
[2018-07-22] MEDS: HYDROcodone/APAP 5 MG/325 MG (LORTAB) TAB PO PRN (14:35)
--- NOTE | 2018-07-22 15:20 | Discharge Inst-Surgical ---
Discharge Inst-Surgical Depart Medication/Instructions New, Converted or Re-Newed RX: Other (Use medications already given.) Patient Instructions Follow up Appt: Make appointment for 1 week. [phone] Instructions: No lifting greater than 20 pounds. No strenuous activity. Use incentive spirometer at home as directed. No Smoking Symptoms to Report: Appetite Changes, Extremity Discoloration, Numbness/Tingling, Swelling Increased , Bleeding Excessive, Eyesight Changes, Pain Increased, Urine Color Change, Constipation(Persistent), Fever over 101 degree F, Pain/Pressure in chest, Urinating Difficulty, Cough Up/Vomit Blood, Heart Beat Irreg/Pounding, Pain/ Pressure in jaw, Cramps in feet or legs, Lightheadedness, Pain/Pressure in shoulder, Diarrhea(Persistent), Memory Changes Suddenly, Questions/Concerns, Weight gain consecutive days, Dizziness/Fainting, Nausea/Vomiting, Shortness of Breath, Weight gain over 2 pounds If questions or concerns contact your physician Or seek help at emergency department. Activity Activity as Tolerated: Yes Driving Instructions: No Driving/Refer to Diet Discharge Diet: Low Residue, Other Diet (avoid red meat and increase fiber) Diet After 24 Hours: Clear Liquid if Nauseous If Any Problems/Questions/Issu: Contact Your Physician, Go to Emergency Room Skin/Wound Care Infection Signs and Symptoms: Increased Drainage, Skin Itchy or Has a Rash, Increased Swelling, Temperature Above 101 F Bathing Instructions: CAMMIE Cruz DO Jul 22, 2018 15:20
[2018-07-22 16:45] VITALS: BP 136/63
== END 2018-07-22 16:45 | disposition home or self-care (01) | DRG 871 ==
LOC: EDUNIT# 08:08 → ER 08:10 → 4TH 12:24
PROVIDERS: ADMIT Surgery; ATTEND Surgery
DX: A41.9 Sepsis, unspecified organism (principal); K65.1 Peritoneal abscess; J18.9 Pneumonia, unspecified organism; Z68.43 Body mass index [BMI] 50.0-59.9, adult; E66.9 Obesity, unspecified; F17.210 Nicotine dependence, cigarettes, uncomplicated; D64.9 Anemia, unspecified; E87.6 Hypokalemia; Z87.442 Personal history of urinary calculi
CPT/HCPCS: 36415; 71045; 71046; 74177; 80048; 80053; 81000; 83605; 85007; 85025; 85027; 85610; 85730; 86141; 87040; 87088; 94640; 94664; 94760; 96374; 96375

== ENCOUNTER 2018-08-25 11:48 | Outpatient (RCR) | payer OTHER ==
[2018-08-05 09:40] VITALS: BP 138/78
[2018-08-12 10:00] VITALS: BP 138/80
[2018-08-19 12:40] VITALS: BP 116/57
[~2018-08-25] VITALS: Ht 154.9 cm; Wt 128.5 kg
[2018-08-25 12:21] VITALS: BP 139/65
--- NOTE | 2018-09-01 14:43 | NUR ---
THIS RN PHONED PATIENT TO SEE IF WAS STILL COMING IN TODAY FOR DRESSING CHANGE. PATIENT INFORMED Shanta MCLAIN PULLED DRAIN AND NO MORE DRESSING CHANGES HERE AND THAT SHE IS NOW MANAGING WHATS LEFT.
[2018-09-12] MEDS ORDERED: ACHD5005 PO (11:11)
[2018-10-02] MEDS ORDERED: TAMS0.4C98 PO (23:27)
[2018-10-02] MEDS ORDERED: KETO10TA PO (23:27)
[2018-10-02] MEDS ORDERED: ONDA4TAB11 PO (23:27)
[2018-10-02] MEDS ORDERED: NITR-65 PO (23:27)
== END 2018-11-03 | disposition home or self-care (01) ==
LOC: SDC 11:48
PROVIDERS: ATTEND Surgery
DX: T81.49XA Infection following a procedure, other surgical site, initial encounter (principal)
CPT/HCPCS: 99212

== ENCOUNTER 2018-09-04 05:55 | Outpatient (CLI) | payer OTHER ==
[~2018-09-04] VITALS: Ht 154.9 cm; Wt 122.0 kg
== END 2018-09-04 13:21 | disposition home or self-care (01) ==
LOC: PREOP 05:55
PROVIDERS: ATTEND Surgery
DX: Z01.818 Encounter for other preprocedural examination (principal)

== ENCOUNTER 2018-09-10 07:06 | Inpatient (IN) | payer OTHER ==
[~2018-09-10] VITALS: Ht 154.9 cm; Wt 119.0 kg
[2018-09-10] VITALS (10 sets, daily range): BP systolic 119–151; BP diastolic 54–89
[2018-09-10] MEDS ORDERED: BUP/EPI 0.5% 1:200,000 (SENSORCAINE) 30 ML VIAL ONE (07:14)
[2018-09-10] MEDS ORDERED: LIDOCAINE 1% INJ 20 ML 20 ML VIAL ONE (07:14)
--- OUTSIDE RECORDS SUMMARY | 2018-09-10 07:27 | XMS REPORT ---
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 Active 964052550 Problem Gestational diabetes mellitus, delivered 648.81 Active 49243806 Problem Polydipsia R63.1 Active 00789858 Problem Morbid (severe) obesity due to excess calories E66.01 Active 07076048633863 Problem Other obesity due to excess calories E66.09 Active 29412304852682 Problem Body mass index (BMI) of 50-59.9 in adult Z68.43 Active 934916975 Problem History of gestational diabetes Z86.32 Active 495701195 Problem Polyphagia R63.2 Active 262065440 ALLERGIES No Information ENCOUNTERS Encounter Location Date Diagnosis [place] [id number] [place] [id number] Jun, Morbid obesity E66.01 and Acute cystitis with hematuria N30.01 [place] [id number] [place] [id number] Jun, Strep pharyngitis J02.0 ; Sore throat J02.9 ; Fever, unspecified R50.9 and Morbid obesity E66.01 [facility] [address] [place] [address] Apr, Sore throat J02.9 and Acute nasopharyngitis J00 [facility] [id number] [place] [address] Feb, Viral upper respiratory tract infection J06.9 and BMI 50.0-59.9, adult Z68.[address] [id number] August, Low sodium levels E87.1 and Lipid screening Z13.220 [facility] [address] [facility] [id number] [id number] August, 2018 Polydipsia R63.1 ; History of gestational diabetes Z86.32 ; Morbid (severe) obesity due to excess calories E66.01 ; Body mass index (BMI) of 50-59.9 in adult Z68.43 ; Polyphagia R63.2 ; Frequent urination R35.0 and BMI 50.0-59.9, adult Z68.[address] [id number] [id number] Jun, Strep throat J02.0 and Cough R05 [facility] [place] [id number] [place] [phone] 07 May, 2018 BMI 50.0-59.9, adult Z68.43 ; Sore throat J02.9 and Strep throat J02.0 [facility] [address] [facility] [id number] [id number] Jan, 2017 Well woman exam with routine gynecological exam Z01.419 ; Screening breast examination Z12.31 ; High risk sexual behavior Z72.51 ; Other obesity due to excess calories E66.09 ; Body mass index (BMI) of 50-59.9 in adult Z68.43 ; Tobacco abuse Z72.0 and Tobacco abuse counseling Z71.6 [facility] [address] [place] [address] May, Sore throat J02.9 [place] [address] [id number] [place] [address] May, [place] [address] [place] [id number] [place] [address] Feb, [place] [address] [address] Jun, [place] [address] [place] [id number] [place] [address] Apr, Ankle pain, left M25.572 [facility] [address] [place] [address] 14 Apr, 2015 [facility] [address] [id number] [place] [address] Apr, Ankle pain, left M25.572 [place] [address] [id number] [place] [address] 21 Dec, 2014 ASCUS with positive high risk HPV cervical 795.01 [place] [address] [place] [id number] [place] [phone] 16 Dec, 2014 Gestational diabetes mellitus, delivered 648.81 [place] [address] [address] 14 Dec, 2014 Routine follow-up V24.2 ; General counselling and advice on contraception V25.09 and Gestational diabetes mellitus, delivered 648.81 [place] [address] [address] Nov, Oligohydramnios in second trimester 658.03 ; Rupture, membranes, premature 658.10 ; Gestational diabetes 648.80 and Supervision of high-risk of elderly multigravida V23.82 [place] [address] [place] [id number] [place] [address] Oct, Supervision of high-risk of elderly multigravida V23.82 and premature rupture of membranes (PPROM) with unknown onset of labor 658.10 [place] [address] [place] [id number] [place] [address] Oct, Supervision of high-risk of elderly multigravida V23.82 and premature rupture of membranes (PPROM) with unknown onset of labor 658.10 [place] [address] [place] [id number] [place] [address] Oct, Supervision of high-risk of elderly multigravida V23.82 ; TDAP DX V06.1 ; Oligohydramnios in second trimester 658.03 ; premature rupture of membranes (PPROM) with unknown onset of labor 658.10 and Gestational diabetes 648.80 [place] [address] [address] Oct, Oligohydramnios in second trimester 658.03 ; premature rupture of membranes (PPROM) with unknown onset of labor 658.10 ; Supervision of high- risk of elderly multigravida V23.82 and Gestational diabetes 648.80 [place] [address] [place] [address] Sep, [place] [address] [place] [id number] [place] [address] Sep, Abnormal glucose tolerance in 648.80 [place] [address] [place] [id number] [place] [address] Sep, Oligohydramnios in second trimester 658.03 ; Rupture, membranes, premature 658.10 and Supervision of high-risk of elderly multigravida V23.82 [place] [address] [place] [address] Sep, [place] [address] [place] [id number] [place] [address] Sep, [facility] [address] [address] Sep, [place] [address] [place] [id number] [place] [address] Sep, [facility] [address] [place] [address] Sep, Supervision of high-risk of elderly multigravida V23.82 ; Oligohydramnios in second trimester 658.03 and premature rupture of membranes (PPROM) with unknown onset of labor 658.10 [place] [address] [address] August, Supervision of high-risk of elderly multigravida V23.82 [facility] [place] [facility] [address] [id number] [place] [address] 14 Jul, 2014 [facility] [place] [facility] [address] [id number] [place] [address] Jul, [facility] [place] [facility] [address] [id number] [place] [address] 30 Jun, 2014 [facility] [place] [facility] [address] [id number] [place] [address] Jun, [facility] [place] [facility] [address] [id number] [place] [address] Jun, [facility] [place] [facility] [address] [id number] [place] [address] Jun, [facility] [place] [facility] [address] [facility] [id number] [place] [address] Jun, [facility] [place] [facility] [address] [facility] [id number] [place] [address] Jun, [facility] [place] [facility] [address] [id number] [place] [address] Jun, [facility] [place] [facility] [address] [facility] [id number] [place] [address] Jun, [facility] [place] [facility] [address] [id number] [place] [address] Jun, [facility] [place] [facility] [address] [id number] [address] May, [facility] [place] [facility] [address] [id number] [place] [address] May, [facility] [place] [facility] [address] [id number] [address] May, [facility] [place] [facility] [address] [facility] [id number] [place] [address] May, [facility] [place] [facility] [address] [facility] [id number] [address] May, 2014 [facility] [address] [facility] [id number] [place] [address] May, 2014 [facility] [place] [facility] [address] [facility] [id number] [place] [address] May, 2014 [facility] [place] [facility] [address] [facility] [id number] [place] [address] May, 2014 [facility] [place] [facility] [address] [facility] [id number] [place] [address] May, 2014 [facility] [place] [facility] [address] [facility] [id number] [place] [address] May, 2014 [facility] [place] [facility] [address] [facility] [id number] [place] [address] May, 2014 [facility] [place] [facility] [address] [place] [id number] [address] May, 2014 [facility] [address] [place] [id number] [address] May, [facility] [id number] [id number] Apr, [facility] [address] [facility] [id number] [address] Apr, [facility] [address] [id number] [id number] Nov, [facility] [address] [id number] [id number] Apr, [facility] [address] [facility] [id number][place] [address] Apr, [facility] [place] [facility] [address] [facility] [id number] [address] Jan, [facility] [place] [facility] [address] [facility] [id number] [address] Jan, [facility] [address] [facility] [id number][place] [id number] Jan, [facility] [address] [place] [address] [id number] [id number] Dec, [facility] [address] [place] [address] [id number] [id number] Nov, [facility] [address] [place] [address] [id number] [id number] Oct, [facility] [address] [address] Mar, [facility] [address] [address] Mar, [facility] [address] [address] Mar, [facility] [address] [place] [id number], [place] [address] Sep, [facility] [address] [address] May, [facility] [address], [place] [address] Mar, [facility] [address] [address] May, IMMUNIZATIONS No Known Immunizations SOCIAL HISTORY Never Assessed REASON FOR VISIT [facility] [place] VITAL SIGNS MEDICATIONS Medication Instructions Dosage Frequency Start Date End Date Duration Status Pyridium 100 mg 1 tablet by Oral route 3 times per day for 3 day(s) Jan, Active Bactrim DS 800-160 mg 1 tablet by Oral route 2 times per day for 7 day(s) Jan, Active Macrobid 100 mg take 1 capsule by Oral route 2 times per day with food Jun, Active Promethazine-Codeine 6.25-10 mg/5 mL 5 mL by Oral route every 8 hoursPRNsevere cough Apr, Active RESULTS No Results PROCEDURES No Known procedures INSTRUCTIONS MEDICATIONS ADMINISTERED No Known Medications MEDICAL (GENERAL) HISTORY Type Description Date Medical History hx of Gestational DM Surgical History tubal ligation Surgical History Kidney stones 2006 Hospitalization History child Hospitalization History flu with tiago [facility]s
[2018-09-10] MEDS ORDERED: metroNIDAZOLE 500MG/100ML IVPB 100 ML IV ONE (07:30)
[2018-09-10] MEDS ORDERED: ceFAZolin 2 GM/50 ML NS 50 ML IV ONE (07:30)
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
[2018-09-10 07:54] LABS: BASOPHILS % (AUTO) 0 % (0-10); EOSINOPHILS # (AUTO) 0.2 10^3/uL (0.0-0.3); EOSINOPHILS % (AUTO) 2 % (0-10); HEMATOCRIT 41 % (35-52); HEMOGLOBIN 13.2 G/DL (11.5-16.0); LYMPHOCYTES # (AUTO) 2.4 X 10^3 (1.0-4.0); LYMPHOCYTES % (AUTO) 26 % (12-44); MEAN CORPUSCULAR HEMOGLOBIN 27 PG (25-34); MEAN CORPUSCULAR HGB CONC 32 G/DL (32-36); MEAN CORPUSCULAR VOLUME 84 FL (80-99); MEAN PLATELET VOLUME 9.5 FL (7.4-10.4); MONOCYTES # (AUTO) 0.5 X 10^3 (0.0-1.0); MONOCYTES % (AUTO) 6 % (0-12); NEUTROPHILS # (AUTO) 6.1 X 10^3 (1.8-7.8); NEUTROPHILS % (AUTO) 66 % (42-75); PLATELET COUNT 304 10^3/uL (130-400); WHITE BLOOD COUNT 9.2 10^3/uL (4.3-11.0)
[2018-09-10] MEDS: LACTATED RINGERS 1,000 ML IV PRN ×2 (08:15→10:30)
[2018-09-10] MEDS ORDERED: ceFAZolin 2 GM/50 ML NS 50 ML ONE (08:17)
[2018-09-10] MEDS ORDERED: metroNIDAZOLE 500MG/100ML IVPB 100 ML ONE (08:18)
[2018-09-10 08:20] LABS: BUN/CREATININE RATIO 10; CALCIUM 9.3 MG/DL (8.5-10.1); CARBON DIOXIDE 20 MMOL/L (21-32); CHLORIDE 106 MMOL/L (98-107); CREATININE SERUM 0.63 MG/DL (0.60-1.30); GFR ESTIMATED > 60; GLUCOSE 95 MG/DL (70-105); POTASSIUM 3.9 MMOL/L (3.6-5.0); SODIUM 139 MMOL/L (135-145)
[2018-09-10] MEDS ORDERED: fentaNYL INJECTION 100 MCG/2 ML AMP ONE (09:16)
[2018-09-10] MEDS ORDERED: LIDOCAINE PF 2% 5 ML (XYLOCAINE) VIAL ONE (09:16)
[2018-09-10] MEDS ORDERED: ONDANSETRON 4 MG/2 ML (SDV) Z0FRAN ONE (09:16)
[2018-09-10] MEDS ORDERED: MIDAZOLAM 2 MG/2 ML (VERSED) VIAL ONE (09:16)
[2018-09-10] MEDS ORDERED: ROCURONIUM 10 MG/ML 5 ML SYRINGE IV ONE (09:16)
[2018-09-10] MEDS ORDERED: proPOfol 200 MG/20 ML (DIPRIVAN) VIAL IV ONE (09:16)
[2018-09-10] MEDS ORDERED: SEVOFLURANE (ULTANE) 15 ML INHAL SOLN ONE (09:19)
--- NOTE | 2018-09-10 09:19 | Progress Note-Pre Operative ---
Pre-Operative Progress Note H&P Reviewed The H&P was reviewed, patient examined and no changes noted. Time Seen by Provider: 09:16 Date H&P Reviewed: September 10, 2018 Time H&P Reviewed: 09:17 Pre-Operative Diagnosis: Intra-abdominal abscess, possible perforated diver ticulitis CAMMIE MCLAIN DO September 10, 2018 09:19
[2018-09-10] MEDS ORDERED: DESFLURANE (SUPRANE) 15 ML INHAL SOLN ONE (11:22)
[2018-09-10] MEDS ORDERED: BUPIVACAINE 0.25% 30 ML (SENSORCAINE) VIAL ONE (11:23)
[2018-09-10] MEDS ORDERED: LACTATED RINGERS 1,000 ML IV SCH (11:25)
--- NOTE | 2018-09-10 11:25 | Progress Note-Post Operative ---
Post-Operative Progess Note Surgeon (s)/Health Sciences Program Coordinator (s) Surgeon CAMMIE MCLAIN DO Health Sciences Program Coordinator: Mike Pre-Operative Diagnosis Intra-abdominal abscess, possible perforated diverticulitis Post-Operative Diagnosis Perforated Diverticulitis Procedure & Operative Findings Date of Procedure 09/10/18 Procedure Performed/Findings Lap Hand assisted sigmoid colon resection Anesthesia Type GET Estimated Blood Loss Estimated blood loss (mL): less than 50ml Specimens/Packing Specimens Removed sigmoid colon CAMMIE MCLAIN DO September 10, 2018 11:25
[2018-09-10] MEDS ORDERED: ONDANSETRON 4 MG/2 ML (SDV) Z0FRAN IVP PRN ×2 (11:30→12:00)
[2018-09-10] MEDS ORDERED: KETOROLAC 30 MG/ML VIAL IVP SCH (11:30)
[2018-09-10] MEDS ORDERED: morphine INJ 10 MG/ML 1ML (SYR OR VIAL) IVP PRN (11:30)
[2018-09-10] MEDS ORDERED: morphine INJ 10 MG/ML 1ML (SYR OR VIAL) ONE (11:59)
[2018-09-10] MEDS ORDERED: MEPERIDINE (DEMEROL) INJ 50 MG/ML IVP ONE (12:00)
[2018-09-10] MEDS ORDERED: morphine INJ 10 MG/ML 1ML (SYR OR VIAL) IVP ONE (12:00)
[2018-09-10] MEDS ORDERED: HYDROmorphone 2 MG/ML VIAL (DILAUDID) IV ONE (12:00)
[2018-09-10] MEDS ORDERED: HYDROmorphone 2 MG/ML VIAL (DILAUDID) ONE (12:14)
--- NOTE | 2018-09-10 13:00 | NUR ---
SAMMY BRADFORD admitted to room 430-1, with an admitting diagnosis of POST LAPROSCOPY COLON RESECTION, on 09/10/18 from [facility] via BED, accompanied by ADVANCE AGENT KEEGAN.SAMMY BRADFORD introduced to surroundings, call light, bed controls, phone, TV, temperature control, lights, meal times, smoking policy, visitor policy, side rail policy, bathrooms and showers. Patient Rights given to patient in the handbook. SAMMY BRADFORD verbalizes understanding that [facility] is not responsible for the loss or damage to any personal effects or valuables that are kept in the patients posession during their hospitalization. SAMMY BRADFORD verbalizes understanding of Interdisciplinary Patient Education. Patient and/or family were informed about the Rapid Response Team and its purpose.
[2018-09-10] MEDS: ACETAMINOPHEN 500 MG TAB (TYLENOL) PO SCH ×2 (15:38→19:23)
[2018-09-10] MEDS: KETOROLAC 30 MG/ML VIAL IVP SCH ×2 (15:53→22:05)
[2018-09-10] MEDS: ceFAZolin 2 GM IV Premixed 50 ML IV SCH (18:32)
[2018-09-10] MEDS: metroNIDAZOLE 500MG/100ML IVPB 100 ML IV SCH (19:22)
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
--- NOTE | 2018-09-10 23:25 | OPERATIVE REPORT ---
DATE OF SERVICE: 09/10/2018 PREOPERATIVE DIAGNOSES: Intra-abdominal abscess and questionable perforated diverticulitis. POSTOPERATIVE DIAGNOSIS: Perforated diverticulitis. PROCEDURE: Laparoscopic hand-assisted sigmoid colon resection. SURGEON: Cammie Lopez DO. VOCATIONAL TRAINER: Domingo Mckeon DO. ANESTHESIA: General endotracheal tube. SPECIMEN: Sigmoid colon. BLOOD LOSS: Less than 50 mL. FLUIDS: Per anesthesia. POSTOPERATIVE CONDITION: Stable. INDICATION FOR PROCEDURE: The patient is a 42-year-old female, who had an intra-abdominal abscess that had been drained and unsure whether this was a perforated diverticulitis or tubo-ovarian abscess, but she wanted to get this looked at and fixed if need be. FINDINGS: The patient had a thickened colon, looked like perforated diverticulitis. I elected to remove this and reconnect in one surgery. PROCEDURE NOTE: After informed consent was obtained, the patient was brought to the operating room, placed on the table in dorsal lithotomy position. She was sterilely prepped and draped in normal fashion. I started by making an incision just above the umbilicus with first local lidocaine. I then made an incision with #11 blade, carried down through the skin and subcutaneous tissue, deepened down to subcutaneous tissue with Bovie electrocautery down to the fascia. Fascia incised with Bovie electrocautery. I bluntly entered the abdomen, swept a finger around and placed 11 mm trocar port under direct visualization and created pneumoperitoneum. I then placed two more ports, two 5 ports placed in the right lower quadrant using local lidocaine, 11 blade was used for stab incision and the VersaStep system, all done under direct visualization. The patient placed slightly Trendelenburg. I could see a lot of adhesions in the left lower quadrant. I carefully started taking these down with some blunt dissection as well as then using a LigaSure. It looked and felt like a perforated diverticulitis. At this point, I switched to create a hand port. I increased the incision to about 5 cm or down around and below the umbilicus with a #15 blade, carried down to the skin and subcutaneous tissue, then deepened down to subcutaneous tissue with Bovie electrocautery down to the fascia. Fascia was incised with Bovie electrocautery. I then placed a wound protector and then placed the hand GelPort. I placed another 11 mm port in the left lower quadrant with local lidocaine, 11-blade for stab incision and VersaStep system, all done under direct visualization to be able to place the port here. I was able to place a hand into the hand port and then carefully started bluntly dissecting the inflammatory tissue away. I could feel the firmness of the sigmoid colon and started pulling the colon gently towards the midline. I used the LigaSure to score along the white line of Toldt and then with blunt dissection and careful cutting of the white line of Toldt, I was able to go all the way up to the splenic flexure and then gently pulled all this to the midline and pulled this over very nicely. I felt like the left ovary was pretty attached to all of this inflammatory area as well and able to carefully remove this away with some blunt dissection. It looked like the capsule of ovary was torn, but was not bleeding, so I elected to leave this alone. At this point, I then switched to one of the lowest incision from a 5 mm to a 12 mm to be able to bring in the Endo-BARBARA. I used the LigaSure to make a hole in the mesentery on a section of sigmoid and rectum area to be able to get the Endo-BARBARA across. I was able to get under here and then placed an Endo-BARBARA across the distal portion, clamped and fired, thereby transecting the colon. I then came across the mesocolon with the LigaSure clamping, coagulating to get a little bit of bleeding, but this was controlled with a LigaSure. I continued taking this up until we were able to free up the sigmoid colon and descending colon and after we all felt like we will be able to pull through the midline incision, I elected to then pull this through the midline incision, placed a clamp across the colon and then placed a pursestring applicator, clamped and fired, then cut across the pursestring applicator removed this colon, passed it off the table and then removed the pursestring applicator. The colon was pretty small. I elected to place a 25 ILS stapling, placing the anvil in here and then tied this in place with the pursestring applicator and then I went down below, placed this anvil back in and then dilated up with 25 and then 28 rectal dilator and then placed the 25 ILS stapler. I could see it come up to the end of the stump and brought the trocar out through the stump and then placed the anvil into the trocar and then clamped this down all the way, held for a minute and then clamped and fired and then turned 3 quarters turn and removed the stapler. Two good donuts were seen. Dr. Mckeon then held the colon and placed fluid in the pelvis. I then inserted the air using the rigid sigmoidoscope. No leak was seen. At this point, I then allowed the air to escape. I switched gloves and gowns and went back up. We removed all ports under direct visualization as well as the hand port and then elected to close the midline incision with a #1 double stranded PDS suture running from the superior portion to the inferior portion tying to itself, copiously irrigated all incisions with normal saline and then closed all incisions with catrachita. Area was cleaned and dried, dressing was placed. The patient then transferred to the recovery room in stable condition. Sponge, instrument and needle counts were correct at the end of the case. Dr. Mckeon assisted in this case, helping to make incisions, closed the incisions, identifying anatomy as well as move anatomy out of the way. Job ID: [id number] DocumentID: [id number] Dictated Date: 09/10/2018 14:39:32 [employer] Date: 09/10/2018 23:25:08 Dictated By: CAMMIE LOPEZ DO
[2018-09-11] VITALS (7 sets, daily range): BP systolic 114–130; BP diastolic 59–71
[2018-09-11] MEDS: ceFAZolin 2 GM IV Premixed 50 ML IV SCH (00:16)
[2018-09-11] MEDS: metroNIDAZOLE 500MG/100ML IVPB 100 ML IV SCH (00:16)
[2018-09-11] MEDS: ACETAMINOPHEN 500 MG TAB (TYLENOL) PO SCH ×3 (03:56→19:59)
[2018-09-11] MEDS: KETOROLAC 30 MG/ML VIAL IVP SCH ×4 (03:59→21:37)
[2018-09-11] MEDS: PANTOPRAZOLE 40 MG (PROTONIX) VIAL IVP SCH (08:43)
--- NOTE | 2018-09-11 09:58 | Progress Note ---
Subjective Time Seen by a Provider: 09:36 Subjective/Events-last exam Pt seen and examined, complaints of pain at midline incision. +flatus and wants more than clear liquids Review of Systems Pulmonary: No Dyspnea, No Cough Cardiovascular: No: Chest Pain, Palpitations Gastrointestinal: No: Nausea, Vomiting Objective Exam Vital Signs Date Time Temp Pulse Resp B/P (MAP) Pulse Ox O2 Delivery O2 Flow Rate FiO2 09/11/18 08:00 97.4 88 18 128/71 (90) 99 Nasal Cannula 3.00 09/11/18 04:29 97.8 75 18 127/64 (85) 96 Nasal Cannula 3.00 09/11/18 00:07 97.6 75 18 128/66 (86) 94 Nasal Cannula 3.00 09/10/18 22:33 Nasal Cannula 3.00 09/10/18 21:00 Nasal Cannula 3.00 09/10/18 19:57 98.8 109 18 94 Nasal Cannula 3.00 09/10/18 16:25 98.0 09/10/18 16:25 98.0 09/10/18 15:40 98.0 95 18 131/75 (93) 96 Nasal Cannula 3.00 09/10/18 12:50 98.0 20 97 Nasal Cannula 3 09/10/18 12:40 20 97 Nasal Cannula 3 09/10/18 12:30 22 97 OxyMask 5 09/10/18 12:20 24 100 OxyMask 10 09/10/18 12:10 24 100 OxyMask 10 09/10/18 12:00 24 100 OxyMask 10 09/10/18 11:50 20 95 OxyMask 10 09/10/18 11:45 98.3 14 95 OxyMask 10 I & O 09/11/18 07:00 Intake Total 3500 ml Output Total 1375 ml Balance 2125 ml Capillary Refill : Less Than 3 Seconds General Appearance: No Apparent Distress, WD/WN Respiratory: Chest Non Tender, Lungs Clear, Normal Breath Sounds, No Accessory Muscle Use, No Respiratory Distress Cardiovascular: Regular Rate, Rhythm, No Murmur Gastrointestinal: soft, tenderness (at midline incision), other (incisions C/D/I) Assessment/Plan Assessment/Plan Assessment/Plan S/P Lap hand assisted Sigmoid colon resection Increase IS use and encourage ambulation. Will increase to soft diet. CAMMIE MCLAIN DO September 11, 2018 09:58
[2018-09-11] MEDS: ENOXAPARIN 40 MG/0.4 ML (LOVENOX) SYR SC SCH ×2 (11:57→23:19)
--- NOTE | 2018-09-11 19:38 | Anesthesia-General Post-Op ---
General Patient Condition Mental Status/LOC: Same as Preop Cardiovascular: Satisfactory Nausea/Vomiting: Absent Respiratory: Satisfactory Pain: Controlled Complications: Absent Post Op Complications Complications None Follow Up Care/Instructions Patient Instructions None needed. Anesthesia/Patient Condition Patient Condition Patient is doing well, no complaints, stable vital signs, no apparent adverse anesthesia problems. No complications reported per nursing. ALVA GREENE CRNA September 11, 2018 19:38
[2018-09-12] MEDS: KETOROLAC 30 MG/ML VIAL IVP SCH ×2 (03:59→09:11)
[2018-09-12] MEDS: ACETAMINOPHEN 500 MG TAB (TYLENOL) PO SCH ×2 (03:59→10:54)
[2018-09-12 04:12] VITALS: BP 145/65
[2018-09-12 08:00] VITALS: BP 112/74
[2018-09-12] MEDS: PANTOPRAZOLE 40 MG (PROTONIX) VIAL IVP SCH (09:10)
[2018-09-12] MEDS: ENOXAPARIN 40 MG/0.4 ML (LOVENOX) SYR SC SCH (10:54)
[2018-09-12] MEDS ORDERED: ACHD5005 PO (11:11)
--- NOTE | 2018-09-12 11:11 | Progress Note ---
Subjective Time Seen by a Provider: 11:05 Subjective/Events-last exam Pt seen and examined; states pain controlled, tolerating diet and wants to go home Review of Systems General: No Chills, No Night Sweats Pulmonary: No Dyspnea, No Cough Cardiovascular: No: Chest Pain, Palpitations Gastrointestinal: Abdominal Pain Objective Exam Vital Signs Date Time Temp Pulse Resp B/P (MAP) Pulse Ox O2 Delivery O2 Flow Rate FiO2 09/12/18 08:11 Room Air 09/12/18 08:00 97.4 78 20 112/74 (87) 96 Room Air 09/12/18 04:12 96.8 65 16 145/65 (91) 96 Room Air 09/11/18 23:49 98.5 64 16 130/70 (90) 96 Room Air 09/11/18 22:42 94 Room Air 09/11/18 21:00 Room Air 09/11/18 19:45 96.0 76 20 124/69 (87) 95 Room Air 09/11/18 16:30 97.6 79 20 119/71 (87) 94 Nasal Cannula 3.00 09/11/18 12:00 98.2 109 18 114/59 (77) 94 Nasal Cannula 3.00 I & O 09/12/18 07:00 Intake Total 1960 ml Output Total 850 ml Balance 1110 ml Capillary Refill : Less Than 3 Seconds General Appearance: No Apparent Distress, WD/WN Respiratory: Chest Non Tender, Lungs Clear, Normal Breath Sounds, No Accessory Muscle Use, No Respiratory Distress Cardiovascular: Regular Rate, Rhythm, No Murmur Gastrointestinal: soft, tenderness (at midline incision), other (incisions C/D/I) Results Lab Microbiology 09/10/18 MRSA Screen - Final, Complete MRSA not isolated Assessment/Plan Assessment/Plan Assessment/Plan S/P Lap hand assisted Sigmoid colon resection D/C home, continue IS use at home CAMMIE MCLAIN DO September 12, 2018 11:10
--- NOTE | 2018-09-12 11:12 | Discharge Inst-Surgical ---
Discharge Inst-Surgical Depart Medication/Instructions New, Converted or Re-Newed RX: RX Given to Pt/Family Patient Instructions Follow up Appt: Make appointment for 1 week. [phone] Instructions: No lifting greater than 20 pounds. No strenuous activity. May shower in 24 hours, no tub bath or soaking. Use incentive spirometer at home as directed. No Smoking Skin/Wound Care: May remove bandages in am. You need to leave the Dermabond on incision it will fall off on it's own. Symptoms to Report: Appetite Changes, Extremity Discoloration, Numbness/Tingling, Swelling Increased, Bleeding Excessive, Eyesight Changes, Pain Increased, Urine Color Change, Constipation(Persistent), Fever over 101 degree F, Pain/Pressure in chest, Urinating Difficulty, Cough Up/Vomit Blood, Heart Beat Irreg/Pounding, Pain/Pressure in jaw, Cramps in feet or legs, Lightheadedness, Pain/Pressure in shoulder, Diarrhea(Persistent), Memory Changes Suddenly, Questions/Concerns, Weight gain consecutive days, Dizziness/Fainting, Nausea/Vomiting, Shortness of Breath, Weight gain over 2 pounds If questions or concerns contact your physician Or seek help at emergency department. Activity Activity as Tolerated: Yes Activity Instructions: Avoid Stress to Incision Diet Discharge Diet: No Restrictions Diet After 24 Hours: Clear Liquid if Nauseous If Any Problems/Questions/Issu: Contact Your Physician, Go to Emergency Room Skin/Wound Care Infection Signs and Symptoms: Increased Redness, Foul Odor of Wound, Increased Drainage, Skin Itchy or Has a Rash, Increased Swelling, Temperature Above 101 F Bathing Instructions: Shower Stitches/[place]/Dermabond Dis: Care of CAMMIE Russell DO September 12, 2018 11:12
--- NOTE | 2018-09-12 12:05 | NUR ---
SAMMY BRADFORD demonstrates understanding of discharge instructions and accurately returns instructions upon questioning. Copy of Post-Discharge Instructions and Medication Discharge Instructions given to PT. SAMMY BRADFORD is able to manage continuing needs after discharge. Patients belongings returned to PT. Patient discharged from [facility] on 09/12/18 at 1205. SAMMY BRADFORD left floor via AMBULATORY, accompanied by STAFF AND .
--- NOTE | 2018-09-16 12:28 | Physician Query-Final Dx ---
NINOSKA CHANDRA 09/16/18 1228: Final Diagnosis Give Final Diagnosis Please give Final Diagnosis CAMMIE MCLAIN DO 09/17/18 1504: Final Diagnosis Give Final Diagnosis Perforated diverticulitis NINOSKA CHANDRA September 16, 2018 12:28 CAMMIE MCLAIN DO September 17, 2018 15:04
== END 2018-09-12 12:05 | disposition home or self-care (01) | DRG 330 ==
LOC: 4TH 07:06 → SURG 07:07 → EDSTATUS 08:50 → 4TH 13:00
PROVIDERS: ADMIT Surgery; ATTEND Surgery
PROC: 0DBN0ZZ Excision of Sigmoid Colon, Open Approach (ICD-10-PCS; principal; 2018-09-10 09:47)
DX: K57.20 Diverticulitis of large intestine with perforation and abscess without bleeding (principal); E66.01 Morbid (severe) obesity due to excess calories; Z68.42 Body mass index [BMI] 45.0-49.9, adult; Z87.891 Personal history of nicotine dependence
CPT/HCPCS: 36415; 80048; 84703; 85025; 86850; 86900; 86901; 87081; 88307; 94664; 94760

== ENCOUNTER 2018-10-02 21:43 | Emergency (ER) | payer SELFPAY ==
[~2018-10-02] VITALS: Ht 154.9 cm; Wt 121.1 kg
[2018-10-02] MEDS ORDERED: LACTATED RINGERS 1,000 ML IV ONE (22:12)
--- NOTE | 2018-10-02 22:20 | ED GU-Female ---
General Chief Complaint: - Urinary Stated Complaint: LOW BACK PAIN Nursing Triage Note: PT STATES HAVING DIVERTICULITIS SURGERY ON 09/10. PT STATES SHE HAS KIDNEY STONES WITH URGENCY AND FREQUENCY AND PAIN WITH URINATION. PT STATES LOWER BACK PAIN STARTED 1 HOUR PRIOR TO ARRIVAL. PT DENIES ANY TRAUMA TO BACK. Nursing Sepsis Screen: No Definite Risk Source: patient History of Present Illness Date Seen by Provider: Oct 02, 2018 Time Seen by Provider: 21:55 Initial Comments C/O LEFT LOWER BACK PAIN RADIATING TO LLQ AND LOWER ABDOMEN C/O URINARY URGENCY, FREQUENCY, SMALL AMOUNTS/ DRIBBLING OR CANNOT VOID AT ALL, AND BURNING ON URINATION + NAUSEA AND VOMITED X 1--PT STATES WHILE IN WAITING ROOM NO FEVER, BUT HAS HAD CHILLS--TEMP 98.6 AT HOME SYMPTOMS BEGAN 2 HOURS AGO HAS HAD KIDNEY STONES IN THE PAST--YEARS AGO, THIS FEELS EXACTLY THE SAME. HAD LITHOTRIPSY X 1, > 10 YEARS AGO. NO PROBLEMS SINCE TOOK IBUPROFEN WITHOUT RELIEF PT WAS ADMITTED 07/11-07/16 FOR PERFORATED DIVERTICULUM WITH ABSCESS AND HAD DRAIN PLACED READMITTED 07/18-07/22/18 FOR SEPSIS PT ADMITTED AGAIN 09/10/-09/12/18 FOR SAME, AND HAD SIGMOID COLON RESECTION PCP: [facility] SURGEON: DR. MCLAIN UROLOGY: WAS DR. NOEL YEARS AGO. Allergies and Home Medications Allergies Coded Allergies: clindamycin (Unverified Allergy, Unknown, 07/18/18) Home Medications Hydrocodone Bit/Acetaminophen 1 Tab Tab, 1 TAB PO Q6H PRN for PAIN-MODERATE Prescribed by: CAMMIE MCLAIN on 09/12/18 1111 Ketorolac Tromethamine 10 Mg Tablet, 10 MG PO Q6H Prescribed by: JENNIFER RAYMUNDO on 10/02/182326 Nitrofurantoin Monohyd/M-Cryst 100 Mg Capsule, 100 MG PO BID Prescribed by: JENNIFER RAYMUNDO on 10/02/182326 Ondansetron 4 Mg Tab.rapdis, 4 MG PO Q4H Prescribed by: JENNIFER RAYMUNDO on 10/02/182326 Tamsulosin HCl 0.4 Mg Cap, 0.4 MG PO DAILY Prescribed by: JENNIFER RAYMUNDO on 10/02/182326 Patient Home Medication List Home Medication List Reviewed: Yes Review of Systems Review of Systems Constitutional: see HPI, chills Respiratory: no symptoms reported Cardiovascular: no symptoms reported Gastrointestinal: LLQ, see HPI, abdominal pain; No constipation, No diarrhea; nausea, vomiting Genitourinary: see HPI, burning, dysuria, frequency, flank pain, pain, urgency LMP: September 10, 2018 (S/P BTL) Musculoskeletal: see HPI, back pain Skin: no symptoms reported Psychiatric/Neurological: No Symptoms Reported Endocrine: No Symptoms Reported Hematologic/Lymphatic: No Symptoms Reported Past Temdwjv-Gsqdls-Mhexgz Hx Patient Social History Alcohol Use: Occasionally Uses Recreational Drug Use: No Smoking Status: Current Everyday Smoker (1 PPD) Type Used: Cigarettes (1 PPD) Recent Foreign Travel: No Contact w/Someone Who Travel: No Recent Infectious Disease Expo: No Recent Hopitalizations: No Physical Abuse: No Sexual Abuse: No Mistreated: No Fear: No Immunizations Up To Date PED Vaccines UTD: No Seasonal Allergies Seasonal Allergies: No Past Medical History Surgeries: Yes (DRAINAGE OF ABDOMINAL ABSCESS 06/2018; SIGMOID RESECTION 09/10/18; ESWL) Abdominal, Bowel Surgery, Renal, Tubal Ligation Respiratory: No Currently Using CPAP: No Currently Using BIPAP: No Cardiac: No Neurological: No Reproductive Disorders: No Genitourinary: Yes Kidney Stones Gastrointestinal: Yes (PERFORATED DIVERTICULUM WITH ABSCESS--S/P DRAIN 06/2018 AND SIGMOID RESECTION 08/2018) Diverticulosis Musculoskeletal: No Endocrine: No HEENT: No Cancer: No Psychosocial: No Integumentary: No Blood Disorders: No Family Medical History Abdominal aortic aneurysm 19 MOTHER Asthma 19 FATHER G8 BROTHER Asthma Physical Exam Vital Signs Vital Signs - First Documented 10/02/18 10/02/18 21:54 23:41 Temp 98.0 Pulse 80 Resp 18 B/P (MAP) 148/74 (98) Pulse Ox 95 O2 Delivery Room Air Capillary Refill : Less Than 3 Seconds Height, Weight, BMI Height: 5'1.00" Weight: 267lbs. 6.0oz. 121.906379nt; 49.6 BMI Method:Stated General Appearance: no apparent distress, obese Cardiovascular: regular rate, rhythm, no murmur Respiratory: normal breath sounds Gastrointestinal: soft, tenderness (SUPRAPUBIC, LLQ AND LEFT FLANK) Back: CVA tenderness (L) Extremities: normal inspection Neurologic/Psychiatric: tablet tester II-XII nml as tested, no motor/sensory deficits, alert, normal mood/affect, oriented x 3 Skin: normal color, warm/dry; No rash Progress/Results/Core Measures Suspected Sepsis Recent Fever Within 48 Hours: No Infection Criteria Present: None New/Unexplained Altered Menta: No Sepsis Screen: No Definite Risk SIRS Temperature:98.0 Pulse: 80 Respiratory Rate: 18 Laboratory Tests 10/02/18 22:16: White Blood Count 12.7H Blood Pressure 148 /74 Mean: 98 Laboratory Tests 10/02/18 22:16: Creatinine 0.83, Platelet Count 336, Total Bilirubin 0.2 Results/Orders Lab Results Laboratory Tests Test 10/02/18 22:16 10/02/18 23:00 Range/Units White Blood Count 12.7 H 4.3-11.0 10^3/uL Red Blood Count 5.03 4.35-5.85 10^6/uL Hemoglobin 13.8 11.5-16.0 G/DL Hematocrit 43 35-52 % Mean Corpuscular Volume 85 80-99 FL Mean Corpuscular Hemoglobin 27 25-34 PG Mean Corpuscular Hemoglobin Concent 32 32-36 G/DL Red Cell Distribution Width 16.1 H 10.0-14.5 % Platelet Count 336 130-400 10^3/uL Mean Platelet Volume 9.5 7.4-10.4 FL Neutrophils (%) (Auto) 73 42-75 % Lymphocytes (%) (Auto) 18 12-44 % Monocytes (%) (Auto) 7 0-12 % Eosinophils (%) (Auto) 3 0-10 % Basophils (%) (Auto) 0 0-10 % Neutrophils # (Auto) 9.3 H 1.8-7.8 X 10^3 Lymphocytes # (Auto) 2.3 1.0-4.0 X 10^3 Monocytes # (Auto) 0.8 0.0-1.0 X 10^3 Eosinophils # (Auto) 0.3 0.0-0.3 10^3/uL Basophils # (Auto) 0.0 0.0-0.1 10^3/uL Sodium Level 138 135-145 MMOL/L Potassium Level 3.8 3.6-5.0 MMOL/L Chloride Level 100 98-107 MMOL/L Carbon Dioxide Level 27 21-32 MMOL/L Anion Gap 11 5-14 MMOL/L Blood Urea Nitrogen 10 7-18 MG/DL Creatinine 0.83 0.60-1.30 MG/DL Estimat Glomerular Filtration Rate > 60 BUN/Creatinine Ratio 12 Glucose Level 131 H 70-105 MG/DL Calcium Level 9.6 8.5-10.1 MG/DL Corrected Calcium 9.5 8.5-10.1 MG/DL Total Bilirubin 0.2 0.1-1.0 MG/DL Aspartate Amino Transf (AST/SGOT) 14 5-34 U/L Alanine Aminotransferase (ALT/SGPT) 14 0-55 U/L Alkaline Phosphatase 83 40-136 U/L Total Protein 7.4 6.4-8.2 GM/DL Albumin 4.1 3.2-4.5 GM/DL Amylase Level 55 25-125 U/L Lipase 55 8-78 U/L Serum Test, Qualitative NEGATIVE NEGATIVE Urine Color TREVA H Urine Clarity SLIGHTLY CLOUDY Urine pH 6.5 5-9 Urine Specific [place] 1.020 1.016-1.022 Urine Protein 2+ H NEGATIVE Urine Glucose (UA) NEGATIVE NEGATIVE Urine Ketones 1+ H NEGATIVE Urine Nitrite NEGATIVE NEGATIVE Urine Bilirubin NEGATIVE NEGATIVE Urine Urobilinogen NORMAL NORMAL MG/DL Urine Leukocyte Esterase 2+ H NEGATIVE Urine RBC (Auto) 5+ H NEGATIVE Urine RBC >100 H /HPF Urine WBC 0-2 /HPF Urine Squamous Epithelial Cells 5-10 /HPF Urine Crystals NONE /LPF Urine Bacteria TRACE /HPF Urine Casts NONE /LPF Urine Mucus NEGATIVE /LPF Urine Culture Indicated NO My Orders Orders - JENNIFER RAYMUNDO DO Ua Culture If Indicated (10/02/18 21:55) Ct Abd/Pelvis Wo(Kidney Stone) (10/02/18 22:12) Amylase (10/02/18 22:12) Cbc With Automated Diff (10/02/18 22:12) Comprehensive Metabolic Panel (10/02/18 22:12) Lipase (10/02/18 22:12) Acute Abd Series (10/02/18 22:12) Ed Iv/Invasive Line Start (10/02/18 22:12) Ed Iv/Invasive Line Start (10/02/18 22:12) Lactated Ringers (Lr 1000 Ml Iv Solution (10/02/18 22:12) Hcg,Qualitative Serum (10/02/18 22:12) Ondansetron Injection (Zofran Injectio (10/02/18 23:15) Ketorolac Injection (Toradol Injection) (10/02/18 23:15) Tamsulosin Capsule (Flomax Capsule) (10/02/18 23:30) Ceftriaxone For Iv Use (Rocephin For I (10/02/18 23:30) Rx-Ondansetron Po (Rx-Zofran Po) (10/02/18 23:45) Medications Given in ED Current Medications Medications Dose Ordered Sig/Carmen Route Start Time Stop Time Status Last Admin Dose Admin Ceftriaxone Sodium 1000 mg/ Sterile Water 10 ml @ 200 mls/hr ONCE ONCE IV 10/02/18 23:30 10/02/18 23:32 DC 10/02/18 23:38 200 MLS/HR Ketorolac Tromethamine 30 mg ONCE ONCE IVP 10/02/18 23:15 10/02/18 23:17 DC 10/02/18 23:11 30 MG Lactated Ringer's 1,000 ml @ 0 mls/hr Q0M ONCE IV 10/02/18 22:12 10/02/18 22:14 DC 10/02/18 22:22 0 MLS/HR Ondansetron HCl 8 mg ONCE ONCE IVP 10/02/18 23:15 10/02/18 23:17 DC 10/02/18 23:11 8 MG Vital Signs/I&O 10/02/18 10/02/18 10/02/18 21:54 23:41 23:52 Temp 98.0 98.0 Pulse 80 84 84 Resp 18 16 16 B/P (MAP) 148/74 (98) 132/82 (99) 132/82 (99) Pulse Ox 95 95 O2 Delivery Room Air Room Air Room Air 10/03/18 00:00 Intake Total 1010 ml Balance 1010 ml Capillary Refill : Less Than 3 Seconds Blood Pressure Mean: 98 Progress Note : Progress Note SYMPTOMS EASED AT DISMISSAL PT STATES SHE DOES HAVE HYDROCODONE AT HOME FROM RECENT SURGERY, HAS NOT TAKEN ANY FOR THIS PROBLEM Diagnostic Imaging Comments CT ABDOMEN/PELVIS--5 MM DISTAL URETERAL CALCULUS, 1 MM FROM LEFT UVJ, WITH MODERATE LEFT HYDRONEPHROSIS--PER [facility] VIA FAX @ 5292 ABDOMEN XRAYS--NO ACUTE PROCESS, PENDING RADIOLOGIST REVIEW Reviewed: Reviewed by Me Departure Impression Primary Impression: Calculus of distal left ureter Disposition: HOME, SELF-CARE Condition: Improved Departure-Patient Inst. Referrals: [facility] (PCP/Family) Primary Care Physician PEDRO VALDIVIA MD Patient Instructions: How to Strain Your Urine, Kidney Stones (DC) Add. Discharge Instructions: LOTS OF CLEAR LIQUIDS STRAIN ALL URINE--RETURN ANY STONES TO DR. VALDIVIA'S OFFICE TAKE YOUR HOME PAIN MEDICATIONS NEEDED FOLLOW UP WITH DR. VALDIVIA ON SATURDAY FOR FURTHER CARE RETURN TO ER IF WORSE All discharge instructions reviewed with patient and/or family. Voiced understanding. Scripts Tamsulosin HCl (Flomax) 0.4 Mg Cap 0.4 MG PO DAILY, #10 CAP Prov: JENNIFER RAYMUNDO DO 10/02/18 Ketorolac Tromethamine (Ketorolac Tromethamine) 10 Mg Tablet 10 MG PO Q6H for Pain, #15 TAB Prov: JENNIFER RAYMUNDO DO 10/02/18 Ondansetron (Ondansetron Odt) 4 Mg Tab.rapdis 4 MG PO Q4H for Nausea/Vomiting, #10 TAB Prov: JENNIFER RAYMUNDO DO 10/02/18 Nitrofurantoin Monohyd/M-Cryst (Macrobid 100 mg Capsule) 100 Mg Capsule 100 MG PO BID, #20 CAP Prov: JENNIFER RAYMUNDO DO 10/02/18 JENNIFER RAYMUNDO DO Oct 02, 2018 22:19
[2018-10-02 22:26] LABS: BASOPHILS % (AUTO) 0 % (0-10); EOSINOPHILS # (AUTO) 0.3 10^3/uL (0.0-0.3); EOSINOPHILS % (AUTO) 3 % (0-10); HEMATOCRIT 43 % (35-52); HEMOGLOBIN 13.8 G/DL (11.5-16.0); LYMPHOCYTES # (AUTO) 2.3 X 10^3 (1.0-4.0); LYMPHOCYTES % (AUTO) 18 % (12-44); MEAN CORPUSCULAR HEMOGLOBIN 27 PG (25-34); MEAN CORPUSCULAR HGB CONC 32 G/DL (32-36); MEAN CORPUSCULAR VOLUME 85 FL (80-99); MEAN PLATELET VOLUME 9.5 FL (7.4-10.4); MONOCYTES # (AUTO) 0.8 X 10^3 (0.0-1.0); MONOCYTES % (AUTO) 7 % (0-12); NEUTROPHILS # (AUTO) 9.3 X 10^3 (1.8-7.8); NEUTROPHILS % (AUTO) 73 % (42-75); PLATELET COUNT 336 10^3/uL (130-400); RED CELL DISTRIBUTION WIDTH 16.1 % (10.0-14.5); WHITE BLOOD COUNT 12.7 10^3/uL (4.3-11.0)
[2018-10-02 22:44] LABS: ALANINE AMINOTRANSFERASE 14 U/L (0-55); ALBUMIN 4.1 GM/DL (3.2-4.5); ALKALINE PHOSPHATASE 83 U/L (40-136); AMYLASE 55 U/L (25-125); BILIRUBIN,TOTAL 0.2 MG/DL (0.1-1.0); BUN/CREATININE RATIO 12; CALCIUM 9.6 MG/DL (8.5-10.1); CARBON DIOXIDE 27 MMOL/L (21-32); CHLORIDE 100 MMOL/L (98-107); CREATININE SERUM 0.83 MG/DL (0.60-1.30); GFR ESTIMATED > 60; GLUCOSE 131 MG/DL (70-105); LIPASE 55 U/L (8-78); POTASSIUM 3.8 MMOL/L (3.6-5.0); SODIUM 138 MMOL/L (135-145); TOTAL PROTEIN 7.4 GM/DL (6.4-8.2)
[2018-10-02 23:08] LABS: BILIRUBIN,URINE NEGATIVE (NEGATIVE); CLARITY,URINE SLIGHTLY CLOUDY; COLOR,URINE AMBER; GLUCOSE, URINE (UA) NEGATIVE (NEGATIVE); KETONES,URINE 1+ (NEGATIVE); LEUKOCYTE ESTERASE ,URINE 2+ (NEGATIVE); NITRITE,URINE NEGATIVE (NEGATIVE); PH,URINE 6.5 (5-9); PROTEIN,URINE 2+ (NEGATIVE); UROBILINOGEN,URINE NORMAL (NORMAL)
[2018-10-02] MEDS ORDERED: KETOROLAC 30 MG/ML VIAL IVP ONE (23:15)
[2018-10-02] MEDS ORDERED: ONDANSETRON 4 MG/2 ML (SDV) Z0FRAN IVP ONE (23:15)
[2018-10-02 23:22] LABS: RBC,URINE >100 /HPF
[2018-10-02 23:23] LABS: BACTERIA,URINE TRACE /HPF; WBC,URINE 0-2 /HPF
[2018-10-02] MEDS ORDERED: TAMS0.4C98 PO (23:27)
[2018-10-02] MEDS ORDERED: NITR-65 PO (23:27)
[2018-10-02] MEDS ORDERED: KETO10TA PO (23:27)
[2018-10-02] MEDS ORDERED: ONDA4TAB11 PO (23:27)
[2018-10-02] MEDS ORDERED: TAMSULOSIN 0.4 MG (FLOMAX) CAP PO SCH (23:30)
[2018-10-02] MEDS ORDERED: cefTRIAXone FOR IV USE 1,000 MG in WATER (STERILE) FOR INJECTION 10 ML IV ONE (23:30)
[2018-10-02 23:41] VITALS: BP 132/82
[2018-10-02] MEDS ORDERED: RX-ONDANSETRON 4 MG ODT (ZOFRAN) PPK #4 PO STA (23:45)
[2018-10-02 23:52] VITALS: BP 132/82
--- NOTE | 2018-10-03 06:32 | Diagnostic Imaging Report ---
CLINICAL INDICATION: Patient with calcification in the pelvis with one on left that correlates with left distal ureteral stone on CT. EXAMS: X-ray of the chest PA view and x-ray of the abdomen supine and upright views. COMPARISONS: CT scan of the abdomen and pelvis without contrast dated 10/02/2018. FINDINGS: LUNGS/ PLEURA: Lungs are clear. There is no pneumothorax. There is no pleural effusion. MEDIASTINUM: Unremarkable. PULMONARY VASCULATURE: Unremarkable. HEART: Unremarkable. BONES/ EXTRATHORACIC SOFT TISSUE: There are small spurs involving the thoracic spine. ABDOMEN AND PELVIS: Unremarkable x-ray of the abdomen with nonobstructed bowel gas pattern. There is no evidence of abdominal free air. Grossly 7 mm calcification is seen overlying the medial low left pelvis region measuring 7 mm in craniocaudal dimension, which correlates to a stone in the distal left ureter seen on comparison CT scan. Other phleboliths are seen in both sides of the pelvis. There is mild right curvature of the thoracolumbar spine. IMPRESSION: 1: There is a 7 mm calcification overlying the medial left low pelvis region which correlates to distal left ureteral stone. 2: Otherwise, x-ray of the abdomen and pelvis shows no other significant abnormality. 3: There is no radiographic evidence of acute cardiopulmonary process. Dictated by: Dictated on workstation # [id number]
--- NOTE | 2018-10-03 06:58 | Diagnostic Imaging Report ---
PROCEDURE: CT urinary tract, rule out kidney stone. TECHNIQUE: Multiple contiguous axial images were obtained through the abdomen and pelvis without the use of intravenous contrast. Auto Exposure Controls were utilized during the CT exam to meet ALARA standards for radiation dose reduction. INDICATION: Diverticulitis surgery on 09/10/2018. Kidney stones with urgency and frequency of urination, with pain. Low back pain. COMPARISON: 07/18/2018 FINDINGS: The lung bases are clear. The heart is normal in size. There is no pericardial effusion. The liver demonstrates no focal lesions. The spleen appears normal. The pancreas is normal. The adrenal glands are normal. There is a nonobstructing calculus in the right kidney measuring approximately 3 mm in size. There is no right hydronephrosis. There is mild left hydronephrosis and hydroureter with periureteral fat stranding as well as a obstructing 7 mm calculus in the distal left ureter a few centimeters from the ureterovesicular junction. The bowel loops are nondistended. There are postsurgical changes at the sigmoid colon. The appendix is normal. No free fluid or free air is seen. No fluid collections are seen. No acute osseous abnormality is seen. IMPRESSION: 1. Obstructing 7 mm calculus in the distal left ureter causing mild left hydroureteronephrosis. 2. Nonobstructing calculus in the right kidney. Dictated by: Dictated on workstation # [id number]
== END 2018-10-02 23:54 | disposition home or self-care (01) ==
LOC: EDUNIT# 21:43 → ER 21:44
DX: N13.2 Hydronephrosis with renal and ureteral calculous obstruction (principal); F17.210 Nicotine dependence, cigarettes, uncomplicated; Z98.890 Other specified postprocedural states; Z98.51 Tubal ligation status; Z90.49 Acquired absence of other specified parts of digestive tract; Z87.442 Personal history of urinary calculi; Z87.19 Personal history of other diseases of the digestive system; Z88.1 Allergy status to other antibiotic agents
CPT/HCPCS: 36415; 74022; 74176; 80053; 81000; 82150; 83690; 84703; 85025; 96361; 96374; 96375

== ENCOUNTER 2019-02-01 02:39 | Emergency (ER) | payer SELFPAY ==
[~2019-02-01] VITALS: Ht 155 cm; Wt 118.2 kg
[~2019-02-01 02:39] MED LIST changes: +KETO10TA PO; +ONDA4TAB11 PO; +TAMS0.4C98 PO
[2019-02-01] MEDS ORDERED: LACTATED RINGERS 1,000 ML IV ONE (02:50)
[2019-02-01] MEDS ORDERED: KETOROLAC 30 MG/ML VIAL IVP STA (03:09)
[2019-02-01] MEDS ORDERED: ONDANSETRON 4 MG/2 ML (SDV) Z0FRAN IVP ONE (03:15)
[2019-02-01 03:16] LABS: BASOPHILS % (AUTO) 0 % (0-10); EOSINOPHILS # (AUTO) 0.2 10^3/uL (0.0-0.3); EOSINOPHILS % (AUTO) 2 % (0-10); HEMATOCRIT 41 % (35-52); HEMOGLOBIN 13.3 G/DL (11.5-16.0); LYMPHOCYTES # (AUTO) 2.3 X 10^3 (1.0-4.0); LYMPHOCYTES % (AUTO) 23 % (12-44); MEAN CORPUSCULAR HEMOGLOBIN 29 PG (25-34); MEAN CORPUSCULAR HGB CONC 32 G/DL (32-36); MEAN CORPUSCULAR VOLUME 88 FL (80-99); MEAN PLATELET VOLUME 9.2 FL (7.4-10.4); MONOCYTES # (AUTO) 0.9 X 10^3 (0.0-1.0); MONOCYTES % (AUTO) 9 % (0-12); NEUTROPHILS # (AUTO) 6.4 X 10^3 (1.8-7.8); NEUTROPHILS % (AUTO) 65 % (42-75); PLATELET COUNT 279 10^3/uL (130-400); RED CELL DISTRIBUTION WIDTH 14.8 % (10.0-14.5); WHITE BLOOD COUNT 9.9 10^3/uL (4.3-11.0)
[2019-02-01 03:44] LABS: ALANINE AMINOTRANSFERASE 12 U/L (0-55); ALBUMIN 3.9 GM/DL (3.2-4.5); ALKALINE PHOSPHATASE 82 U/L (40-136); BILIRUBIN,TOTAL 0.3 MG/DL (0.1-1.0); BUN/CREATININE RATIO 20; CALCIUM 9.5 MG/DL (8.5-10.1); CARBON DIOXIDE 29 MMOL/L (21-32); CHLORIDE 102 MMOL/L (98-107); CREATININE SERUM 0.83 MG/DL (0.60-1.30); GFR ESTIMATED > 60; GLUCOSE 119 MG/DL (70-105); POTASSIUM 4.2 MMOL/L (3.6-5.0); SODIUM 140 MMOL/L (135-145)
--- NOTE | 2019-02-01 04:16 | ED GU-Female ---
General Chief Complaint: - Urinary Stated Complaint: KIDNEY STONES PASSING Nursing Triage Note: LEFT FLANK PAIN SINCE 1800 01/31/19 Nursing Sepsis Screen: No Definite Risk Source: patient History of Present Illness Date Seen by Provider: Feb 01, 2019 Time Seen by Provider: 02:50 Initial Comments PT ARRIVES VIA POV FROM HOME C/O LEFT FLANK PAIN RADIATING DOWN TO LLQ/LEFT PELVIS AREA SINCE 2100 TONIGHT C/O NAUSEA AND VOMITED X 5 NO DIARRHEA OR CONSTIPATION IS HAVING DIFFICULTY URINATING--MUCH URGENCY, FREQUENCY, DRIBBLES/CAN'T GO NO FEVER HAS HISTORY OF KIDNEY STONES--HAD LITHOTRIPSY IN 2010. HAS PASSED OTHERS ON HER OWN. USED TO SEE DR. NOEL HERE IN ER 10/02/18 AND HAD 5 MM LEFT DISTAL URETERAL STONE AT THAT TIME. PT THOUGHT SHE PASSED IT. PT STATES SHE ALSO HAD DIVERTICULITIS AND HAD AN ABSCESS, WITH SIMILAR SYMPTOMS--HAD PERCUTANEOUS DRAIN 06/2018, AND LATER COLON RESECTION 09/10/[address] MCLAIN. [facility] Allergies and Home Medications Allergies Coded Allergies: clindamycin (Unverified Allergy, Unknown, 07/18/18) Home Medications Hydrocodone/Ibuprofen 1 Each Tablet, 1 EACH PO Q4H PRN for PAIN-MODERATE Prescribed by: JENNIFER RAYMUNDO on 02/01/19422 Nitrofurantoin Monohyd/M-Cryst 100 Mg Capsule, 100 MG PO BID Prescribed by: JENNIFER RAYMUNDO on 02/01/19422 Ondansetron 4 Mg Tab.rapdis, 4 MG PO Q4H Prescribed by: JENNIFER RAYMUNDO on 02/01/19422 Tamsulosin HCl 0.4 Mg Cap, 0.4 MG PO DAILY Prescribed by: JENNIFER RAYMUNDO on 02/01/19422 Patient Home Medication List Home Medication List Reviewed: Yes Review of Systems Review of Systems Constitutional: no symptoms reported; No chills, No diaphoresis, No fever Respiratory: no symptoms reported Cardiovascular: no symptoms reported Gastrointestinal: see HPI, abdominal pain, loss of appetite, nausea, vomiting Genitourinary: see HPI, frequency, flank pain, urgency : No LMP: Jan 11, 2019 (NORMAL. S/P BTL) Musculoskeletal: see HPI, back pain Skin: no symptoms reported Psychiatric/Neurological: No Symptoms Reported Endocrine: No Symptoms Reported Hematologic/Lymphatic: No Symptoms Reported Past Revkvtr-Qnwwmz-Ayzklv Hx Patient Social History Alcohol Use: Denies Use Recreational Drug Use: No Smoking Status: Current Everyday Smoker (1 PPD) Type Used: Cigarettes Recent Foreign Travel: No Contact w/Someone Who Travel: No Recent Infectious Disease Expo: No Recent Hopitalizations: No Physical Abuse: No Sexual Abuse: No Mistreated: No Fear: No Immunizations Up To Date Tetanus Booster (TDap): Unknown PED Vaccines UTD: No Seasonal Allergies Seasonal Allergies: No Past Medical History Surgeries: Yes (DRAINAGE OF ABDOMINAL ABSCESS 06/2018; SIGMOID RESECTION 09/10/18; ESWL) Abdominal, Bowel Surgery, Renal, Tubal Ligation Respiratory: No Currently Using CPAP: No Currently Using BIPAP: No Cardiac: No Neurological: No : No Reproductive Disorders: No BRAZER RESISTANCE History: Tubal Ligation Genitourinary: Yes (LITHOTRIPSY [address] NOEL. PASSED OTHER STONES ON HER OWN) Kidney Stones, UTI-Chronic Gastrointestinal: Yes (DIVERTICULITIS WITH ABSCESS 06/2018--PERCUTANEOUS DRAIN 06/2018, COLON RESECTION 09/10/18) Diverticulosis Musculoskeletal: No Endocrine: No HEENT: No Cancer: No Psychosocial: No Integumentary: No Blood Disorders: No Family Medical History Abdominal aortic aneurysm 19 MOTHER Asthma 19 FATHER G8 BROTHER Asthma Physical Exam Vital Signs Vital Signs - First Documented 02/01/19 02:47 Temp 36.6 Pulse 83 Resp 18 B/P (MAP) 131/65 (87) Pulse Ox 96 O2 Delivery Room Air Capillary Refill : Less Than 3 Seconds Height, Weight, BMI Height: 5'1.00" Weight: 267lbs. 6.0oz. 121.553117op; 49.00 BMI Method:Stated General Appearance: no apparent distress (LAYING FLAT, RESTING QUIETLY. ), obese Cardiovascular: regular rate, rhythm, no murmur Respiratory: normal breath sounds, no respiratory distress, no accessory muscle use Gastrointestinal: normal bowel sounds, soft, no organomegaly, no pulsatile mass; No distended; tenderness (LLQ AND LEFT FLANK) Back: no vertebral tenderness, CVA tenderness (L) Extremities: normal inspection, no pedal edema, normal capillary refill Neurologic/Psychiatric: sound effects person II-XII nml as tested, no motor/sensory deficits, alert, normal mood/affect, oriented x 3 Skin: normal color, warm/dry; No rash Progress/Results/Core Measures Suspected Sepsis Recent Fever Within 48 Hours: No Infection Criteria Present: None New/Unexplained Altered Menta: No Sepsis Screen: No Definite Risk SIRS Temperature: Pulse: 83 Respiratory Rate: 18 Laboratory Tests 02/01/19 03:05: White Blood Count 9.9 Blood Pressure 131 /65 Mean: 87 Laboratory Tests 02/01/19 03:05: Creatinine 0.83, Platelet Count 279, Total Bilirubin 0.3 Results/Orders Lab Results Laboratory Tests Test 02/01/19 03:05 02/01/19 04:07 Range/Units White Blood Count 9.9 4.3-11.0 10^3/uL Red Blood Count 4.67 4.35-5.85 10^6/uL Hemoglobin 13.3 11.5-16.0 G/DL Hematocrit 41 35-52 % Mean Corpuscular Volume 88 80-99 FL Mean Corpuscular Hemoglobin 29 25-34 PG Mean Corpuscular Hemoglobin Concent 32 32-36 G/DL Red Cell Distribution Width 14.8 H 10.0-14.5 % Platelet Count 279 130-400 10^3/uL Mean Platelet Volume 9.2 7.4-10.4 FL Neutrophils (%) (Auto) 65 42-75 % Lymphocytes (%) (Auto) 23 12-44 % Monocytes (%) (Auto) 9 0-12 % Eosinophils (%) (Auto) 2 0-10 % Basophils (%) (Auto) 0 0-10 % Neutrophils # (Auto) 6.4 1.8-7.8 X 10^3 Lymphocytes # (Auto) 2.3 1.0-4.0 X 10^3 Monocytes # (Auto) 0.9 0.0-1.0 X 10^3 Eosinophils # (Auto) 0.2 0.0-0.3 10^3/uL Basophils # (Auto) 0.0 0.0-0.1 10^3/uL Sodium Level 140 135-145 MMOL/L Potassium Level 4.2 3.6-5.0 MMOL/L Chloride Level 102 98-107 MMOL/L Carbon Dioxide Level 29 21-32 MMOL/L Anion Gap 9 5-14 MMOL/L Blood Urea Nitrogen 17 7-18 MG/DL Creatinine 0.83 0.60-1.30 MG/DL Estimat Glomerular Filtration Rate > 60 BUN/Creatinine Ratio 20 Glucose Level 119 H 70-105 MG/DL Calcium Level 9.5 8.5-10.1 MG/DL Corrected Calcium 9.6 8.5-10.1 MG/DL Total Bilirubin 0.3 0.1-1.0 MG/DL Aspartate Amino Transf (AST/SGOT) 10 5-34 U/L Alanine Aminotransferase (ALT/SGPT) 12 0-55 U/L Alkaline Phosphatase 82 40-136 U/L Total Protein 7.0 6.4-8.2 GM/DL Albumin 3.9 3.2-4.5 GM/DL Urine Color YELLOW Urine Clarity CLEAR Urine pH 6 5-9 Urine Specific [place] 1.025 H 1.016-1.022 Urine Protein 2+ H NEGATIVE Urine Glucose (UA) NEGATIVE NEGATIVE Urine Ketones NEGATIVE NEGATIVE Urine Nitrite NEGATIVE NEGATIVE Urine Bilirubin NEGATIVE NEGATIVE Urine Urobilinogen NORMAL NORMAL MG/DL Urine Leukocyte Esterase 2+ H NEGATIVE Urine RBC (Auto) 4+ H NEGATIVE Urine RBC 5-10 H /HPF Urine WBC 0-2 /HPF Urine Squamous Epithelial Cells 5-10 /HPF Urine Crystals NONE /LPF Urine Bacteria FEW H /HPF Urine Casts NONE /LPF Urine Mucus MODERATE H /LPF Urine Culture Indicated NO My Orders Orders - JENNIFER RAYMUNDO DO Ed Iv/Invasive Line Start (02/01/19 02:50) Urine Bedside (02/01/19 02:50) Ct Abd/Pelvis Wo(Kidney Stone) (02/01/19 02:50) Acute Abd Series (02/01/19 02:50) Cbc With Automated Diff (02/01/19 02:50) Comprehensive Metabolic Panel (02/01/19 02:50) Ua Culture If Indicated (02/01/19 02:50) Ed Iv/Invasive Line Start (02/01/19 02:50) Lactated Ringers (Lr 1000 Ml Iv Solution (02/01/19 02:50) Ondansetron Injection (Zofran Injectio (02/01/19 03:15) Ketorolac Injection (Toradol Injection) (02/01/19 03:09) Nitrofurantoin Capsule,Macro (Macrobid C (02/01/19 04:30) Tamsulosin Capsule (Flomax Capsule) (02/01/19 04:30) Rx-Hydrocodone/Apap 5-325 Mg (Rx-Vicodin (02/01/19 04:30) Rx-Ondansetron Po (Rx-Zofran Po) (02/01/19 04:23) Medications Given in ED Current Medications Medications Dose Ordered Sig/Carmen Route Start Time Stop Time Status Last Admin Dose Admin Acetaminophen/ Hydrocodone Bitart 1 ea Q4H PRN PO 02/01/19 04:30 02/01/19 04:34 DC 02/01/19 04:27 1 EA Lactated Ringer's 1,000 ml @ 0 mls/hr Q0M ONCE IV 02/01/19 02:50 02/01/19 02:55 DC 02/01/19 03:09 0 MLS/HR Nitrofurantoin Macrocrystals 100 mg ONCE ONCE PO 02/01/19 04:30 02/01/19 04:31 DC 02/01/19 04:27 100 MG Ondansetron HCl 4 mg ONCE ONCE IVP 02/01/19 03:15 02/01/19 03:16 DC 02/01/19 03:12 4 MG Vital Signs/I&O 02/01/19 02/01/19 02/01/19 02:47 03:13 04:27 Temp 36.6 36.6 36.6 Pulse 83 77 Resp 18 16 B/P (MAP) 131/65 (87) 132/86 (87) Pulse Ox 96 98 O2 Delivery Room Air Room Air Capillary Refill : Less Than 3 Seconds Blood Pressure Mean: 87 Progress Note : Progress Note GIVEN TORADOL AND ZOFRAN, ALL SYMPTOMS RESOLVED. Diagnostic Imaging Comments ABDOMEN XRAYS--NO ACUTE PROCESS, MULTIPLE CALCIFICATIONS IN PELVIS--PENDING RADIOLOGIST REVIEW CT ABDOMEN / PELVIS--7.5 X 5 MM STONE LEFT DISTAL URETER AT UVJ, WITH MODERATE HYDRONEPHROSIS--PER [facility] VIA FAX AT [id number] Reviewed: Reviewed by Me Departure Impression Primary Impression: Calculus of distal left ureter Disposition: 01 HOME, SELF-CARE Condition: Improved Departure-Patient Inst. Referrals: [facility] (PCP/Family) Primary Care Physician PEDRO VALDIVIA MD Patient Instructions: How to Strain Your Urine, Kidney Stones (DC) Add. Discharge Instructions: LOTS OF FLUIDS STRAIN ALL URINE--RETURN ANY PASSED STONE TO DR'S OFFICE FOLLOW UP WITH DR. SHEA OR UROLOGIST OF CHOICE IN 1-2 DAYS FOR FURTHER CARE, RETURN TO ER IF WORSE All discharge instructions reviewed with patient and/or family. Voiced understanding. Scripts Ondansetron (Ondansetron Odt) 4 Mg Tab.rapdis 4 MG PO Q4H for Nausea/Vomiting, #10 TAB Prov: JENNIFER RAYMUNDO DO 02/01/19 Nitrofurantoin Monohyd/M-Cryst (Macrobid 100 mg Capsule) 100 Mg Capsule 100 MG PO BID, #20 CAP Prov: JENNIFER RAYMUNDO DO 02/01/19 Hydrocodone/Ibuprofen (Hydrocodone-Ibuprofen 7.5-200) 1 Each Tablet 1 EACH PO Q4H PRN for PAIN-MODERATE for 3 Days, #20 TAB Prov: JENNIFER RAYMUNDO DO 02/01/19 Tamsulosin HCl (Flomax) 0.4 Mg Cap 0.4 MG PO DAILY, #10 CAP Prov: JENNIFER RAYMUNDO DO 02/01/19 JENNIFER RAYMUNDO DO Feb 01, 2019 04:16
[2019-02-01] MEDS ORDERED: NITR-65 PO (04:23)
[2019-02-01] MEDS ORDERED: TAMS0.4C98 PO (04:23)
[2019-02-01] MEDS ORDERED: RX-ONDANSETRON 4 MG ODT (ZOFRAN) PPK #4 PO STA (04:23)
[2019-02-01] MEDS ORDERED: ONDA4TAB11 PO (04:23)
[2019-02-01] MEDS ORDERED: HYDR-87 PO (04:23)
[2019-02-01 04:24] LABS: BILIRUBIN,URINE NEGATIVE (NEGATIVE); CLARITY,URINE CLEAR; COLOR,URINE YELLOW; GLUCOSE, URINE (UA) NEGATIVE (NEGATIVE); KETONES,URINE NEGATIVE (NEGATIVE); LEUKOCYTE ESTERASE ,URINE 2+ (NEGATIVE); NITRITE,URINE NEGATIVE (NEGATIVE); PH,URINE 6 (5-9); PROTEIN,URINE 2+ (NEGATIVE); UROBILINOGEN,URINE NORMAL (NORMAL)
[2019-02-01 04:27] VITALS: BP 132/86
[2019-02-01] MEDS ORDERED: NITROFURANTOIN 100 MG (MACROBID) CAPSULE PO ONE (04:30)
[2019-02-01] MEDS ORDERED: RX-HYDROCODONE/APAP 5/325 MG #4 TAB PK PO PRN (04:30)
[2019-02-01] MEDS ORDERED: TAMSULOSIN 0.4 MG (FLOMAX) CAP PO SCH (04:30)
[2019-02-01 04:45] LABS: BACTERIA,URINE FEW /HPF; WBC,URINE 0-2 /HPF
--- NOTE | 2019-02-01 06:51 | Diagnostic Imaging Report ---
PROCEDURE: CT urinary tract, rule out kidney stone. TECHNIQUE: Multiple contiguous axial images were obtained through the abdomen and pelvis without the use of intravenous contrast. Auto Exposure Controls were utilized during the CT exam to meet ALARA standards for radiation dose reduction. INDICATION: Left flank pain. Correlation is made with prior CT from 10/02/2018. FINDINGS: The lung bases are clear. The liver and gallbladder are unremarkable. No biliary ductal dilatation is seen. The pancreas and spleen are unremarkable. No adrenal mass is detected. The right kidney is unremarkable. Left kidney does demonstrate moderate hydroureteronephrosis. The dilated left ureter is traced into the pelvis where there is an approximately 7 mm calculus at the UVJ. No bladder calculi are seen. Aorta is non-aneurysmal. There is normal caliber small and large bowel loops. There appear to be postsurgical changes at the rectosigmoid junction. No free fluid or fluid collection is identified. There appears to be a small ovarian cyst on the right. IMPRESSION: 7 mm left UVJ calculus producing moderate hydroureteronephrosis. Dictated by: Dictated on workstation # [id number]
--- NOTE | 2019-02-01 07:02 | Diagnostic Imaging Report ---
EXAMINATION: Abdominal radiographs, acute series. DATE: February 01, 2019. CLINICAL INDICATION: 43-year-old female, left flank pain. COMPARISON: October 02, 2018. COMMENTS: Heart size and mediastinal contours are unremarkable. There is no identified pneumothorax. There is no large pleural effusion. There is a 6 mm nodular opacity in the right upper lobe which is stable since October 02, 2018. This appears high in attenuation and is most likely calcified. There is no identified free intraperitoneal air. There is a 7 mm calcification to the left of midline which may relate to a stone at the level of the left ureterovesical junction. IMPRESSION: 1. Potential 7 mm stone in the left distal ureter at the level of the ureterovesical junction. Further evaluation with CT abdomen and pelvis is recommended. Dictated by: Dictated on workstation # [id number]
== END 2019-02-01 04:34 | disposition home or self-care (01) ==
LOC: EDUNIT# 02:39 → ER 02:40
DX: N13.2 Hydronephrosis with renal and ureteral calculous obstruction (principal); F17.210 Nicotine dependence, cigarettes, uncomplicated; Z88.1 Allergy status to other antibiotic agents; Z98.51 Tubal ligation status; Z87.442 Personal history of urinary calculi; Z87.440 Personal history of urinary (tract) infections; Z87.19 Personal history of other diseases of the digestive system
CPT/HCPCS: 36415; 74022; 74176; 80053; 81000; 84703; 85025

== ENCOUNTER 2019-10-01 05:37 | Outpatient (RCR) | payer OTHER ==
[~2019-10-01] VITALS: Ht 154.9 cm; Wt 134.5 kg
[~2019-10-01 05:37] MED LIST changes: +HYDR-87 PO; -TAMS0.4C98 PO; +TMSL.4C PO
== END 2019-10-01 15:03 | disposition home or self-care (01) ==
LOC: PREOP 05:37
PROVIDERS: ATTEND Surgery
DX: Z01.812 Encounter for preprocedural laboratory examination (principal); Z20.828 Contact with and (suspected) exposure to other viral communicable diseases; Z87.19 Personal history of other diseases of the digestive system
CPT/HCPCS: 87635

== ENCOUNTER 2019-10-05 08:49 | Day surgery (SDC) | payer OTHER ==
[~2019-10-05] VITALS: Ht 154.9 cm; Wt 134.5 kg
[2019-10-05] MEDS ORDERED: LACTATED RINGERS 1,000 ML IV ONE (08:57)
[2019-10-05] MEDS ORDERED: LACTATED RINGERS 1,000 ML IV STA (09:03)
--- NOTE | 2019-10-05 09:20 | Progress Note-Pre Operative ---
Pre-Operative Progress Note H&P Reviewed The H&P was reviewed, patient examined and no changes noted. Time Seen by Provider: 09:17 Date H&P Reviewed: Oct 05, 2019 Time H&P Reviewed: 09:17 Pre-Operative Diagnosis: hx of diverticulitis, ck anastomosis CAMMIE MCLAIN DO Oct 05, 2019 09:20
[2019-10-05 09:35] VITALS: BP 123/73
[2019-10-05] MEDS ORDERED: MIDAZOLAM 2 MG/2 ML (VERSED) VIAL ONE (09:59)
[2019-10-05] MEDS ORDERED: PROPOFOL INJECTION 50 ML IV ONE (09:59)
[2019-10-05 10:25] VITALS: BP 110/55
--- NOTE | 2019-10-05 10:28 | Endoscopy Discharge Instruct ---
Endo Procedure/Findings Findings 1.: Polyp 2.: Diverticulosis 3.: Internal Hemorrhoids Discharge Instructions - Activity: You might feel a little sleepy until tomorrow. This is due to the medicine you received to relax you. Until tomorrow, you should: NOT drive a car, operate machinery or power tools. NOT drink any alcoholic beverages. NOT make any important decisions or sign importortant papers. Do not return to work until tomorrow, unless otherwise instructed. Resume previous activities tomorrow. Diet: Start by taking liquids. If you tolerate liquids, advance to solid food. make appt for 2 weeks 1.: Colonscopy in 5 years Notify Physician - If you experience excessive bleeding, unusual abdominal pain, fever, or chest pain, contact your doctor immediately. CAMMIE MCLAIN DO Oct 05, 2019 10:28
--- NOTE | 2019-10-05 10:28 | Progress Note-Post Operative ---
Post-Operative Progess Note Surgeon (s)/Tenter Frame Operator (s) Surgeon CAMMIE MCLAIN DO Tenter Frame Operator: none Pre-Operative Diagnosis hx of diverticulitis, ck anastomosis Post-Operative Diagnosis Polyp Diverticula hemorrhoids Procedure & Operative Findings Date of Procedure 10/05/19 Procedure Performed/Findings colon with snare Anesthesia Type IV sedation by NUDE MODEL Estimated Blood Loss Estimated blood loss (mL): scant Specimens/Packing Specimens Removed colon polyp CAMMIE MCLAIN DO Oct 05, 2019 10:28
[2019-10-05 10:30] VITALS: BP 125/65
[2019-10-05 10:35] VITALS: BP 138/68
[2019-10-05 10:55] VITALS: BP 136/81
[2019-10-05 11:05] VITALS: BP 136/81
--- NOTE | 2019-10-05 11:06 | Anesthesia-General Post-Op ---
MAC Patient Condition Mental Status/LOC: Same as Preop Cardiovascular: Satisfactory Nausea/Vomiting: Absent Respiratory: Satisfactory Pain: Controlled Complications: Absent Post Op Complications Complications None Follow Up Care/Instructions Patient Instructions None needed. Anesthesiology Discharge Order Discharge Order Patient is doing well, no complaints, stable vital signs, no apparent adverse anesthesia problems. No complications reported per nursing. SHIMON JIM CRNA Oct 05, 2019 11:06
--- NOTE | 2019-10-06 01:19 | OPERATIVE REPORT ---
DATE OF SERVICE: 10/05/2019 PREOPERATIVE DIAGNOSES: History of diverticulitis. POSTOPERATIVE DIAGNOSES: Colon polyps, diverticula, internal hemorrhoids. PROCEDURE: Colonoscopy with snare polypectomy. SURGEON: Mannie Lopez DO CONSUMER PRODUCT ADVISOR: None. ANESTHESIA: IV sedation by the CARGO CHECKER. SPECIMEN: A polyp taken from just proximal to the anastomosis. BLOOD LOSS: Scant. FLUIDS: Per anesthesia. POSTOPERATIVE CONDITION: Stable. INDICATION FOR PROCEDURE: The patient is a 44-year-old female who had a recent diverticulitis with perforation and needed a colonoscopy. FINDINGS: The patient had a large polyp just above the anastomosis and she had 1 or 2 small diverticula and some very small internal hemorrhoids. PROCEDURE NOTE: After informed consent was obtained, the patient was brought to the endoscopy suite, placed in bed in left lateral decubitus position. She was administered IV sedation by the CARGO CHECKER, who then monitored her vitals the entire time, heart rate, blood pressure and pulse ox and the scope was inserted. On the way in, noted a polyp just proximal to the anastomosis. Also took a picture of anastomosis. Pushed all the way into the cecum, took a picture of appendiceal orifice, noted the ileocecal valve and then slowly withdrew the scope insufflating to look circumferentially at the zhu, looking at the cecum, up the ascending colon to the hepatic flexure, then down the transverse colon, the splenic flexure and into the descending colon. She did have a resection of descending colon and sigmoid; just above the anastomosis of the polyp again elected to do a snare polypectomy. Cut down pretty far on the stalk and did a hot snare to remove this and then actually suctioned the polyp up to the scope and pulled the scope all the way out to get the polyp and then pushed the scope back in; took a picture of the spot where we removed the polyp, it looked good. There was no bleeding. Took another picture of the anastomosis; there were a couple of diverticula next to it and then continued down into the rectum, retroflexed in the rectal vault, saw some very minimal internal hemorrhoids and then removed the scope. The patient tolerated the procedure, recovered in endoscopy suite. Job ID: [id number] DocumentID: [id number] Dictated Date: 10/05/2019 16:41:47 Sausage Grinder Date: 10/06/2019 01:18:36 Dictated By: MANNIE LOPEZ DO SEAVIEW HOSPITALMichelle
== END 2019-10-05 11:05 | disposition home or self-care (01) ==
LOC: ENDO 08:49
PROVIDERS: ATTEND Surgery
DX: K51.40 Inflammatory polyps of colon without complications (principal); K57.30 Diverticulosis of large intestine without perforation or abscess without bleeding; K64.8 Other hemorrhoids; F17.210 Nicotine dependence, cigarettes, uncomplicated; E66.01 Morbid (severe) obesity due to excess calories; Z87.440 Personal history of urinary (tract) infections; Z88.1 Allergy status to other antibiotic agents; Z90.49 Acquired absence of other specified parts of digestive tract; Z68.43 Body mass index [BMI] 50.0-59.9, adult; Z82.5 Family history of asthma and other chronic lower respiratory diseases
CPT/HCPCS: 88305

== ENCOUNTER → 2020-01-04 | Outpatient (CLI) | payer OTHER ==
--- NOTE | 2020-01-04 09:19 | Diagnostic Imaging Report ---
PROCEDURE: US right lower extremity venous. TECHNIQUE: Multiple real-time grayscale images were obtained over the right lower extremity in various projections. Additional spectral analysis and color Doppler duplex images were also obtained. INDICATION: Right leg pain and swelling. There is no evidence of right lower extremity DVT. Right lower extremity deep venous system shows normal compressibility with normal response to augmentation and Valsalva. No fluid collection or masses detected. IMPRESSION: No evidence of right lower extremity DVT. Dictated by: Dictated on workstation # [id number]
== END ==
LOC: RAD 08:15
PROVIDERS: ATTEND Student in an Organized Health Care Education/Training Program
DX: M79.604 Pain in right leg (principal); M79.89 Other specified soft tissue disorders; R60.0 Localized edema; Z20.828 Contact with and (suspected) exposure to other viral communicable diseases

== ENCOUNTER 2020-10-05 05:40 | Outpatient (CLI) | payer OTHER ==
[~2020-10-05] VITALS: Ht 154.9 cm; Wt 140.6 kg
== END 2020-10-06 08:42 | disposition home or self-care (01) ==
LOC: PREOP 05:40
PROVIDERS: ATTEND Surgery
DX: Z01.818 Encounter for other preprocedural examination (principal)

== ENCOUNTER 2020-10-12 11:45 | Day surgery (SDC) | payer OTHER ==
[2020-10-12] VITALS (8 sets, daily range): BP systolic 118–158; BP diastolic 62–84
[~2020-10-12] VITALS: Ht 154.9 cm; Wt 140.6 kg
--- NOTE | 2020-10-12 11:53 | Progress Note-Pre Operative ---
Pre-Operative Progress Note H&P Reviewed The H&P was reviewed, patient examined and no changes noted. Time Seen by Provider: 11:51 Date H&P Reviewed: Oct 12, 2020 Time H&P Reviewed: 11:51 Pre-Operative Diagnosis: Hx of large colon polyp CAMMIE MCLAIN DO Oct 12, 2020 11:53
[2020-10-12] MEDS ORDERED: LACTATED RINGERS 1,000 ML IV STA (12:19)
[2020-10-12] MEDS ORDERED: LACTATED RINGERS 1,000 ML IV ONE (12:30)
[2020-10-12] MEDS ORDERED: PROPOFOL INJECTION 50 ML IV ONE ×2 (12:36→13:08)
--- NOTE | 2020-10-12 13:19 | Progress Note-Post Operative ---
Post-Operative Progess Note Surgeon (s)/Retail Area Manager (s) Surgeon CAMMIE MCLAIN DO Retail Area Manager: none Pre-Operative Diagnosis Hx of large colon polyp Post-Operative Diagnosis polyp diverticula int hemorrhoids Procedure & Operative Findings Date of Procedure 10/12/20 Procedure Performed/Findings After informed consent was obtained, the patient was brought to the endoscopy suite and placed in the bed in the left lateral decubitus position. She was administered IV sedation by the ASSISTANT MECHANIC, who then monitored her vitals the entire time, heart rate, blood pressure and pulse ox and the scope was inserted, started the colonoscopy. Pushed all the way into about 120 cm to get all the way to cecum, took a picture of the appendiceal orifice, noted the ileocecal valve and then slowly withdrew the scope, insufflating to look circumferentially at the zhu from the cecum, up the ascending colon to the hepatic flexure, then down the transverse colon, splenic flexure, into the descending colon saw a polyp and did a cold biopsy; right above the anastomosis. Noted some diverticula and finally into the rectum, retroflexed in the rectal vault, saw some very small internal hemorrhoids and took a picture of this. The patient tolerated the procedure and she recovered in the endoscopy suite. Anesthesia Type IV sedation by ASSISTANT MECHANIC Estimated Blood Loss Estimated blood loss (mL): scant Specimens/Packing Specimens Removed desc colon polyp CAMMIE MCLAIN DO Oct 12, 2020 13:19
--- NOTE | 2020-10-12 13:19 | Endoscopy Discharge Instruct ---
Endo Procedure/Findings Findings 1.: Polyp 2.: Diverticulosis 3.: Internal Hemorrhoids Discharge Instructions - Activity: You might feel a little sleepy until tomorrow. This is due to the medicine you received to relax you. Until tomorrow, you should: NOT drive a car, operate machinery or power tools. NOT drink any alcoholic beverages. NOT make any important decisions or sign importortant papers. Do not return to work until tomorrow, unless otherwise instructed. Resume previous activities tomorrow. Diet: Start by taking liquids. If you tolerate liquids, advance to solid food. 1.: Colonscopy in 5 years Notify Physician - If you experience excessive bleeding, unusual abdominal pain, fever, or chest pain, contact your doctor immediately. CAMMIE MCLAIN DO Oct 12, 2020 13:19
== END 2020-10-12 14:15 | disposition home or self-care (01) ==
LOC: ENDO 11:45
PROVIDERS: ATTEND Surgery
DX: Z12.11 Encounter for screening for malignant neoplasm of colon (principal); K63.5 Polyp of colon; K57.30 Diverticulosis of large intestine without perforation or abscess without bleeding; K64.8 Other hemorrhoids; E66.01 Morbid (severe) obesity due to excess calories; F17.210 Nicotine dependence, cigarettes, uncomplicated; Z98.0 Intestinal bypass and anastomosis status; Z68.43 Body mass index [BMI] 50.0-59.9, adult; Z79.899 Other long term (current) drug therapy
CPT/HCPCS: 84703; 88305